=== PATIENT | female | born 1945 | race Caucasian/White ===

== ENCOUNTER → 2016-05-04 | Outpatient (REF) | payer MEDICARE, MEDICAID | LOC: M LAB REF 16:43 | PROVIDERS: ATTEND Nurse Practitioner Family | DX: D51.9 Vitamin B12 deficiency anemia, unspecified (principal); Z01.89 Encounter for other specified special examinations ==

== ENCOUNTER 2018-11-13 20:09 | Emergency (ER) | payer MEDICARE, OTHER ==
[~2018-11-13] VITALS: Ht 170.2 cm; Wt 90.9 kg
[2018-11-13] MEDS ORDERED: XALA0.007 OU (20:25)
[2018-11-13] MEDS ORDERED: ANOR1AER PO (20:25)
[2018-11-13] MEDS ORDERED: SIMB1SUS OS (20:25)
[2018-11-13] MEDS ORDERED: CYMB60CA3 PO (20:25)
[2018-11-13] MEDS ORDERED: VALP1CAP2 PO (20:25)
[2018-11-13] MEDS ORDERED: LIPI20TA PO (20:25)
[2018-11-13] MEDS ORDERED: RHOP0.02 OS (20:25)
[2018-11-13] MEDS ORDERED: SINE25TA5 PO (20:25)
[2018-11-13] MEDS ORDERED: CORE6.25 PO (20:25)
[2018-11-13] MEDS ORDERED: SERO1TAB3 PO (20:25)
[2018-11-13] MEDS ORDERED: POTA10TA16 PO (20:25)
[2018-11-13 21:43] LABS: HEMATOCRIT 31.1 % (36.0-47.0); HEMOGLOBIN 10.2 g/dl (12.0-15.5); MEAN CORPUSCULAR HEMOGLOBIN 29.7 pg (27.0-33.0); MEAN CORPUSCULAR HGB CONC 32.8 g/dl (32.0-36.5); MEAN CORPUSCULAR VOLUME 90.7 fl (80.0-96.0); PLATELET COUNT, AUTOMATED 101 10^3/uL (150-450); RED BLOOD COUNT 3.43 10^6/uL (4.00-5.40); WHITE BLOOD COUNT 5.1 10^3/uL (4.0-10.0)
[2018-11-13] MEDS ORDERED: ONDANSETRON 4MG/2ML VIAL (J2405) IV ONE (21:45)
[2018-11-13] MEDS ORDERED: NS 1,000 ML IV ONE (21:45)
[2018-11-13 21:51] LABS: ANISOCYTOSIS 1+; EOSINOPHILS 2 % (0-3); LYMPHOCYTES 23 % (16-44); MONOCYTES 3 % (0-5); NEUTROPHILS 71 % (28-66); POIKILOCYTOSIS 1+
[2018-11-13 21:52] LABS: PLATELET ESTIMATE DECREASED (NORMAL)
[2018-11-13 22:02] LABS: ALBUMIN 2.3 GM/DL (3.2-5.2); ALT/SGPT < 6 U/L (12-78); BILIRUBIN,DIRECT 0.1 MG/DL (0.0-0.2); BILIRUBIN,TOTAL 0.5 MG/DL (0.2-1.0); CK-MB VALUE MASS < 1.0 NG/ML (<3.6); CPK CREATINE PHOSPHOKINASE 43 U/L (26-192); LIPASE 81 U/L (73-393); MB/CK RELATIVE INDEX 2.33 (< OR =4); TOTAL PROTEIN 5.6 GM/DL (6.4-8.2); TROPONIN I < 0.02 NG/ML (< 0.10)
[2018-11-13 22:42] LABS: BLOOD UREA NITROGEN 21 MG/DL (7-18); CALCIUM LEVEL 7.9 MG/DL (8.8-10.2); CARBON DIOXIDE LEVEL 30 MEQ/L (21-32); CHLORIDE LEVEL 100 MEQ/L (98-107); CREATININE FOR GFR 0.76 MG/DL (0.55-1.30); GLOMERULAR FILTRATION RATE > 60.0 (>39); GLUCOSE, FASTING 108 MG/DL (70-100); POTASSIUM SERUM 3.7 MEQ/L (3.5-5.1); SODIUM LEVEL 137 MEQ/L (136-145)
[2018-11-13] MEDS ORDERED: ISOVUE-370 76% 100ML VIAL (Q9967) As Ordered ONE (23:12)
--- NOTE | 2018-11-14 00:27 | REPVR ---
PROCEDURE INFORMATION: Exam: CT Abdomen And Pelvis With Contrast Exam date and time: 11/13/2018 10:57 PM Clinical history: 73 years old, female; Abdominal pain; Epigastric; Additional info: Epigastric pain, n/v/d TECHNIQUE: Imaging protocol: Computed tomography of the abdomen and pelvis with intravenous contrast. Radiation optimization: All CT scans at this facility use at least one of these dose optimization techniques: automated exposure control; mA and/or kV adjustment per patient size (includes targeted exams where dose is matched to clinical indication); or iterative reconstruction. Contrast material: ISO; Contrast volume: 100 ml; Contrast route: AC; COMPARISON: No relevant prior studies available. FINDINGS: Liver: Normal. No mass. Gallbladder and bile ducts: There has been prior cholecystectomy. Pancreas: Normal. No ductal dilation. Spleen: Normal. No splenomegaly. Adrenals: Normal. No mass. Kidneys and ureters: There is an 11 mm heterogeneous solid mass in the upper pole of the left kidney. Small cysts elsewhere in the left kidney. Right kidney is unremarkable. No hydronephrosis. Stomach and bowel: Generalized wall thickening throughout the colon. No bowel obstruction. The small bowel is unremarkable. Appendix: No evidence of appendicitis. Intraperitoneal space: Trace free fluid in the pelvis. No pneumoperitoneum. Vasculature: No pneumatosis or portal venous gas. Lymph nodes: Unremarkable. No enlarged lymph nodes. Bladder: Mild urinary bladder wall thickening with mucosal enhancement. Reproductive: Unremarkable as visualized. Bones/joints: Unremarkable. No acute fracture. Soft tissues: Unremarkable. IMPRESSION: 1. Pancolitis. No bowel obstruction or perforation. 2. Small enhancing mass in the upper pole of the left kidney is concerning for renal cell neoplasm. No evidence of metastatic disease. 3. Bladder wall thickening concerning for cystitis. COMMENT: Consistent with the [employer]'s Incidental Findings Committee Report (J Am Javon Radiol 2010): Unless the patient's specific circumstances suggest otherwise, any liver lesion 0.5 cm or less, any cystic kidney lesion less than 1.0 cm, and/or any adrenal lesion 1.0 cm or less not otherwise characterized in this report as possessing suspicious or indeterminate imaging features is/are highly likely to be benign and do not require follow-up imaging or biopsy. Electronically signed by: Hadley Dsouza On 11/14/2018 00:27:36 AM
--- NOTE | 2018-11-14 00:34 | REPVR ---
PROCEDURE INFORMATION: Exam: CT Chest With Contrast Exam date and time: 11/13/2018 10:57 PM Clinical history: 73 years old, female; Chest pain; Type not specified; Additional info: Epigastric pain, n/v/d TECHNIQUE: Imaging protocol: Computed tomography of the chest with intravenous contrast. Radiation optimization: All CT scans at this facility use at least one of these dose optimization techniques: automated exposure control; mA and/or kV adjustment per patient size (includes targeted exams where dose is matched to clinical indication); or iterative reconstruction. Contrast material: ISO; Contrast volume: 100 ml; Contrast route: AC; COMPARISON: No relevant prior studies available. FINDINGS: Lungs: Advanced emphysematous changes. Postoperative changes with interstitial scarring in the right upper lobe. No air space consolidation. Airways are clear. Pleural space: Unremarkable. No pneumothorax. No pleural effusion. Heart: Unremarkable. No cardiomegaly. No pericardial effusion. Aorta: Unremarkable. No aortic aneurysm. Lymph nodes: Unremarkable. No enlarged lymph nodes. Bones/joints: Unremarkable. No acute fracture. Soft tissues: Unremarkable. IMPRESSION: 1. Postoperative changes in the right upper lobe. 2. Emphysema. 3. No acute disease. Electronically signed by: Hadley Dsouza On 11/14/2018 00:34:02 AM
[2018-11-14] MEDS ORDERED: CIPROFLOXACIN 500 MG TAB PO ONE (04:30)
[2018-11-14] MEDS ORDERED: metroNIDAZOLE (FLAGYL) 500 MG TAB PO ONE (04:30)
[2018-11-14] MEDS ORDERED: FLAG500T PO (04:32)
[2018-11-14] MEDS ORDERED: CIPR-249 PO (04:32)
[2018-11-14] MEDS ORDERED: ONDA4TAB6 PO (04:32)
[2018-11-14 04:39] VITALS: BP 154/78
--- NOTE | 2018-11-15 07:46 | ED PDOC ---
Post-Departure Follow-[facility] ct abd/p for fu Kathleen Waite MD Nov 15, 2018 07:46
== END 2018-11-14 05:13 | disposition home or self-care (01) ==
LOC: M ED 20:09
DX: N30.00 Acute cystitis without hematuria (principal); K52.9 Noninfective gastroenteritis and colitis, unspecified; R93.422 Abnormal radiologic findings on diagnostic imaging of left kidney; J43.9 Emphysema, unspecified; I10 Essential (primary) hypertension; Z79.899 Other long term (current) drug therapy; Z79.82 Long term (current) use of aspirin

== ENCOUNTER 2018-11-16 05:13 | Inpatient (IN) | payer MEDICARE, OTHER ==
[2018-11-16] VITALS (9 sets, daily range): BP systolic 112–149; BP diastolic 56–80
[~2018-11-16] VITALS: Ht 162.6 cm; Wt 99.2 kg
[~2018-11-16 05:13] MED LIST: ANOR1AER PO; CIPR-249 PO; CORE6.25 PO; CYMB60CA3 PO; FLAG500T PO; LIPI20TA PO; ONDA4TAB6 PO; POTA10TA16 PO; RHOP0.02 OS; SERO1TAB3 PO; SIMB1SUS OS; SINE25TA5 PO; VALP1CAP2 PO; XALA0.007 OU
[2018-11-16 05:49] LABS: BASO # 0.1 10^3/uL (0.0-0.2); BASO % 0.4 % (0.0-1.0); EOS # 0.3 10^3/uL (0.0-0.5); EOS % 2.7 % (0.0-3.0); HEMATOCRIT 35.6 % (36.0-47.0); HEMOGLOBIN 11.4 g/dl (12.0-15.5); LYMPH % 17.4 % (24.0-44.0); MEAN CORPUSCULAR HEMOGLOBIN 29.6 pg (27.0-33.0); MEAN CORPUSCULAR VOLUME 92.5 fl (80.0-96.0); MONO # 0.7 10^3/uL (0.0-0.8); MONO % 5.9 % (0.0-5.0); NEUTROPHILS # 8.3 10^3/uL (1.5-8.5); NEUTROPHILS % 72.7 % (36.0-66.0); RED BLOOD COUNT 3.85 10^6/uL (4.00-5.40); WHITE BLOOD COUNT 11.4 10^3/uL (4.0-10.0)
[2018-11-16] MEDS ORDERED: VALPROATE SOD IV ONE (06:00)
[2018-11-16] MEDS ORDERED: D5W IV ONE (06:00)
[2018-11-16 06:11] LABS: ALBUMIN 2.4 GM/DL (3.2-5.2); ALT/SGPT < 6 U/L (12-78); BILIRUBIN,DIRECT 0.1 MG/DL (0.0-0.2); BILIRUBIN,TOTAL 0.5 MG/DL (0.2-1.0); BLOOD UREA NITROGEN 14 MG/DL (7-18); CALCIUM LEVEL 8.2 MG/DL (8.8-10.2); CARBON DIOXIDE LEVEL 26 MEQ/L (21-32); CHLORIDE LEVEL 102 MEQ/L (98-107); CREATININE FOR GFR 0.96 MG/DL (0.55-1.30); GLOMERULAR FILTRATION RATE > 60.0 (>39); GLUCOSE, FASTING 129 MG/DL (70-100); POTASSIUM SERUM 3.8 MEQ/L (3.5-5.1); SODIUM LEVEL 137 MEQ/L (136-145); TOTAL PROTEIN 6.1 GM/DL (6.4-8.2); VALPROIC ACID (DEPAKOTE) 49.7 UG/ML (50.0-100.0)
[2018-11-16 06:13] LABS: PLATELET COUNT, AUTOMATED 91 10^3/uL (150-450)
[2018-11-16] MEDS ORDERED: NS 1,000 ML IV ONE (06:15)
--- NOTE | 2018-11-16 07:12 | REPVR ---
PROCEDURE INFORMATION: Exam: CT Head Without Contrast Exam date and time: 11/16/2018 5:58 AM Clinical history: 73 years old, female; Other: Seizure; Additional info: Status epilep TECHNIQUE: Imaging protocol: Computed tomography of the head without contrast. Radiation optimization: All CT scans at this facility use at least one of these dose optimization techniques: automated exposure control; mA and/or kV adjustment per patient size (includes targeted exams where dose is matched to clinical indication); or iterative reconstruction. COMPARISON: No relevant prior studies available. FINDINGS: Brain: There are well-demarcated areas of parenchymal hypoattenuation involving the bilateral parietal and occipital lobes. No evidence of acute intracranial hemorrhage or acute ischemic infarction within constraints of axial only imaging technique. Mild parenchymal volume loss. Questionable small amount of encephalomalacia and gliosis in the more anterior aspect of the left frontal lobe, difficult to ascertain for certain given axial technique. Ventricles: No ventriculomegaly. Bones/joints: No acute fracture. Sinuses: Visualized sinuses are unremarkable. No fluid levels. Mastoid air cells: Visualized mastoid air cells are well aerated. Soft tissues: Unremarkable. IMPRESSION: 1. No acute intracranial hemorrhage or convincingly acute ischemic infarction. 2. Large areas of hypoattenuation in the bilateral posterior cerebral hemispheres is nonspecific and may be the sequelae of subacute to chronic infarction (arterial or venous) or trauma. Edema as can be seen with posterior reversible encephalopathic syndrome it is possible in the appropriate clinical setting. Consider brain MRI for further evaluation. Electronically signed by: Arnaud Tee On 11/16/2018 07:11:57 AM
[2018-11-16] MEDS ORDERED: CHOL100029 PO (07:53)
[2018-11-16] MEDS ORDERED: SENO8.6T5 PO ×2 (07:53)
[2018-11-16] MEDS ORDERED: SALOPAD4 TOP (07:53)
[2018-11-16] MEDS ORDERED: METR-265 PO (07:53)
[2018-11-16] MEDS ORDERED: ACET-897 PO (07:53)
[2018-11-16] MEDS ORDERED: CIPR500T3 PO (07:53)
[2018-11-16] MEDS ORDERED: ATOR40TA75 PO (07:53)
[2018-11-16] MEDS ORDERED: ONDA4TAB6 PO (07:53)
[2018-11-16] MEDS ORDERED: LORazepam 2 MG/ML VIAL (J2060) IV STA (08:09)
[2018-11-16] MEDS ORDERED: ASPIRIN 300 MG SUPP PR STA (08:12)
[2018-11-16] MEDS ORDERED: levETIRAcetam INJection 1,000 MG in D5W 100 ML IV ONE (08:15)
[2018-11-16] MEDS ORDERED: ISOVUE-370 76% 100ML VIAL (Q9967) As Ordered ONE (08:20)
--- NOTE | 2018-11-16 09:10 | REPVR ---
PROCEDURE INFORMATION: Exam: CT Angiography Head With Contrast Exam date and time: 11/16/2018 8:32 AM Clinical history: 73 years old, female; Pain; Headache; Additional info: Evaluate for large vessel occlusion TECHNIQUE: Imaging protocol: Computed tomography angiography of the head with intravenous contrast. 3D rendering: MIP and 3D reconstructed images were created and reviewed. Radiation optimization: All CT scans at this facility use at least one of these dose optimization techniques: automated exposure control; mA and/or kV adjustment per patient size (includes targeted exams where dose is matched to clinical indication); or iterative reconstruction. Contrast material: ISOVUE 370; Contrast volume: 75 ml; Contrast route: IV; COMPARISON: CT Head without contrast 11/16/2018 6:04 AM FINDINGS: There is no high-grade stenosis, occlusion, dissection, or other acute abnormality of the distal internal carotid arteries, basilar artery, anterior, middle, or posterior cerebral arteries. No evidence of high flow vascular malformation. 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 Mild intracranial atherosclerosis. IMPRESSION: No high-grade stenosis or occlusion of the major [place] vasculature. 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 Electronically signed by: Arnaud Tee On 11/16/2018 09:09:59 AM
--- NOTE | 2018-11-16 09:17 | REPVR ---
PROCEDURE INFORMATION: Exam: CT Angiography Neck With Contrast Exam date and time: 11/16/2018 8:32 AM Clinical history: 73 years old, female; Pain; Headache; Additional info: Possible large vessel occlusion TECHNIQUE: Imaging protocol: Computed tomography angiography of the neck with intravenous contrast. 3D rendering: MIP and 3D reconstructed images were created and reviewed. Radiation optimization: All CT scans at this facility use at least one of these dose optimization techniques: automated exposure control; mA and/or kV adjustment per patient size (includes targeted exams where dose is matched to clinical indication); or iterative reconstruction. Contrast material: ISOVUE 370; Contrast volume: 75 ml; Contrast route: IV; COMPARISON: No relevant prior studies available. FINDINGS: There is no high-grade stenosis, occlusion, dissection, aneurysm, or other acute abnormality of the cervical carotid or vertebral arteries. Moderate calcified and noncalcified atherosclerotic plaque along the aortic arch mild atherosclerosis at the carotid bifurcations, with mild, less than 50% narrowing. Upper lung centrilobular emphysema, and surgical changes in the right upper lung with nodular soft tissue again present measuring up to 1.8 cm in the suprahilar region. IMPRESSION: No high-grade stenosis or occlusion of the cervical carotid or vertebral arteries. Surgical changes in the right upper lobe with nodular soft tissue in the suprahilar region. COMMENT: Reference per NASCET criteria for degree of stenosis: Mild: less than 50% stenosis. Moderate: 50-69% stenosis. Severe: 70-94% stenosis. Near occlusion: 95-99% stenosis. Electronically signed by: Arnaud Tee On 11/16/2018 09:17:15 AM
--- NOTE | 2018-11-16 09:36 | REP ---
REASON: Aspiration. COMPARISON: 05/20/2007, the latest prior. The technique utilized in obtaining the radiograph has magnified the cardiac silhouette and accentuated the interstitial markings. FINDINGS: The superior mediastinal structures are midline. The cardiac silhouette is unremarkable in size, shape, and position. The diaphragmatic surfaces of the lungs are regular, and the costophrenic angles are clear. The pulmonary matos are clear. The imaged osseous structures are intact. IMPRESSION: There is no acute cardiopulmonary disease. No significant change from the prior exam other than technique. Electronically Signed by Rajat Rodnon DO 11/16/2018 09:44 A
[2018-11-16] MEDS: NS 1,000 ML IV SCH ×2 (10:10→22:37)
--- NOTE | 2018-11-16 12:28 | HPEPDOC ---
[facility] Medical History & Physical Date of Admission Nov 16, 2018 Date of Service: Nov 16, 2018 Attending Physician: CUBA HARRELL MD History and Physical CHIEF COMPLAINT: Seizure activity HISTORY OF PRESENT ILLNESS: Patient is a 73 year old female who presented to the [facility] Emergency department via EMS accompanied by her sister. The entirety of the history was ascertained from the patients sister as the patient was nonverbal. The patient had recently arrived in [place]. Previously she was in [place] with her son who is her health care proxy. The patients sister had stated that she was previously hospitalized in [place] for Posterior Reversible encephalopathy Syndrome. The patients sister is unsure of the details surrounding the patients original presentation when she was hospitalized in [place]. She does state that the patient has lost her eyesight since developing PRES when in [place]. The patient was started on Valproic acid while in [place] and completed rehab. The patient was then discharged on returned to [facility]. According to the patients sister the patient was doing well when she returned. She was able to ambulate with assistance due to her vision loss and she was able to speak coherently. On November 13 2018, the patient was taken to the ER where she was diagnosed with a UTI. She had received an abdominal/pelvis CT at the time which demonstrated pancolitis and a small enhancing mass in the upper pole of the left kidney concerning for renal cell neoplasm however, no evidence of metastatic disease. She was treated with Cipro and Flagyl and discharged. The patients sister stated that since that time the patient appeared to be doing well. The patients sister states yesterday at 10:30 she had spoken with the patient and she appeared to be doing well. At around 0330 hrs the patients sister stated that the patient had called her stating that she was "feeling odd" and stated that she "couldn't speak very well" The patients sister had stated that the pa tient was not slurring her speech. The sister had arrived to find the patient sitting up with "twitching of her body" and had stated that it looked like a seizure. The patient remained awake during this event and according to the sister was able to comprehend and follow commands. EMS was called and upon arrival the patient started "twitching more violently". The patient was subsequently taken to [facility] ER. At the ER the patient was found to be nonresponsive and she was given 400mg Valproate IV. According to the ER provider the patient had shown improvement although was still non-verbal. The patient received a head CT which demonstrated no acute intracranial hemorrhage or acute ischemic infarction. There were large areas of hypoattenuation in the bilateral posterior cerebral hemispheres as well as edema consistent with PRES. Hospitalist service was subsequently contacted for further evaluation and management. On evaluation in the ER the patient remained nonverbal. She was arousable and followed commands. Her head was turned to the left with gaze to the left as well. She had hypertonic jerking motions of her left upper and lower extremity that was worse distally. Neurology was contacted for consultation and patient was given IV Ativan. A stat MRI was ordered in addition to CT angiography of the head and neck. Patient's last known well time was possibly 1030 PM or earlier. She was far outside the window to receive tPA. Imaging studies were acquired stat in the ER to evaluate for any large vessel disease; which did not reveal that to be the c ase. PAST MEDICAL HISTORY: Unknown as patient is currently non-verbal. Patients sister was unable to provide a Past medical history with exception to PRES 1. Posterior Reversible Encephalopathy Syndrome (PRES) 2. Recent diagnosis of Pancolitis and UTI/cystitis on Nov 13 2018 PAST SURGICAL HISTORY: Unknown as patient is nonverbal. SOCIAL HISTORY: Patient lives at home alone. FAMILY HISTORY: She has a sister who is alive and well. She has a son who is her health care proxy and lives in [place]. ALLERGIES: Please see below. REVIEW OF SYSTEMS: Unable to complete ROS as patient is non-verbal HOME MEDICATIONS: Please see below. PHYSICAL EXAMINATION: VITAL SIGNS: Temperature 95.9, pulse 78, respiratory rate 22, blood pressure 121/79, pulse oximetry 89% on room air. GENERAL APPEARANCE: Patient is awake. She does not appear to be in acute distress. She is lying in bed with head turned to her left and eyes gazed to left HEENT: Atraumatic, normocephalic. Eyes are nonicteric. Pupils are reactive to light although sluggish. Excessive secretions CARDIOVASCULAR: Normal S1, S2. Regular rhythm. Tachycardic rate. No clicks, rubs, or murmurs LUNGS: Clear vesicular lung sounds bilaterally. No wheezes, rhonchi, or rales ABDOMEN: Soft, nondistended. No rigidity. Normoactive bowel sounds. No palpable masses. No splenomegaly EXTREMITIES: No edema. Full and equal pulses in bilateral upper and lower extremities NEUROLOGICAL: Patient appears awake and alert. It appears she is able to follow some commands although this is inconsistent at times. Her Eyes are reactive to light although sluggish. Her gaze is predominately to the left although not fixed. Horizontal nystagmus is noted. There is no facial asymmetry. Patient has perioral fasciculations. The patients head is rotated and side bent to the left with hypertonicity of her left SCM. The patients right side appears to be hypotonic and areflexic. Her left side is hypertonic and hyperreflexic. She has lead pipe rigidity on her left arm and leg. She does have clonus elicited on the left lower extremity. As well as positive babinski bilaterally. Patient appears to have excess secretions and may indicate a difficulty with swallowing LABORATORY DATA: See below. IMAGING: REASON: Aspiration. COMPARISON: 05/20/2007, the latest prior. The technique utilized in obtaining the radiograph has magnified the cardiac silhouette and accentuated the interstitial markings. FINDINGS: The superior mediastinal structures are midline. The cardiac silhouette is unremarkable in size, shape, and position. The diaphragmatic surfaces of the lungs are regular, and the costophrenic angles are clear. The pulmonary matos are clear. The imaged osseous structures are intact. IMPRESSION: There is no acute cardiopulmonary disease. No significant change from the prior exam other than technique. Electronically Signed by Rajat Rondon DO 11/16/2018 09 PROCEDURE INFORMATION: Exam: CT Head Without Contrast Exam date and time: 11/16/2018 5:58 AM Clinical history: 73 years old, female; Other: Seizure; Additional info: Status epilep TECHNIQUE: Imaging protocol: Computed tomography of the head without contrast. Radiation optimization: All CT scans at this facility use at least one of these dose optimization techniques: automated exposure control; mA and/or kV adjustment per patient size (includes targeted exams where dose is matched to clinical indication); or iterative reconstruction. COMPARISON: No relevant prior studies available. FINDINGS: Brain: There are well-demarcated areas of parenchymal hypoattenuation involving the bilateral parietal and occipital lobes. No evidence of acute intracranial hemorrhage or acute ischemic infarction within constraints of axial only imaging technique. Mild parenchymal volume loss. Questionable small amount of encephalomalacia and gliosis in the more anterior aspect of the left frontal lobe, difficult to ascertain for certain given axial technique. Ventricles: No ventriculomegaly. Bones/joints: No acute fracture. Sinuses: Visualized sinuses are unremarkable. No fluid levels. Mastoid air cells: Visualized mastoid air cells are well aerated. Soft tissues: Unremarkable. IMPRESSION: 1. No acute intracranial hemorrhage or convincingly acute ischemic infarction. 2. Large areas of hypoattenuation in the bilateral posterior cerebral hemispheres is nonspecific and may be the sequelae of subacute to chronic infarction (arterial or venous) or trauma. Edema as can be seen with posterior reversible encephalopathic syndrome it is possible in the appropriate clinical setting. Consider brain MRI for further evaluation. Electronically signed by: Arnaud Tee On 11/16/2018 07:11:57 AM PROCEDURE INFORMATION: Exam: CT Angiography Head With Contrast Exam date and time: 11/16/2018 8:32 AM Clinical history: 73 years old, female; Pain; Headache; Additional info: Evaluate for large vessel occlusion TECHNIQUE: Imaging protocol: Computed tomography angiography of the head with intravenous contrast. 3D rendering: MIP and 3D reconstructed images were created and reviewed. Radiation optimization: All CT scans at this facility use at least one of these dose optimization techniques: automated exposure control; mA and/or kV adjustment per patient size (includes targeted exams where dose is matched to clinical indication); or iterative reconstruction. Contrast material: ISOVUE 370; Contrast volume: 75 ml; Contrast route: IV; COMPARISON: CT Head without contrast 11/16/2018 6:04 AM FINDINGS: There is no high-grade stenosis, occlusion, dissection, or other acute abnormality of the distal internal carotid arteries, basilar artery, anterior, middle, or posterior cerebral arteries. No evidence of high flow vascular malformation. 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 Mild intracranial atherosclerosis. IMPRESSION: No high-grade stenosis or occlusion of the major [place] vasculature. 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 Electronically signed by: Arnaud Tee On 11/16/2018 09:09:59 AM PROCEDURE INFORMATION: Exam: CT Angiography Neck With Contrast Exam date and time: 11/16/2018 8:32 AM Clinical history: 73 years old, female; Pain; Headache; Additional info: Possible large vessel occlusion TECHNIQUE: Imaging protocol: Computed tomography angiography of the neck with intravenous contrast. 3D rendering: MIP and 3D reconstructed images were created and reviewed. Radiation optimization: All CT scans at this facility use at least one of these dose optimization techniques: automated exposure control; mA and/or kV adjustment per patient size (includes targeted exams where dose is matched to clinical indication); or iterative reconstruction. Contrast material: ISOVUE 370; Contrast volume: 75 ml; Contrast route: IV; COMPARISON: No relevant prior studies available. FINDINGS: There is no high-grade stenosis, occlusion, dissection, aneurysm, or other acute abnormality of the cervical carotid or vertebral arteries. Moderate calcified and noncalcified atherosclerotic plaque along the aortic arch mild atherosclerosis at the carotid bifurcations, with mild, less than 50% narrowing. Upper lung centrilobular emphysema, and surgical changes in the right upper lung with nodular soft tissue again present measuring up to 1.8 cm in the suprahilar region. IMPRESSION: No high-grade stenosis or occlusion of the cervical carotid or vertebral arteries. Surgical changes in the right upper lobe with nodular soft tissue in the suprahilar region. COMMENT: Reference per NASCET criteria for degree of stenosis: Mild: less than 50% stenosis. Moderate: 50-69% stenosis. Severe: 70-94% stenosis. Near occlusion: 95-99% stenosis. Electronically signed by: Arnaud Tee On 11/16/2018 09:17:15 AM MICROBIOLOGY: Please see below. ASSESSMENT: Patient is a 73 year old female with a past medical history of PRES who presented to the [facility] ER via EMS for suspected stroke/seizure. Patient has received 400mg IV Valproic Acid, 1,000 mg IV Keppra, and IV Ativan. Neurology has been contacted and consulted with recommendations for further imaging with MRI . PLAN: Altered Mental Status / acute metabolic encephalopathy - possibly 2/2 post-ictal state - 2/2 to seizure; less likely 2/2 ischemic stroke -Patient presented with symptoms inconsistent with stroke or seizure. Her last known well was 2230 hr and places her outside the window for TPA. She has neurological symptoms that can not be attributed to a single etiology. She does have a history of PRES which can cause seizures. Patient has been on Valproic acid outpatient. -Patient's valproic level was subtherapeutic; her sister has indicated several episodes of vomiting and inability to keep down medications - possible suggesting why she developed subtherapeutic valproic acid and a seizure -Plan to admit to ICU for close monitoring. Q1H neurological checks. -IV Keppra and Seizure Precautions -CT angiography of head and Neck. -MRI brain w/O STAT -NPO diet -If patient develops seizure activity will consider Dilantin -Will get PT / OT / Speech therapy involved once mentation improves - Neurology has been consulted; appreciate their input Possible aspiration - patient was reported to have vomited several times in the ER - mild leukocytosis, positive lactic acidosis - Imaging completed did not reveal any evidence of infiltrate - Patient has been on antibiotics as an outpatient for suspected UTI / pancolitis; was covered with Ciprofloxacin and Flagyl - Recent urine culture has resulted in Klebsiella Pneumonia - Will cover with Zosyn (re: coverage for gram negative and anaerobic organisms) Lactic acidosis - has resolved - c/w IV fluid hydration Normocytic anemia Thrombocytopenia Elevated glucose - will check a1c DVT prophylaxis - c/w TEDs/ sequentials Vital Signs Vital Signs Date Time Temp Pulse Resp B/P (MAP) Pulse Ox O2 Delivery O2 Flow Rate FiO2 11/16/18 09:45 71 20 105/51 (69) 98 Nasal Cannula 11/16/18 08:45 3.0 11/16/18 05:33 95.9 Laboratory Data Labs 24H Laboratory Tests 2 11/16/18 05:27: Immature Granulocyte % (Auto) 0.9, White Blood Count 11.4H, Red Blood Count 3.85L, Hemoglobin 11.4L, Hematocrit 35.6L, Mean Corpuscular Volume 92.5, Mean Corpuscular Hemoglobin 29.6, Mean Corpuscular Hemoglobin Concent 32.0, Red Cell Distribution Width 14.9H, Platelet Count 91L, Neutrophils (%) (Auto) 72.7H, L ymphocytes (%) (Auto) 17.4L, Monocytes (%) (Auto) 5.9H, Eosinophils (%) (Auto) 2.7, Basophils (%) (Auto) 0.4, Neutrophils # (Auto) 8.3, Lymphocytes # (Auto) 2.0, Monocytes # (Auto) 0.7, Eosinophils # (Auto) 0.3, Basophils # (Auto) 0.1, Nucleated Red Blood Cells % (auto) 0.0, Immature Platelet Fraction 4.2, Anion Gap 9, Glomerular Filtration Rate > 60.0, Calcium Level 8.2L, Aspartate Amino Transf (AST/SGOT) 7, Alanine Aminotransferase (ALT/SGPT) < 6L, Alkaline Phosphatase 59, Total Bilirubin 0.5, Direct Bilirubin 0.1, Total Protein 6.1L, Albumin 2.4L, Albumin/Globulin Ratio 0.65L, Valproic Acid (Depakene) Level 49.7L 11/16/18 05:28: Bedside Glucose (Misc Panel) 136H 11/16/18 05:36: Lactic Acid Level 5.7*H CBC/BMP Laboratory Tests 11/16/18 05:27 Red Blood Count 3.85 L, Mean Corpuscular Volume 92.5, Mean Corpuscular Hemoglobin 29.6, Mean Corpuscular Hemoglobin Concent 32.0, Red Cell Distribution Width 14.9 H, Neutrophils (%) (Auto) 72.7 H, Lymphocytes (%) (Auto) 17.4 L, Monocytes (%) (Auto) 5.9 H, Eosinophils (%) (Auto) 2.7, Basophils (%) (Auto) 0.4, Neutrophils # (Auto) 8.3, Lymphocytes # (Auto) 2.0, Monocytes # (Auto) 0.7, Eosinophils # (Auto) 0.3, Basophils # (Auto) 0.1 Home Medications Scheduled Atorvastatin Calcium (Atorvastatin Calcium) 40 Mg Tablet, 40 MG PO QHS Brinzolamide/Brimonidine Tart (Simbrinza 1%-0.2% Eye Drops) 8 Ml Drops.susp, 1 DROP OS TID Carbidopa/Levodopa (Sinemet 25-100 mg Tablet) 1 Each Tablet, 2 TAB PO TID Carvedilol (Coreg) 6.25 Mg Tablet, 6.25 MG PO BID Ciprofloxacin HCl (Ciprofloxacin HCl) 500 Mg Tablet, 500 MG PO BID FILLED 11/14/18 FOR 7 DAYS Duloxetine Hcl (Cymbalta) 60 Mg Capsule.dr, 60 MG PO DAILY Latanoprost (Xalatan) 0.005% 2.5ML Drops, 1 DROP OU QHS Methyl Salicylate/Menthol (Salonpas Patch) 1 Each Adh..patch, 2 PATCH TOP DAILY APPLY TO AREA OF PAIN, REMOVE IN THE EVENING Metronidazole (Metronidazole) 500 Mg Tablet, 500 MG PO Q8H FILLED 11/14/18 FOR 10 DAYS Netarsudil Mesylate (Rhopressa) 2.5 Ml Drops, 1 DROP OS DAILY Potassium Chloride (Potassium Chloride) 10 Meq Tab.er.prt, 20 MEQ PO DAILY Quetiapine Fumarate (Seroquel) 25 Mg Tablet, 12.5 MG PO BID Sennosides (Senokot) 8.6 Mg Tablet, 17.2 MG PO QHS Umeclidinium Brm/Vilanterol Tr (Anoro Ellipta 62.5-25 Mcg INH) 1 Each Blst.w.dev, 1 PUFF PO DAILY Valproic Acid (Valproic Acid) 250 Mg Capsule, 500 MG PO TID Vitamin D (Vitamin D3) 1,000 Unit Tablet, 1,000 UNITS PO DAILY TAKE AFTER LUNCH Scheduled PRN Acetaminophen (Tylenol Extra Strength) 500 Mg Tablet, 1,000 MG PO TID PRN for PAIN Ondansetron (Ondansetron Odt) 4 Mg Tab.rapdis, 4 MG PO Q6H PRN for NAUSEA OR VOMITING Sennosides (Senokot) 8.6 Mg Tablet, 8.6 MG PO DAILY PRN for CONSTIPATION Allergies Coded Allergies: No Known Allergies (Unverified , 11/13/18) A-FIB/CHADSVASC A-FIB History Current/History of A-Fib/PAF?: No GME ATTESTATION GME ATTESTATION My faculty preceptor for this patient encounter was physically present during the encounter and was fully available. All aspects of the patient interview, examination, medical decision making process, and medical care plan development were reviewed and approved by the faculty preceptor. The faculty preceptor is aware and concurs with the plan as stated in the body of this note and will attest to such by his/her cosignature. ATTENDING NOTE I, Cuba Harrell, have independently examined this patient and performed my own physical exam, as well as reviewed the documentation and edited where necessary. I have discussed in detail with the resident / student the findings and plan of treatment as documented by the resident / student and edited their note. I agree with their findings and treatment plan and have edited their documentation. I will continue to follow the patient during this hospital stay. I have called HCP, Son: Kyle, and informed them of the findings of current imaging and plan of care He has expressed to me that his mother is currently Full Code; he noted that she does not want artificial life support - but still noted that if the situation arises he would want CPR and Intubation AHMET HERNANDEZ 12, 2019 12:28 CUBA HARRELL MD Nov 16, 2018 15:52
--- NOTE | 2018-11-16 13:19 | REPVR ---
PROCEDURE INFORMATION: Exam: MR Head Without Contrast Exam date and time: 11/16/2018 12:32 PM Clinical history: 73 years old, female; Altered mental status/memory loss and psychosis or psychotic disorder; Confusion or disorientation; Unspecified; Patient HX: PT has new onset seizure like activity, total disorientation, and loss of cognitive response. ; Additional info: Possible stroke TECHNIQUE: Imaging protocol: MR of the head without contrast. COMPARISON: CT Head without contrast 11/16/2018 6:04 AM FINDINGS: Limitations: Study is degraded by patient motion artifact. Brain: Encephalomalacia and gliosis in the bilateral parietal and occipital lobes with hemosiderin deposition likely from old hemorrhage causing regional susceptibility artifact. No restricted diffusion to suggest acute on chronic ischemic change. There is also gliosis in the left superior frontal gyrus and precentral gyrus. Moderate generalized cerebral and cerebellar volume loss. Ventricles: No obstructive ventriculomegaly. Bones/joints: Unremarkable. Soft tissues: Unremarkable. Sinuses: Normal as visualized. No acute sinusitis. Mastoid air cells: Normal as visualized. No mastoid effusion. Orbits: Unremarkable. IMPRESSION: 1. No acute intracranial normality within the constraints of moderate motion artifact. 2. The large areas of encephalomalacia and gliosis in the bilateral parietal and occipital lobes appear chronic and contain hemosiderin deposition from old hemorrhage, without restricted diffusion to suggest acute on chronic ischemia. Electronically signed by: Arnaud eTe On 11/16/2018 13:18:37 PM
--- NOTE | 2018-11-16 13:22 | REPVR ---
PROCEDURE INFORMATION: Exam: MR Angiogram Head Without Contrast, Arteries Exam date and time: 11/16/2018 12:32 PM Clinical history: 73 years old, female; Cognitive deficit and convulsions / seizures; Altered mental status; Type not specified; Patient HX: PT has new onset seizure like activity, total disorientation, and loss of cognitive response. ; Additional info: AMS TECHNIQUE: Imaging protocol: MR angiogram head without contrast. Exam focused on the arteries. 3D rendering: MIP reconstructed images were created and reviewed. COMPARISON: CT ANGIO HEAD 11/16/2018 8:26 AM FINDINGS: There is normal [id number] flow related signal intensity in the bilateral distal cervical internal carotid arteries through the carotid termini as well as within the distal V3 and V4 segments of the vertebral arteries. Normal flow related signal intensity within the basilar artery, anterior, middle and posterior cerebral arteries. No high-grade stenosis, occlusion, or other acute abnormality of the [place] vasculature. The known wide neck 5 mm left posteriorly projecting cavernous internal carotid artery aneurysm is better seen on the recent CTA. IMPRESSION: Normal flow related signal enhancement within the major [place] vasculature, with the exception of the known left cavernous ICA aneurysm. Electronically signed by: Arnaud Tee On 11/16/2018 13:21:54 PM
[2018-11-16 15:10] LABS: AMYLASE 13 U/L (25-115); LIPASE 74 U/L (73-393)
[2018-11-16] MEDS: PIPERACILLIN/TAZOBACTAM SOD 3.375 GM in D5W MINI-BAG PLUS 50 ML IV SCH ×2 (15:17→20:47)
[2018-11-16 16:43] LABS: HEMOGLOBIN A1c 6.2 %
[2018-11-16] MEDS: SINEMET 25-100 MG TAB NG SCH ×2 (18:19→20:19)
[2018-11-16 18:20] LABS: ABG BASE EXCESS -0.6 (-2.0-2.0); ABG HCO3 23.2 MEQ/L (22.0-26.0); ABG O2 SATURATION 98.3 % (95.0-99.0); ABG PARTIAL PRESSURE CO2 35.1 mmHg (35.0-45.0); ABG PARTIAL PRESSURE O2 119.6 mmHg (75.0-100.0); ABG TOTAL CO2 24.3 MEQ/L (23.0-31.0); ABG pH (ARTERIAL) 7.438 UNITS (7.350-7.450)
[2018-11-16 18:43] LABS: CK-MB VALUE MASS 2.2 NG/ML (<3.6); MB/CK RELATIVE INDEX 4.15 (< OR =4); TROPONIN I 0.28 NG/ML (< 0.10)
[2018-11-16] MEDS: VALPROATE SOD INJ 500 MG in D5W 50 ML IV SCH (18:46)
--- NOTE | 2018-11-16 18:49 | IPNPDOC ---
Date Seen The patient was seen on 11/16/18. Progress Note CHANGE IN CLINICAL STATUS Called to bedside regarding desaturations status post NG tube placement. Upon arrival patient had oxygen saturations of 87-88% on 3L non-rebreather via pulse oximetry. On physical exam patient had left sided rhonchi which was a significant change from earlier exam. She was tachypneic. A STAT chest x-ray was ordered demonstrating left sided opacification of significant change from admission imaging. NG tube was promptly removed. Patients saturations returned to 88-90%. Pulmonary/Fixed Assets Accountant was called and made aware of patients status with recommendations for repeat chest X-ray in 1 hour. An ABG was performed with pH 7.438, pCO2 35.1, PO2 119.6, HCO3 23.2. Blood gas results were communicated to On-call instrument processing tech. Patients oxygen saturations returned to 95-97% on 3L non-rebreather. LABORATORY DATA, IMAGING STUDIES, MICROBIOLOGY: Please see below. Assessment and Plan 1. Hypoxia -Likely secondary to suspected left main stem NG intubation, NG tube has been removed. -ABG performed which was essentially normal. -Repeat chest x-ray ordered for 1899 to evaluate for improvement. Pneumothorax is unlikely as patient has shown significant interval improvement in oxygenation since NG tube removal. -Patient is FULL CODE VS, I&O, 24H, [facility] Vital Signs/I&O Vital Signs Date Time Temp Pulse Resp B/P (MAP) Pulse Ox O2 Delivery O2 Flow Rate FiO2 11/16/18 15:38 69 22 120/58 (78) 99 Nasal Cannula 3.0 11/16/18 15:06 97.7 Laboratory Data 24H LABS Laboratory Tests 2 11/16/18 05:27: Immature Granulocyte % (Auto) 0.9, White Blood Count 11.4H, Red Blood Count 3.85L, Hemoglobin 11.4L, Hematocrit 35.6L, Mean Corpuscular Volume 92.5, Mean Corpuscular Hemoglobin 29.6, Mean Corpuscular Hemoglobin Concent 32.0, Red Cell Distribution Width 14.9H, Platelet Count 91L, Neutrophils (%) (Auto) 72.7H, Lymphocytes (%) (Auto) 17.4L, Monocytes (%) (Auto) 5.9H, Eosinophils (%) (Auto) 2.7, Basophils (%) (Auto) 0.4, Neutrophils # (Auto) 8.3, Lymphocytes # (Auto) 2.0, Monocytes # (Auto) 0.7, Eosinophils # (Auto) 0.3, Basophils # (Auto) 0.1, Nucleated Red Blood Cells % (auto) 0.0, Immature Platelet Fraction 4.2, Anion Gap 9, Glomerular Filtration Rate > 60.0, Calcium Level 8.2L, Aspartate Amino Transf (AST/SGOT) 7, Alanine Aminotransferase (ALT/SGPT) < 6L, Alkaline Phosphatase 59, Total Bilirubin 0.5, Direct Bilirubin 0.1, Total Protein 6.1L, Albumin 2.4L, Albumin/Globulin Ratio 0.65L, Valproic Acid (Depakene) Level 49.7L 11/16/18 05:28: Bedside Glucose (Misc Panel) 136H 11/16/18 05:36: Lactic Acid Level 5.7*H 11/16/18 10:48: Total Creatine Kinase 40 11/16/18 10:49: Lactic Acid Level 2.0 11/16/18 14:30: Amylase Level 13L, Lipase 74 11/16/18 16:04: Estimated Mean Plasma Glucose 131H, Hemoglobin A1c 6.2 11/16/18 18:04: 11/16/18 18:14: CBC/BMP Laboratory Tests 11/16/18 05:27 Red Blood Count 3.85 L, Mean Corpuscular Volume 92.5, Mean Corpuscular Hemog lobin 29.6, Mean Corpuscular Hemoglobin Concent 32.0, Red Cell Distribution Width 14.9 H, Neutrophils (%) (Auto) 72.7 H, Lymphocytes (%) (Auto) 17.4 L, Monocytes (%) (Auto) 5.9 H, Eosinophils (%) (Auto) 2.7, Basophils (%) (Auto) 0.4, Neutrophils # (Auto) 8.3, Lymphocytes # (Auto) 2.0, Monocytes # (Auto) 0.7, Eosinophils # (Auto) 0.3, Basophils # (Auto) 0.1 Microbiology Microbiology 11/16/18 Blood Culture, Received Pending 11/16/18 Blood Culture, Received Pending GME ATTESTATION GME ATTESTATION My faculty preceptor for this patient encounter was physically present during the encounter and was fully available. All aspects of the patient interview, examination, medical decision making process, and medical care plan development were reviewed and approved by the faculty preceptor. The faculty preceptor is aware and concurs with the plan as stated in the body of this note and will attest to such by his/her cosignature. ATTENDING NOTE I, [place] Patricia, have independently examined this patient and performed my own physical exam, as well as reviewed the documentation and edited where necessary. I have discussed in detail with the resident / student the findings and plan of treatment as documented by the resident / student and edited their note. I agree with their findings and treatment plan and have edited their documentation. I will continue to follow the patient during this hospital stay. AHMET HERNANDEZ DO Nov 16, 2018 18:49 CUBA PATRICIA MD Nov 19, 2018 17:48
[2018-11-16] MEDS: levETIRAcetam INJection 500 MG in D5W MINI-BAG PLUS 100 ML IV SCH ×2 (20:47→20:50)
[2018-11-16] MEDS ORDERED: levETIRAcetam INJection 1,000 MG in D5W 100 ML IV SCH (21:00)
[2018-11-16] MEDS ORDERED: levETIRAcetam INJection 750 MG in D5W 100 ML IV SCH ×4 (21:00)
[2018-11-16 21:15] LABS: APPEARANCE, URINE CLOUDY (CLEAR); BACTERIA, URINE AUTO 3+ (NEGATIVE); BILIRUBIN, URINE AUTO NEGATIVE (NEGATIVE); BLOOD, URINE BLOOD 1+ (NEGATIVE); COLOR, URINE YELLOW (YELLOW); GLUCOSE, URINE (UA) AUTO NEGATIVE (NEGATIVE); KETONE, URINE AUTO TRACE mg/dL (NEGATIVE); LEUKOCYTE ESTERASE, URINE AUTO 2+ (NEGATIVE); MUCUS, URINE LARGE (NEGATIVE); NITRITE, URINE AUTO POSITIVE (NEGATIVE); PROTEIN, URINE AUTO NEGATIVE (NEGATIVE); RBC, URINE AUTO 2 /HPF (0-3); SPECIFIC GRAVITY URINE AUTO 1.039 (1.002-1.035); SQUAMOUS EPITHELIAL CELL UR AU 2 /HPF (0-6); UROBILINOGEN, URINE AUTO 0.2 mg/dL (0.0-2.0); WBC, URINE AUTO 167 /HPF (0-3)
[2018-11-17] VITALS (32 sets, daily range): BP systolic 87–160; BP diastolic 46–93
[2018-11-17 00:50] LABS: MB/CK RELATIVE INDEX 3.28 (< OR =4); TROPONIN I 0.14 NG/ML (< 0.10)
[2018-11-17] MEDS: PIPERACILLIN/TAZOBACTAM SOD 3.375 GM in D5W MINI-BAG PLUS 50 ML IV SCH ×4 (02:45→21:11)
[2018-11-17] MEDS: VALPROATE SOD INJ 500 MG in D5W 50 ML IV SCH ×2 (02:45→11:32)
[2018-11-17 05:16] LABS: HEMATOCRIT 29.9 % (36.0-47.0); HEMOGLOBIN 9.6 g/dl (12.0-15.5); MEAN CORPUSCULAR HGB CONC 32.1 g/dl (32.0-36.5); MEAN CORPUSCULAR VOLUME 90.3 fl (80.0-96.0); RED BLOOD COUNT 3.31 10^6/uL (4.00-5.40); WHITE BLOOD COUNT 9.6 10^3/uL (4.0-10.0)
[2018-11-17 05:23] LABS: PLATELET COUNT, AUTOMATED 96 10^3/uL (150-450)
[2018-11-17 05:31] LABS: BLOOD UREA NITROGEN 11 MG/DL (7-18); CALCIUM LEVEL 7.5 MG/DL (8.8-10.2); CARBON DIOXIDE LEVEL 28 MEQ/L (21-32); CHLORIDE LEVEL 106 MEQ/L (98-107); CREATININE FOR GFR 0.77 MG/DL (0.55-1.30); GLOMERULAR FILTRATION RATE > 60.0 (>39); GLUCOSE, FASTING 103 MG/DL (70-100); POTASSIUM SERUM 3.1 MEQ/L (3.5-5.1); SODIUM LEVEL 140 MEQ/L (136-145)
[2018-11-17 05:58] LABS: MAGNESIUM LEVEL 1.1 MG/DL (1.8-2.4)
[2018-11-17 06:02] LABS: ABG BASE EXCESS 1.5 (-2.0-2.0); ABG HCO3 27.3 MEQ/L (22.0-26.0); ABG O2 SATURATION 95.9 % (95.0-99.0); ABG PARTIAL PRESSURE CO2 48.5 mmHg (35.0-45.0); ABG PARTIAL PRESSURE O2 84.8 mmHg (75.0-100.0); ABG STANDARD HCO3 25.8 MEQ/L (22.0-26.0); ABG TOTAL CO2 28.8 MEQ/L (23.0-31.0); ABG pH (ARTERIAL) 7.368 UNITS (7.350-7.450)
[2018-11-17] MEDS: MAG SULF 1GM/100ML (MAG RUN) 1 GM in IV 1 EA IV SCH ×4 (06:41→19:38)
[2018-11-17] MEDS: NS 1,000 ML IV SCH (07:59)
--- NOTE | 2018-11-17 08:44 | REP ---
REASON: Assess NG tube placement. COMPARISON: 01/16/2019 at 5:57 a.m. Today's exam 01/16/2019 at 5:40 pm. There is a curvilinear radiodensity seen coursing the esophagus consistent with a nasogastric tube, the tip of which is in the stomach fundal region. Since the last portable exam, a patchy opacity has developed in the left lower lobe. The patient is tilted and rotated to the right. The right lung is clear. There is mild cardiomegaly accentuated by technique. The technique utilized in obtaining the radiograph has magnified the cardiac silhouette and accentuated the interstitial markings. The osseous structures are stable and intact. IMPRESSION: 1. Nasogastric tube as described above. 2. Patchy opacities in the left lung base suggestive of pneumonia/atelectasis, correlate clinically with appropriate followup. Electronically Signed by Rajat Rondon DO 11/17/2018 09:01 A
--- NOTE | 2018-11-17 08:54 | REP ---
REASON: Followup. Today's exam 11/17/2018 at 6:46 a.m. compared to 11/16/2018 at 7:11 pm. The large left lung opacity is unchanged. The right lung remains clear. The technique utilized in obtaining the radiograph has magnified the cardiac silhouette and accentuated the interstitial markings. No significant change. Large left lung opacity atelectasis/pneumonia. Assess for mucous plug if clinically relevant. Electronically Signed by Rajat Rondon DO 11/17/2018 09:01 A
--- NOTE | 2018-11-17 08:57 | REP ---
REASON: Followup. Multiple priors were reviewed. The latest obtained today at 6:46 a.m. The technique utilized in obtaining the radiograph has magnified the cardiac silhouette and accentuated the interstitial markings. The left lung opacification appears near complete at this time. It has increased slightly from the prior exam. There are no other significant changes. IMPRESSION: Increasing left lung opacity of uncertain etiology. Complete atelectasis versus complete consolidation. Assess for mucous plug or other causes. Electronically Signed by aRjat Rondon DO 11/17/2018 09:01 A
--- NOTE | 2018-11-17 08:58 | REP ---
REASON: Hypoxia. COMPARISON: Multiple, the latest same day at 5:40 p.m. The opacity in the left lower lobe seen on the prior exam has increased. The nasogastric tube has been removed. The technique utilized in obtaining the radiograph has magnified the cardiac silhouette and accentuated the interstitial markings. Significantly increased left lung opacity or atelectasis/pneumonia. Electronically Signed by Rajat Rondon DO 11/17/2018 09:01 A
[2018-11-17] MEDS: SINEMET 25-100 MG TAB NG SCH ×3 (09:17→21:11)
[2018-11-17] MEDS: levETIRAcetam INJection 500 MG in D5W MINI-BAG PLUS 100 ML IV SCH ×4 (09:17→21:21)
[2018-11-17] MEDS: KCL 10MEQ/100ML SWI (KRUN) 10 MEQ in IV 1 EA IV SCH ×2 (09:17→10:15)
[2018-11-17] MEDS: ASPIRIN 300 MG SUPP PR SCH (09:20)
--- NOTE | 2018-11-17 09:50 | IPNPDOC ---
Text Note Date of Service The patient was seen on 11/17/18. NOTE Subjective: Patient is a 73 year old female with a PMhx of PRES (Dx 4 months prior), Seizure Hx / Behavioral issues? (on Depakote), Recent UTI / Pancolitis (Dx 11/13/18; on Cipro and Flagyl) who presented to the ER via EMS after she had called her sister and informed her that she was "feeling odd" and stated that she "couldn't speak very well." She had noted that her symptoms that started at 10:30 PM the night prior. EMS was summoned and patient was brought to emergency room for further evaluation. Patient was suspected of having a stroke/seizure immediately. Imaging was acquired, which is negative for any acute stroke. Patient was admitted to hospitalist service for further evaluation and treatment and urology was called on consultation. Yesterday evening patient became hypoxic and she was found to have opacification of her left lung field. She continued with chest PT serial imaging. Patient's saturation had improved with supplemental oxygen. ABGs did not reveal any significant evidence of respiratory failure to warrant intubation at this time. Pulmonology was consulted this morning. Patient was seen and examined at the bedside. Currently, patient remains non- arousable. However, she does retract pain upon sternal rub. Objective: Vitals (See below) General: Lying in bed, does not appear to be in any acute distress HEENT: NC, AT CVS: RRR, +S1S2 Lungs: Diminished lung sounds at left lung base, mild crackles appreciated at left lung base. No wheezing appreciated Abdomen: Soft, ND, NT Extremities: - Edema, - Calf tenderness Neuro: Patient does retract her left upper and lower extremities. Right upper extremity does not retract pain, right lower extremity does have some motion of her foot, however, does not have any motion of her proximal musculature, patient head is rotated to the left with gaze toward the left Imaging: CXR 11/16: There is no acute cardiopulmonary disease. No significant change from the prior exam other than technique. CT head 11/16: 1. No acute intracranial hemorrhage or convincingly acute ischemic infarction. 2. Large areas of hypoattenuation in the bilateral posterior cerebral hemispheres is nonspecific and may be the sequelae of subacute to chronic infarction (arterial or venous) or trauma. Edema as can be seen with posterior reversible encephalopathic syndrome it is possible in the appropriate clinical setting. Consider brain MRI for further evaluation. CTA Head 11/16: No high-grade stenosis or occlusion of the major [place] vasculature. 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 CTA Neck 11/16: No high-grade stenosis or occlusion of the cervical carotid or vertebral arteries. Surgical changes in the right upper lobe with nodular soft tissue in the suprahilar region. MRA Brain 11/16: Normal flow related signal enhancement within the major [place] vasculature, with the exception of the known left cavernous ICA aneurysm. MRI Brain 11/16: 1. No acute intracranial normality within the constraints of moderate motion artifact. 2. The large areas of encephalomalacia and gliosis in the bilateral parietal and occipital lobes appear chronic and contain hemosiderin deposition from old hemorrhage, without restricted diffusion to suggest acute on chronic ischemia. CXR 11/17: Increasing left lung opacity of uncertain etiology. Complete atelectasis versus complete consolidation. Assess for mucous plug or other causes. Assessment and plan: Acute metabolic encephalopathy - possibly 2/2 post-ictal state - 2/2 to seizure; less likely 2/2 ischemic stroke, possibly 2/2 medications withdrawal - Patient presented with symptoms inconsistent with stroke or seizure - Patient's last known well time was 10:30 PM; she was outside the window to receive TPA - A she was diagnosed with a prior history of breast 4 months ago by Neurology in [place] -Patient's valproic level was subtherapeutic; her sister has indicated several episodes of vomiting and inability to keep down medications - possible suggesting why she developed subtherapeutic valproic acid and a seizure - Will continue with Keppra 1000mg BID - c/w Neuro checks and Seizure precautions - Neurology on consultation - Will get PT / OT / Speech therapy involved once mentation improves - Will have NG tube reinserted to continue with home oral medications Acute hypoxic respiratory failure - likely 2/2 aspiration, possibly 2/2 atelectasis / mucous plugging - Yesterday evening. Patient became hypoxic and was requiring supplement oxygen - She had several episodes of vomiting while at home as well as in the emergency room - s/p leukocytosis; s/p lactic acidosis - Imaging does reveal evidence of left lung infiltrate/atelectasis - Recent urine culture has resulted in Klebsiella Pneumonia - Patient has been on antibiotics as an outpatient for suspected UTI / pancolitis; was covered with Ciprofloxacin and Flagyl - c/w Zosyn (re: coverage for gram negative and anaerobic organisms) - Day #2 - c/w Pulmonary toilette and chest PT - Pulmonology has been consulted Elevated troponin - likely 2/2 demand ischemia - Troponin has trended down - Telemetry strip does not reveal any ischemic changes and remains in sinus rhythm - Will repeat EKG s/p Lactic acidosis - c/w IV fluid hydration Normocytic anemia - Hemoglobin has trended down, likely 2/2 dilutional etiology Thrombocytopenia - No evidence of bleeding - Has improved Hypomagnesemia / Hypokalemia - Will supplement Elevated glucose - likely 2/2 pre-DM2 - Will continue to monitor DVT prophylaxis - c/w TEDs/ sequentials Code status: - Full code - Again discussed with Family; HCP - Son: Kyle; they would still pursue intubation if required until an EEG is acquired VS,Fishbone, I+O VS, Fishbone, I+O Laboratory Tests 11/17/18 04:58 Red Blood Count 3.31 L, Mean Corpuscular Volume 90.3, Mean Corpuscular Hemoglobin 29.0, Mean Corpuscular Hemoglobin Concent 32.1, Red Cell Distribution Width 14.9 H, Calcium Level 7.5 L Vital Signs Date Time Temp Pulse Resp B/P (MAP) Pulse Ox O2 Delivery O2 Flow Rate FiO2 11/17/18 08:00 97.4 78 16 138/71 (93) 96 40 11/16/18 16:00 3.0 11/16/18 15:38 Nasal Cannula I&O- Last 24 Hours up to 6 AM 11/17/18 06:00 Intake Total 3944 ml Output Total 365 ml Balance 3579 ml ABIMAEL PTARICIA MD Nov 17, 2018 09:50
--- NOTE | 2018-11-17 09:54 | CR ---
DATE OF CONSULTATION: 11/17/2018 START TIME: 819 STOP TIME: 856 I just attended Carmenza Lloyd here in the intensive care unit. The patient has been examined. Chart is reviewed. I have spoken at length with Dr. Harrell, as well as the nurse at the bedside. In essence, this is a 73-year-old female who prior to admission was independently living. She was brought to the hospital by her sister because she had become nonverbal. There was previously for a posterior reversible encephalopathy syndrome. There is question of a seizure disorder in the past, for which she was on valproic acid, but her level was subtherapeutic on admission. Workup today did show a negative MRI, but the patient remains essentially unresponsive. She had issues yesterday with some secretions. There was a question of an aspiration. She had progressive atelectasis of the left chest. Despite this, blood gas done yesterday shows a pH of 7.43, PCO2 of 35, pO2 of 119 on an aerosol mask. This morning on an aerosol mask at 50% has a pH of 7.368, PCO2 of 40.5, and a pO2 of 84.8. Chest x-ray does show significant light out of the left chest. On examination, blood pressure 114/90, heart rate in the 70s with a sinus mechanism, respiratory rate comfortable at 16-18 without accessory muscle use, and she is afebrile. HEENT: Shows pupils do react, but there are roaming eye movements, predominantly upwards and to the left. Sclerae generally clear. Trachea is in the midline. There is clearly a left facial droop. Chest show egophony at the left base. There is air entry at the left apex. Right chest is clear. Expansion of left chest is diminished. Cardiovascular examination: Shows a point of maximal impulse (PMI) to be displaced to the left. Cardiovascular examination is regular. Peripheral pulse palpable. No edema. Abdomen: Soft. There are active bowel sounds. No convincing organomegaly or masses. Extremities: Without cyanosis or clubbing. Neurologically, she moves only the left side to noxious stimuli. Right side is flaccid. Other laboratories show hemoglobin 9.6, platelet count of 96,000. Differential yesterday showed no bands. Sodium 140, potassium of 3.1, chloride 106, CO2 20, BUN 11, creatinine 0.77, glucose 103. Chest x-ray as outlined above. Pressing problems requiring my presence at the bedside: 1. Malclearance of secretions with atelectasis. 2. Neurologic deficit. Seizures versus stroke. I am told by Dr. Harrell that the healthcare proxy has said that the patient did not want life-sustaining interventions. This needs to be clarified, as clearly intubation and mechanical ventilation would be life-sustaining measures. Certainly, if they wished to proceed to that, then I would suggest early intervention via tracheostomy and placement of a percutaneous endoscopic gastrostomy (PEG) in view of her current presentation. Bronchoscopy would have short-lived benefits in view of her current mental status. Also, in view of her mental status, she is not a candidate for noninvasive support. In view of this, we will have a nasogastric (NG) tube inserted to help with medications and nutrition. We will increase her interventions with bronchodilators, as well as chest physiotherapy. She is empirically on Zosyn. I believe that is a reasonable choice, and her white blood cell count is normal. In view of her presentation, she is critically ill. She is now on Keppra. My hope is that if some of this is seizure-related, she may show some improvement. If she has no improvement in her mental status, then the likelihood of keeping her left lung fully inflated diminishes considerably. I have spoken with Dr. Harrell, and he will delineate her code status with the healthcare proxy, especially in view of the above and her previously-stated wishes. I left the bedside at 0857 hours. 37 minutes of critical care time delivered at the bedside, not including procedures.
[2018-11-17] MEDS: KCL 40MEQ in NS 1000ML 1,000 ML IV SCH ×2 (11:33→18:17)
[2018-11-17] MEDS: ALBUTEROL SULFATE 2.5 MG/0.5 ML INH NEB SOLN NEB SCH ×3 (11:41→19:54)
--- NOTE | 2018-11-17 12:44 | CR ---
DATE OF CONSULTATION: 11/16/2018 REASON FOR CONSULTATION: Seizure. HISTORY OF PRESENT ILLNESS: Carmenza Lloyd is a 73-year-old female who recently moved up to the [facility] from [place]. The patient has past medical history significant for posterior reversible encephalopathy syndrome (PRES). The patient did develop significant vision loss from that incident. It seems that the patient has significant encephalomalacia of bilateral occipital lobes with hemosiderin deposition. 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 The patient had one seizure at the onset of the PRES syndrome. The patient did also get treated for increased tone tremor and spasticity of the left side thought to be secondary to Parkinson's. The patient is treated with carbidopa-levodopa 25/100 two tablets p.o. t.i.d. The patient presented to [facility] after she called her sister stating that she was having difficulty speaking. The patient was having seizure-like activity of her left side of the body. The patient's head was turned towards the left with eyes deviated towards the left. The patient had flaccid weakness of the right upper and lower extremity. Head CT revealed possible PRES syndrome as per the report, although MRI clarified that that was old findings of encephalomalacia. The patient was noted to have hemosiderin deposition within the bed of bilateral occipital lobes suggesting prior hemorrhage. The patient also was noted to not have any acute stroke. CT angiogram of the head and neck revealed a intracranial aneurysm involving the cavernous segment of the carotid artery. 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 The patient likely will need outpatient neurosurgical evaluation for this aneurysm in the near future. The patient currently was loaded with 1000 mg of IV Keppra as well as given 2 mg of Ativan. The patient was having nausea, vomiting, upset stomach for the last few days and may not have been able to take her oral medications. Her valproic acid level was 49.7 which was subtherapeutic although not overtly low. The patient may have had a seizure secondary to withdrawal from Depakote so soon. The patient is currently admitted to the ICU. She remains lethargic, mostly unresponsive. She does localize to pain, withdraws both feet to pain and does have a tremor of the left upper extremity with increased tone and spasticity. The patient is nonverbal at this time. She has difficult time opening her eyes, but this may be the effects of postictal state as well as effects of Ativan. It is unclear why the patient currently takes carbidopa-levodopa when her sister states that she was ruled out for Parkinson's. Due to the high dose of Sinemet she is receiving, I have recommended the patient receive a nasogastric tube to be placed so that she can receive all of her oral medications on time. Her Depakote will be resumed as an IV formulation and Keppra will remain at 1000 mg twice a day. Next EEG has been ordered and is pending for Sunday. REVIEW OF SYSTEMS: Unobtainable as per the patient's mental status. FAMILY HISTORY: Noncontributory. SOCIAL HISTORY: The patient lives home alone. Does not use any tobacco, alcohol or illicit drugs. PAST MEDICAL HISTORY: History of posterior reversible encephalopathy syndrome (PRES). History of pancolitis. Urinary tract infection/cystitis on November 13, 2018. ALLERGIES: No known drug allergies. HOME MEDICATIONS: - acetaminophen p.r.n. - ondansetron 4 mg p.r.n. - senna p.r.n. - atorvastatin 40 mg q.h.s. - carbidopa-levodopa 20/100 mg 2 tablets p.o. t.i.d. - SIMBRINZA 1%-0.2% eye drops 1 drop OS t.i.d. - Coreg 6.25 mg p.o. b.i.d. - ciprofloxacin 500 mg p.o. b.i.d. - duloxetine 60 mg p.o. daily - latanoprost 2.5% 1 drop OU q.h.s. - methyl salicylate patch - Salonpas two patches topical daily - metronidazole 500 mg p.o. q. 8-hour - Rhopressa 2.5 mL drops 1 drop daily OS - potassium chloride 20 mEq daily - quetiapine 12.5 mg p.o. b.i.d. - valproic acid 500 mg p.o. t.i.d. - vitamin D 1000 international units p.o. daily - Anoro Ellipta 62.5-25 mcg inhaled 1 puff daily PHYSICAL EXAMINATION: Blood pressure is 140/61, pulse rate 84, respiratory rate is 18, temperature is 97.7 degrees Fahrenheit, oxygenation 94% on room air, current height is 5 feet 4 inches. Current weight is 87.2 kg. The patient is on responsive. She localizes to pain. Pupils appear to be round and reactive to light. The patient is legally blind due to past encephalomalacia bilateral occipital lobes. Tongue appears to be midline. Face appears to be asymmetric with lower motor neuron weakness of the left face. The patient keeps her head rested towards the left but can passively be placed towards the right side and midline easily. There is increased tone and spasticity of the left upper extremity with cogwheel rigidity. There is a postural tremor of the left upper extremity when the patient is sleeping. At rest there does not appear to be a tremor. Babinski signs appear to demonstrate withdrawal to noxious stimuli of the lower extremities. The right foot appears consistently showing positive Babinski sign. The left foot shows possible negative Babinski sign with withdrawal occasionally. Sensory is intact to pain in all four extremities with localization withdrawal to pain. The rest of the neurological examinable is unobtainable due to the patient's current cognitive state. ASSESSMENT: 1. 73-year-old female with past medical history of posterior reversible leukoencephalopathy syndrome with an uncommon complication of bilateral occipital lobe strokes with encephalomalacia and hemorrhage. 2. Incidental wide-based 5 mm left cavernous ICA aneurysm. 3. Probable seizure at onset possibly induced by a current illness, nausea, vomiting, unable to take oral Depakote possibly induced by ciprofloxacin lowering seizure threshold provoking seizure. MRI has ruled out any acute stroke. PLAN: 1. Obtain EEG on Sunday. 2. Resume Depakote 500 mg t.i.d. IV formulation. Agree with continuation of new levetiracetam 1000 mg p.o. IV b.i.d. 3. Place nasogastric tube for receiving all oral medications including avoidance of abrupt cessation of Sinemet. Continue Sinemet 25/100 mg 2 tablets p.o. t.i.d. for presumed Parkinson's disease. 4. The patient should have outpatient referral to endovascular neurosurgery for evaluation wide-based 5 mm left cavernous nonruptured aneurysm. 5. Recommend probable discontinuation of ciprofloxacin and switching to an alternative agent. 6. Continue supportive care. Continue every 2 hours neuro checks until the following morning, then switch to every 4 hours neuro checks. 7. Switch levetiracetam and Depakote to oral formulation once the patient is awake and able to swallow safely.
[2018-11-17] MEDS ORDERED: NS IV ONE (15:00)
[2018-11-17] MEDS ORDERED: PHENYTOIN IV ONE (15:00)
[2018-11-17] MEDS ORDERED: ETOMIDATE INJ 20MG/10ML VIAL As Ordered ONE (16:20)
[2018-11-17 16:21] LABS: ABG BASE EXCESS -0.6 (-2.0-2.0); ABG HCO3 24.6 MEQ/L (22.0-26.0); ABG O2 SATURATION 89.5 % (95.0-99.0); ABG PARTIAL PRESSURE CO2 42.5 mmHg (35.0-45.0); ABG STANDARD HCO3 23.9 MEQ/L (22.0-26.0); ABG TOTAL CO2 25.9 MEQ/L (23.0-31.0)
[2018-11-17] MEDS ORDERED: SUCCINYLCHOLINE INJ 200 MG/10 ML VIAL (J0330) As Ordered ONE (16:21)
[2018-11-17] MEDS ORDERED: PROPOFOL 1,000 MG/100 ML VIAL As Ordered ONE (16:23)
[2018-11-17] MEDS ORDERED: SUCCINYLCHOLINE INJ 200 MG/10 ML VIAL (J0330) IV STA (16:25)
[2018-11-17] MEDS ORDERED: ETOMIDATE INJ 20MG/10ML VIAL IV STA (16:25)
[2018-11-17 17:14] LABS: BASO % 0.2 % (0.0-1.0); EOS % 0.3 % (0.0-3.0); HEMATOCRIT 28.7 % (36.0-47.0); HEMOGLOBIN 9.4 g/dl (12.0-15.5); LYMPH # 1.2 10^3/uL (1.5-5.0); LYMPH % 14.2 % (24.0-44.0); MEAN CORPUSCULAR HEMOGLOBIN 30.2 pg (27.0-33.0); MEAN CORPUSCULAR HGB CONC 32.8 g/dl (32.0-36.5); MEAN CORPUSCULAR VOLUME 92.3 fl (80.0-96.0); MONO # 0.9 10^3/uL (0.0-0.8); NEUTROPHILS # 6.5 10^3/uL (1.5-8.5); NEUTROPHILS % 74.8 % (36.0-66.0); RED BLOOD COUNT 3.11 10^6/uL (4.00-5.40); WHITE BLOOD COUNT 8.7 10^3/uL (4.0-10.0)
[2018-11-17 17:18] LABS: PLATELET COUNT, AUTOMATED 97 10^3/uL (150-450)
[2018-11-17] MEDS: PROPOFOL 1,000 MG in IV 1 EA IV SCH ×2 (17:21→22:08)
--- NOTE | 2018-11-17 17:24 | ECGEPIP ---
[facility] Test Date: 2018-11-16 Pat Name: MAIKEL ZURITA Department: Room: [place] [address] Gender: Female Traffic Rate Analyst: OXANA : 1945 Requested By: VINCENZO ORELLANA Order Number: [id number] Reading MD: Najma Frost Measurements Intervals [place]ma Rate: 80 P: 12 OK: 141 QRS: -30 QRSD: 83 T: 9 QT: 400 QTc: 463 Interpretive Statements SINUS RHYTHM BORDERLINE LEFT AXIS DEVIATION LOW QRS VOLTAGE IN PRECORDIAL LEADS PATTERN CONSISTENT WITH PULMONARY DISEASE NO PRIOR Electronically Signed on 11-17-2018 17:24:10 EDT by Najma Frost
--- NOTE | 2018-11-17 17:25 | ECGEPIP ---
[facility] Test Date: 2018-11-17 Pat Name: MAIKEL ZURITA Department: Room: [place] [address] Gender: Female Optical Brightener Maker Helper: GENIE : 1945 Requested By: ABIMAEL PATRICIA Order Number: [id number] Reading MD: Najma Frost Measurements Intervals [place] Rate: 75 P: 20 CT: 145 QRS: -38 QRSD: 88 T: -6 QT: 420 QTc: 469 Interpretive Statements SINUS RHYTHM MARKED LEFT AXIS DEVIATION LOW QRS VOLTAGE IN PRECORDIAL LEADS SIMILAR TO 11/16/18 Electronically Signed on 11-17-2018 17:25:50 EDT by Najma Frost
[2018-11-17 17:35] LABS: ALBUMIN 2.1 GM/DL (3.2-5.2); ALT/SGPT < 6 U/L (12-78); BILIRUBIN,TOTAL 0.5 MG/DL (0.2-1.0); BLOOD UREA NITROGEN 9 MG/DL (7-18); CALCIUM LEVEL 7.7 MG/DL (8.8-10.2); CARBON DIOXIDE LEVEL 25 MEQ/L (21-32); CHLORIDE LEVEL 108 MEQ/L (98-107); CK-MB VALUE MASS 3.9 NG/ML (<3.6); CPK CREATINE PHOSPHOKINASE 288 U/L (26-192); CREATININE FOR GFR 0.74 MG/DL (0.55-1.30); GLOMERULAR FILTRATION RATE > 60.0 (>39); GLUCOSE, FASTING 122 MG/DL (70-100); MAGNESIUM LEVEL 1.5 MG/DL (1.8-2.4); MB/CK RELATIVE INDEX 1.35 (< OR =4); PHOSPHORUS LEVEL 2.7 MG/DL (2.5-4.9); SODIUM LEVEL 140 MEQ/L (136-145); TOTAL PROTEIN 5.3 GM/DL (6.4-8.2); TROPONIN I 0.11 NG/ML (< 0.10)
[2018-11-17 17:46] LABS: ABG BASE EXCESS 0.2 (-2.0-2.0); ABG HCO3 23.7 MEQ/L (22.0-26.0); ABG O2 SATURATION 98.7 % (95.0-99.0); ABG PARTIAL PRESSURE CO2 33.9 mmHg (35.0-45.0); ABG PARTIAL PRESSURE O2 142.1 mmHg (75.0-100.0); ABG STANDARD HCO3 24.7 MEQ/L (22.0-26.0); ABG TOTAL CO2 24.8 MEQ/L (23.0-31.0); ABG pH (ARTERIAL) 7.463 UNITS (7.350-7.450)
[2018-11-17] MEDS: PHENYTOIN 100 MG/2 ML VIAL (J1165) IV SCH (23:22)
[2018-11-18] VITALS (36 sets, daily range): BP systolic 86–157; BP diastolic 39–89
[2018-11-18] MEDS: ALBUTEROL SULFATE 2.5 MG/0.5 ML INH NEB SOLN NEB SCH ×6 (00:05→19:31)
[2018-11-18] MEDS: PIPERACILLIN/TAZOBACTAM SOD 3.375 GM in D5W MINI-BAG PLUS 50 ML IV SCH ×4 (02:29→20:34)
[2018-11-18] MEDS: KCL 40MEQ in NS 1000ML 1,000 ML IV SCH ×4 (04:35→20:34)
[2018-11-18] MEDS: PROPOFOL 1,000 MG in IV 1 EA IV SCH ×2 (04:49→19:00)
[2018-11-18 05:17] LABS: HEMOGLOBIN 8.4 g/dl (12.0-15.5); MEAN CORPUSCULAR HEMOGLOBIN 29.6 pg (27.0-33.0); MEAN CORPUSCULAR HGB CONC 32.3 g/dl (32.0-36.5); MEAN CORPUSCULAR VOLUME 91.5 fl (80.0-96.0); RED BLOOD COUNT 2.84 10^6/uL (4.00-5.40); WHITE BLOOD COUNT 5.7 10^3/uL (4.0-10.0)
[2018-11-18 05:19] LABS: PLATELET COUNT, AUTOMATED 80 10^3/uL (150-450)
[2018-11-18 05:33] LABS: BLOOD UREA NITROGEN 8 MG/DL (7-18); CALCIUM LEVEL 7.6 MG/DL (8.8-10.2); CARBON DIOXIDE LEVEL 25 MEQ/L (21-32); CHLORIDE LEVEL 109 MEQ/L (98-107); CREATININE FOR GFR 0.77 MG/DL (0.55-1.30); GLOMERULAR FILTRATION RATE > 60.0 (>39); GLUCOSE, FASTING 93 MG/DL (70-100); POTASSIUM SERUM 4.1 MEQ/L (3.5-5.1); SODIUM LEVEL 141 MEQ/L (136-145)
[2018-11-18 05:42] LABS: ABG BASE EXCESS -0.5 (-2.0-2.0); ABG HCO3 23.4 MEQ/L (22.0-26.0); ABG O2 SATURATION 98.1 % (95.0-99.0); ABG PARTIAL PRESSURE CO2 34.9 mmHg (35.0-45.0); ABG PARTIAL PRESSURE O2 117.9 mmHg (75.0-100.0); ABG STANDARD HCO3 24.1 MEQ/L (22.0-26.0); ABG TOTAL CO2 24.5 MEQ/L (23.0-31.0); ABG pH (ARTERIAL) 7.444 UNITS (7.350-7.450)
[2018-11-18] MEDS: VANCOMYCIN ORAL SOL 250MG/5ML ORAL SYRINGE PO SCH ×3 (06:21→18:45)
[2018-11-18] MEDS: PHENYTOIN 100 MG/2 ML VIAL (J1165) IV SCH ×2 (06:21→18:45)
--- NOTE | 2018-11-18 07:35 | REP ---
REASON: Followup. COMPARISON: Multiple, the latest earlier today at 8:00 a.m. Since the last examination a nasogastric tube has been placed. The tube is seen coursing the esophagus, the tip is outside the parameters of the radiograph inferiorly possibly within the duodenum. An endotracheal tube is also seen the tip of which is in satisfactory position at the level of the aortic knob. Complete opacification of the left hemithorax persists. The right lung is unchanged. The osseous structures are unchanged. IMPRESSION: As above. Electronically Signed by Rajat Rondon DO 11/18/2018 12:47 P
[2018-11-18] MEDS ORDERED: NS 500 ML IV ONE (08:00)
--- NOTE | 2018-11-18 08:01 | REP ---
PORTABLE CHEST X-RAY: Single view. HISTORY: Intubated patient. COMPARISON STUDY: November 17, 2018. FINDINGS: Endotracheal tube and nasogastric tube remain in good position. There is improved aeration in the left lung. Hazy opacity in the bases indicates bilateral pleural effusions, small. No infiltrate is seen. IMPRESSION: The left lung is been reinflated. There are small bilateral pleural effusions suspected. Endotracheal and nasogastric tubes in good position. Electronically Signed by Adriel Colón MD 11/18/2018 09:42 A
[2018-11-18] MEDS: SINEMET 25-100 MG TAB NG SCH ×3 (08:51→20:34)
[2018-11-18] MEDS: ASPIRIN 300 MG SUPP PR SCH (08:51)
[2018-11-18] MEDS ORDERED: PANTOPRAZOLE 40MG INJ (PROTONIX) (C9113) IV SCH (09:00)
--- NOTE | 2018-11-18 09:57 | CCN ---
DATE OF VISIT: 11/18/2018 START TIME: 0850 hours STOP TIME: 0928 hours I again attended Carmenza Lloyd here in the intensive care unit. The patient has been examined and chart reviewed. She had periods of apnea last evening requiring intubation and mechanical ventilation. Dr. Harrell has spoken at length with the family who, for now, wishes FULL CODE status. The patient had previously reportedly voiced concerns that she did not want to be on prolonged life support. T-max overnight 98.1, blood pressure 80-150s, heart rate generally in the 70s, respiratory rate currently 25 without accessory muscle use. Intake and output midnight to midnight 1651 mL in with 565 mL out. Most recent laboratories show a white blood cell count of 5.7, hemoglobin 8.4, platelet count 80,000. No differential this morning. Sodium 141, K of 4.1, chloride 109, CO2 25, BUN 8, creatinine 0.77. Blood gas done on a PRVC mode rate of 14, tidal volume of 400, PEEP of 5, FiO2 of 40% has pH of 7.444, pCO2 34.9, pO2 117.9. Chest x-ray shows reexpansion of the left chest this morning. Endotracheal and gastric tubes are in place. There are, I suspect, small basilar effusions and some subsegmental atelectasis. On exam, she does move her right side today. She remains unresponsive with diffuse spontaneous activity, which may either be myoclonic of seizure. Pupils do react. She does not interact. Membranes are moist. Trachea is in the midline. Chest is essentially clear to auscultation and percussion. There is some faint basilar crackles that do improve. Cardiac exam is regular. Peripheral pulses are palpable Trace edema. Abdomen is soft with active bowel sounds. No convincing organomegaly or masses. Extremities without cyanosis or clubbing. Neurologically as outlined above. The most pressing problems requiring my presence at the bedside: 1. Acute respiratory failure requiring mechanical ventilatory support and intubation. 2. Altered mental status, question seizures. At this point, ventilator manipulations have been made. There is no plans for weaning pending improvement in her mental status. She is getting an EEG currently. Certainly in view of the return movement of her right side, this seems to be more of a concern over primary seizure focus. This is being managed aggressively by neurology. At this point, we will continue her vent support. Ulcer and deep vein thrombosis (DVT) are in place. We will begin enteral feeds. We will proceed as outlined above. Hopefully, we will see some improvement in her mental status and then can facilitate the weaning process. At this point, however, she remains critically ill. Prognosis remains guarded at best. I left the bedside at 0928 hours. 38 minutes of critical care time were delivered at the bedside, not including procedures.
[2018-11-18] MEDS ORDERED: NS IV ONE (10:00)
[2018-11-18] MEDS ORDERED: PHENYTOIN IV ONE (10:00)
[2018-11-18] MEDS: CHLORHEXIDINE GLUCONATE 0.12 % 15ML UDC (PERIDEX ORAL RINSE) MT SCH ×2 (11:02→20:33)
[2018-11-18] MEDS: levETIRAcetam INJection 500 MG in D5W MINI-BAG PLUS 100 ML IV SCH ×4 (11:03→21:25)
--- NOTE | 2018-11-18 11:19 | IPNPDOC ---
Date Seen The patient was seen on 11/18/18. Progress Note SUBJECTIVE: Patient was seen and examined at bedside this morning. Last night the patient had developed apnea and was subsequently intubated. Currently she remains arousable. She is currently not following commands. Since intubation her left hemithorax has improved. She has been loaded on Dilantin and is currently planned for an EEG today. It appears her GI panel has resulted in C. diff as we ll. OBJECTIVE PHYSICAL EXAMINATION: VITAL SIGNS: Please see below. GENERAL: Awake. She is not alert or oriented. She responds to voice but follows commands inappropriately. HEENT: Atraumatic, normocephalic. Eyes are nonicteric. Trachea is midline. She is intubated with mechanical ventilation. She does have copious secretions CARDIOVASCULAR: Normal S1, S2. Regular rate and rhythm. No clicks rubs or murmurs RESPIRATORY: Clear breath sounds. No wheezing, rhonchi, or rales. She currently has improved breath sounds on the left. ABDOMINAL: Soft, nondistended. Bates catheter in place. Normoactive bowel sounds EXTREMITIES: No edema. Left 5th digit laceration that has been stitched prior to admission. Full and equal pulses in bilateral upper and lower extremities bilaterally. NEUROLOGICAL: Patient currently moves her right and left upper and lower extremities which is an interval change. Her pupils remain reactive. She does open her eyes to voice although follows commands inappropriately. She is able to move her head to the right and her gaze is no longer to the left. LABORATORY DATA, IMAGING STUDIES, MICROBIOLOGY: Please see below.r ASSESSMENT AND PLAN: Patient is a 73 year old female who presented to the [facility] ER for altered mental status and suspected to have had a seizure or CVA. She has a history of PRES. 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 There was no acute infarctions. Patient was seen by Neurology with recommendations to treat patient for suspected seizure activity. The patient has received valproic acid, Keppra, and Dilantin. She has gained function of the right side of her body. Over the weekend, the patient developed hypoxia and subsequently apnea. The cause is currently unknown however she has required intubation with mechanical ventilation. Patient is currently planned for an EEG today PROBLEMS: 1. Acute metabolic encephalopathy likely 2/2 seizure -Patient has a history of PRES and was recently hospitalized in [place]. Will obtain records from patients Neurologist in [place] -Patient had been vomiting and it is suspected that she was unable to keep her medications down. She was on Valproic acid outpatient and has had subthe rapeutic levels. -Patient has been continued on Keppra 1000 mg BID -Continue Neuro checks and seizure precautions -Neurology consultation has been placed. Recommendations appreciated. -EEG has been ordered and is being completed today -PT/OT once patients mentation improves. -Nasogastric tube has been inserted for patients oral medications -Versed PRN agitation 2. Acute hypoxemic respiratory failure requiring intubation and mechanical ventilation -Patient had developed left sided opacity and oxygen desaturations on 11/16/2018. Re-imaging demonstrated a left hemithorax. Patient was placed on chest PT for suspected mucous plugging. On 11/17/2018 patient developed apnea and respiratory failure and was subsequently intubated. There is an unclear etiology of her apnea. -Pulmonary consultation has been placed. Consultation is appreciated -X-ray this morning demonstrates resolution of left hemithorax 3. Elevated Troponin likely 2/2 demand ischemia -Patients troponins have normalized. Her elevation was likely secondary to demand. 4. Lactic Acidosis -Patient has received fluids with improvement. 5. Thrombocytopenia -No current evidence of bleeding or consumptive process -She is on Valproic acid outpatient which can cause thrombocytopenia 6. C. difficle colitis -On admission to the ER it was noted that the patient had diarrhea. She was seen in the ER preivously for a suspected cystitis. Her CT imaging of the abdomen demonstrated pancolitis. Patient has tested positive for C. diff -Patient is currently on PO vancomycin 7. Hyperglycemia -Possibly related to DM2 or stress hyperglycemia -Will continue to monitor 8. History of Parkinson's -Continue Sinemet via NG tube 9. Stress Ulcer Prophylaxis -Famotidine 10. DVT Prophylaxis -c/w TEDs/sequentials. DISPOSITION: Patient remains critically ill with guarded prognosis. Currently pending EEG. VS, I&O, 24H, Fishbone Vital Signs/I&O Vital Signs Date Time Temp Pulse Resp B/P (MAP) Pulse Ox O2 Delivery O2 Flow Rate FiO2 11/18/18 10:00 77 12 109/59 (76) 98 40 11/18/18 08:00 99.1 11/17/18 17:21 Ventilator 11/16/18 16:00 3.0 I&O- Last 24 Hours up to 6 AM 11/18/18 06:00 Intake Total 1934.9 ml Output Total 592 ml Balance 1342.9 ml Laboratory Data 24H LABS Laboratory Tests 2 11/17/18 16:10: Blood Gas Bicarbonate Standard 23.9, Arterial Blood pH 7.380, Arterial Blood Partial Pressure CO2 42.5, Arterial Blood Partial Pressure O2 59.0L, Arterial Blood Total CO2 25.9, Arterial Blood HCO3 24.6, Arterial Blood Base Excess -0.6, Arterial Blood Oxygen Saturation 89.5L 11/17/18 16:58: Immature Granulocyte % (Auto) 0.5, White Blood Count 8.7, Red Blood Count 3.11L, Hemoglobin 9.4L, Hematocrit 28.7L, Mean Corpuscular Volume 92.3, Mean Corpuscular Hemoglobin 30.2, Mean Corpuscular Hemoglobin Concent 32.8, Red Cell Distribution Width 15.0H, Platelet Count 97L, Neutrophils (%) (Auto) 74.8H, Lymphocytes (%) (Auto) 14.2L, Monocytes (%) (Auto) 10.0H, Eosinophils (%) (Auto) 0.3, Basophils (%) (Auto) 0.2, Neutrophils # (Auto) 6.5, Lymphocytes # (Auto) 1.2L, Monocytes # (Auto) 0.9H, Eosinophils # (Auto) 0.0, Basophils # (Auto) 0.0, Nucleated Red Blood Cells % (auto) 0.0, Immature Platelet Fraction 2.6, Anion Gap 7L, Glomerular Filtration Rate > 60.0, Lactic Acid Level 2.5*H, Blood Urea Nitrogen 9, Creatinine 0.74, Sodium Level 140, Potassium Level 4.0#, Chloride Level 108H, Carbon Dioxide Level 25, Calcium Level 7.7L, Phosphorus Level 2.7, Aspartate Amino Transf (AST/SGOT) 15, Alanine Aminotransferase (ALT/SGPT) < 6L, Total Creatine Kinase 288#H, Alkaline Phosphatase 54, Total Bilirubin 0.5, Total Protein 5.3L, Albumin 2.1L, Magnesium Level 1.5L, Creatine Kinase MB 3.9H, Creatine Kinase MB Relative Index 1.35, Troponin I 0.11#H, Albumin/Globulin Ratio 0.66L 11/17/18 17:35: Blood Gas Bicarbonate Standard 24.7, Arterial Blood pH 7.463H, Arterial Blood Partial Pressure CO2 33.9L, Arterial Blood Partial Pressure O2 142.1H, Arterial Blood Total CO2 24.8, Arterial Blood HCO3 23.7, Arterial Blood Base Excess 0.2, Arterial Blood Oxygen Saturation 98.7 11/17/18 22:23: Methicillin-Resist S.aureus DNA PCR POSITIVEH 11/17/18 22:42: Lactic Acid Followup at 4 Hours 2.3*H, Phenytoin (Dilantin) Level 5.4L 11/18/18 04:47: Nucleated Red Blood Cells % (auto) 0.0, Anion Gap 7L, Glomerular Filtration Rate > 60.0, Blood Urea Nitrogen 8, Creatinine 0.77, Sodium Level 141, Potassium L evel 4.1, Chloride Level 109H, Carbon Dioxide Level 25, Calcium Level 7.6L, Magnesium Level 2.0 11/18/18 05:24: Blood Gas Bicarbonate Standard 24.1, Arterial Blood pH 7.444, Arterial Blood Partial Pressure CO2 34.9L, Arterial Blood Partial Pressure O2 117.9H, Arterial Blood Total CO2 24.5, Arterial Blood HCO3 23.4, Arterial Blood Base Excess -0.5, Arterial Blood Oxygen Saturation 98.1 CBC/BMP Laboratory Tests 11/17/18 16:58 Red Blood Count 3.11 L, Mean Corpuscular Volume 92.3, Mean Corpuscular Hemoglobin 30.2, Mean Corpuscular Hemoglobin Concent 32.8, Red Cell Distribution Width 15.0 H, Neutrophils (%) (Auto) 74.8 H, Lymphocytes (%) (Auto) 14.2 L, Monocytes (%) (Auto) 10.0 H, Eosinophils (%) (Auto) 0.3, Basophils (%) (Auto) 0.2, Neutrophils # (Auto) 6.5, Lymphocytes # (Auto) 1.2 L, Monocytes # (Auto) 0.9 H, Eosinophils # (Auto) 0.0, Basophils # (Auto) 0.0, Calcium Level 7.7 L, Phosphorus Level 2.7, Aspartate Amino Transf (AST/SGOT) 15, Alanine Aminotransferase (ALT/SGPT) < 6 L, Total Creatine Kinase 288 #H, Alkaline Phosphatase 54, Total Bilirubin 0.5, Total Protein 5.3 L, Albumin 2.1 L 11/18/18 04:47 Red Blood Count 2.84 L, Mean Corpuscular Volume 91.5, Mean Corpuscular Hemoglobin 29.6, Mean Corpuscular Hemoglobin Concent 32.3, Red Cell Distribution Width 15.1 H, Calcium Level 7.6 L Microbiology Microbiology 11/18/18 Gastrointestinal Tract Panel (PCR) - Final, Complete Clostridium Difficile A/B 11/16/18 Blood Culture - Preliminary, Resulted No growth after 24 hours . All specim... 11/16/18 Blood Culture - Preliminary, Resulted No growth after 24 hours . All specim... GME ATTESTATION GME ATTESTATION My faculty preceptor for this patient encounter was physically present during the encounter and was fully available. All aspects of the patient interview, examination, medical decision making process, and medical care plan development were reviewed and approved by the faculty preceptor. The faculty preceptor is aware and concurs with the plan as stated in the body of this note and will att est to such by his/her cosignature. ATTENDING NOTE I, [place] Patricia, have independently examined this patient and performed my own physical exam, as well as reviewed the documentation and edited where necessary. I have discussed in detail with the resident / student the findings and plan of treatment as documented by the resident / student and edited their note. I agree with their findings and treatment plan and have edited their documentation. I will continue to follow the patient during this hospital stay. AHMET HERNANDEZ DO Nov 18, 2018 11:19 CUBA PATRICIA MD Nov 18, 2018 15:20
[2018-11-18] MEDS ORDERED: LIDOCAINE 1% MDV 20ML VIAL As Ordered ONE (16:19)
[2018-11-18] MEDS ORDERED: GLUCAGON FOR INJ 1 MG VIAL (J1610) SC PRN (17:30)
[2018-11-18] MEDS ORDERED: DEXTROSE 50% 50 ML SYRINGE IV PRN (17:30)
[2018-11-18] MEDS ORDERED: GLUCOSE 4 GM CHEW TABLET PO PRN (17:30)
[2018-11-18] MEDS ORDERED: SODIUM CHLORIDE 0.9% INJ 10 ML SYR IV PRN (18:00)
[2018-11-18] MEDS: HumaLOG INSULIN (NovoLOG) PER UNIT SC SCH (18:00)
[2018-11-18] MEDS: SODIUM CHLORIDE 0.9% INJ 10 ML SYR IV SCH (18:40)
--- NOTE | 2018-11-18 18:52 | REP ---
PICC line insertion under ultrasound guidance. The procedure was performed by ADARSH Sandoval, under the direct supervision of Dr. Colón. The risks and benefits of the procedure were explained to the patient and informed consent was obtained both verbally and written. Directly prior to the start of the procedure, a formal timeout was completed in the procedure room. The left brachial vein was localized using ultrasound guidance. The skin was prepped and draped in the sterile fashion. 1 ml 1% lidocaine was used as a local anesthetic. Using ultrasound guidance the left brachial vein was cannulated and a 0.018 guidewire was inserted and advanced to the SVC using serial portable chest x-rays as guidance. The needle was removed and a 5.5 Croatian dilator and peel-away sheath was inserted over the guidewire. A 5.5 Croatian dual lumen catheter was cut to the length of 35 cm. The dilator was removed and the catheter was inserted over the guide wire with the tip ending in the SVC. The peel-away sheath was removed and the catheter was flushed with heparinized saline as per hospital protocol. The catheter was affixed to the skin and a sterile dressing was applied. The patient tolerated the procedure well and there were no immediate complications. 0 minutes of fluoroscopy time was utilized for this procedure. Some fluoroscopic images are performed with last image hold technology. These images require no additional radiation. Reviewed by ADARSH Quinonez 11/18/2018 05:49 P Electronically Signed by Adriel Colón MD 11/18/2018 06:42 P
[2018-11-18] MEDS: FAMOTIDINE IV BAG 20 MG in IV 1 EA IV SCH (20:34)
[2018-11-19] VITALS (38 sets, daily range): BP systolic 75–114; BP diastolic 34–54; O2SAT 100
[2018-11-19] MEDS: ALBUTEROL SULFATE 2.5 MG/0.5 ML INH NEB SOLN NEB SCH ×7 (00:05→23:31)
[2018-11-19] MEDS: VANCOMYCIN ORAL SOL 250MG/5ML ORAL SYRINGE PO SCH ×5 (00:21→23:51)
[2018-11-19] MEDS ORDERED: NYSTATIN 100,000 UNITS/GM TOPICAL PWD 15 GM TOP PRN (02:00)
[2018-11-19] MEDS: PIPERACILLIN/TAZOBACTAM SOD 3.375 GM in D5W MINI-BAG PLUS 50 ML IV SCH ×4 (02:23→20:02)
[2018-11-19] MEDS: PHENYTOIN 100 MG/2 ML VIAL (J1165) IV SCH ×3 (02:24→17:22)
[2018-11-19] MEDS: PROPOFOL 1,000 MG in IV 1 EA IV SCH (03:40)
[2018-11-19] MEDS: KCL 40MEQ in NS 1000ML 1,000 ML IV SCH ×2 (05:17→13:06)
[2018-11-19] MEDS: SODIUM CHLORIDE 0.9% INJ 10 ML SYR IV SCH ×2 (05:18→17:22)
[2018-11-19 05:33] LABS: HEMATOCRIT 26.8 % (36.0-47.0); HEMOGLOBIN 8.4 g/dl (12.0-15.5); MEAN CORPUSCULAR HEMOGLOBIN 29.8 pg (27.0-33.0); MEAN CORPUSCULAR HGB CONC 31.3 g/dl (32.0-36.5); RED BLOOD COUNT 2.82 10^6/uL (4.00-5.40); WHITE BLOOD COUNT 5.1 10^3/uL (4.0-10.0)
[2018-11-19 05:41] LABS: PLATELET COUNT, AUTOMATED 67 10^3/uL (150-450)
[2018-11-19 05:53] LABS: BLOOD UREA NITROGEN 8 MG/DL (7-18); CALCIUM LEVEL 7.2 MG/DL (8.8-10.2); CARBON DIOXIDE LEVEL 23 MEQ/L (21-32); CHLORIDE LEVEL 111 MEQ/L (98-107); CREATININE FOR GFR 0.74 MG/DL (0.55-1.30); GLOMERULAR FILTRATION RATE > 60.0 (>39); GLUCOSE, FASTING 153 MG/DL (70-100); POTASSIUM SERUM 4.5 MEQ/L (3.5-5.1); SODIUM LEVEL 140 MEQ/L (136-145)
[2018-11-19 05:57] LABS: ABG HCO3 19.9 MEQ/L (22.0-26.0); ABG O2 SATURATION 96.8 % (95.0-99.0); ABG PARTIAL PRESSURE CO2 36.1 mmHg (35.0-45.0); ABG PARTIAL PRESSURE O2 91.1 mmHg (75.0-100.0); ABG STANDARD HCO3 20.3 MEQ/L (22.0-26.0); ABG pH (ARTERIAL) 7.359 UNITS (7.350-7.450)
[2018-11-19] MEDS: HumaLOG INSULIN (NovoLOG) PER UNIT SC SCH ×5 (06:11→23:51)
--- NOTE | 2018-11-19 07:09 | EEG ---
DATE OF EE11/18/2018 REFERRING PHYSICIAN: Dr. Cuba Harrell DIAGNOSIS: Hypertensive emergency and possible seizure. EEG NUMBER: [id number] HISTORY: Patient is a 73-year-old woman with history of hypertensive emergency in the past with stroke and cerebral hemorrhage who was admitted at [facility] due to possible seizure. This EEG was done to rule out epileptic potential. The patient is currently on Zosyn, Keppra, Dilantin and she was on Depakote until yesterday and her propofol was stopped an hour before her EEG. TECHNICAL DESCRIPTION: This digital EEG was recorded by 21 scalp, ear and two EKG electrodes and was reviewed in bipolar and referential montages following reformatting 10-20 international electrode placement system. INTERPRETATION: The patient remained unresponsive and intubated throughout this EEG. Background rhythm consisted of 5-6 Hz theta activity measuring 15-50 microvolts in amplitude, which was symmetric bilaterally. Hyperventilation could not be performed. No clear sleep stages were identified. Excessive muscle artifact due to bruxism was noted in bilateral temporal and right frontal head regions. No clear epileptiform abnormalities were seen. No relevant clinical activity was noted. EKG revealed normal sinus rhythm. CONCLUSION: This EEG in an intubated and unresponsive patient is abnormal due to presence of generalized slowing and disorganization of background consistent with nonspecific diffuse cerebral dysfunction such as seen in encephalopathy due to multiple potential causes including toxic, metabolic, infectious, medication related or multifocal structural brain abnormalities. No clear epileptiform abnormalities were seen. Excessive muscle artifact was noted as described above. Clinical correlation is recommended.
[2018-11-19 09:25] LABS: PHENYTOIN (DILANTIN) 9.7 UG/ML (10.0-20.0)
--- NOTE | 2018-11-19 09:55 | REP ---
Single view chest: 11/19/2018. Indication: Intubated. Comparison: Previous day. Findings: The patient has undergone placement of a right-sided PICC line with the distal tip at the cavoatrial junction. Remaining lines and tubes are unchanged in position. Right-sided pleural effusion may be slightly increased, otherwise the lungs and cardiac silhouette are unchanged. Impression: Essentially stable exam with the exception of interval placement of a right-sided PICC line. Electronically Signed by Zion Love DO 11/19/2018 09:45 A
[2018-11-19] MEDS: MIDAZOLAM INJ 2 MG/2 ML VIAL (J2250) IV PRN ×6 (09:57→23:51)
[2018-11-19] MEDS: ASPIRIN 300 MG SUPP PR SCH (10:04)
--- NOTE | 2018-11-19 10:10 | CCN ---
DATE: 11/19/2018 START TIME: 841 STOP TIME: 916 I again attended Carmenza Lloyd here in the intensive care. Patient was examined and chart was reviewed. I spoke at length with the primary service as well as the nurse at the bedside. She has placed back on propofol and that has been discontinued this morning. EEG report is in the chart and shows only some nonspecific findings but no seizure focus. Maximum temperature overnight 96.3 with a heart rate generally in the 60-70's with a sinus mechanism. Blood pressure 90's-100's systolic. Intake and output midnight to midnight 4360 mL in with 470 mL out. Most recent labs show a white blood cell count of 5.1, hemoglobin 8.4, platelet count 67,000. No differential today. Sodium 140, potassium 4.5, chloride 111, CO2 23, BUN 8, creatinine 0.74, glucose 153, blood gas this done in PRBC mode rate of 8, total volume of 400, Peep Fi02 40%, pH 7.359, PC02 36.1, PO2 91.1. Chest x-ray shows good expansion of the left chest. There are bilateral pleural effusions. Stool did grow c-diff and that is being appropriately treated. On exam she is sedated. She still has some spontaneous twitching. Pupils react sclera is clear. Trachea is midline. She does not follow commands but currently is on Propofol. Chest shows some occasional rhonchi dependantly but clear with suctioning. Expansion is symmetric. Fairly clear anteriorly. There is some dependant crackles with decreased breath sounds at the bases. Heart exam distant but regular. Peripheral pulse is palpable. Trace edema. Abdomen obese, soft with active bowel sounds. No complaint of mass. Neurologically as outlined above The most pressing problems requiring my presence at bedside is 1. Respiratory failure requiring mechanical ventilatory support. 2. Atelectasis, improved. 3. Altered mental status with seizures versus myoclonus. At this point we will change her to a standard mode of ventilation in hopes of facilitating wheezing. If she has improvement in her mental status. In preparation for this we will discontinue the Propofol. She is on anti- epileptiform drugs via neurology and the primary service. We will use as needed Versed if she needs sedation. If she does have significant secretions with no fever and no white count we will send a sputum. Her positive c-diff is being treated through the primary service. She has decreased platelet count and therefore we will discontinue her Heparin products and check a Heparin antibody. DVT prophylaxis is in place. At this point however she remains critically ill. She is tolerating tube feeds. I left the bedside at 0917 hours, 35 minutes of critical care time at the bedside not including procedures.
[2018-11-19] MEDS: CHLORHEXIDINE GLUCONATE 0.12 % 15ML UDC (PERIDEX ORAL RINSE) MT SCH ×2 (10:19→20:02)
[2018-11-19] MEDS: SINEMET 25-100 MG TAB NG SCH ×3 (10:19→20:04)
[2018-11-19] MEDS: FAMOTIDINE IV BAG 20 MG in IV 1 EA IV SCH ×2 (10:20→20:04)
[2018-11-19] MEDS: levETIRAcetam INJection 500 MG in D5W MINI-BAG PLUS 100 ML IV SCH ×4 (10:20→20:39)
[2018-11-19] MEDS ORDERED: NS 500 ML IV ONE ×3 (14:30→17:15)
--- NOTE | 2018-11-19 16:45 | IPNPDOC ---
Date Seen The patient was seen on 11/19/18. Progress Note SUBJECTIVE: Patient was seen and examined this morning. She continues to be sedated and intubated with mechanical ventilation. There have been no adverse events reported overnight. Today there was reported episodes of hypotension for which she had received two 500ml IV boluses. The patient has been taken off of propofol and is currently getting versed prn for agitation. She is continued on her antiepileptic drugs with therapeutic levels. The patient did have an EEG performed which had nonspecific findings. Her records from [facility] are available in the chart and were reviewed. OBJECTIVE PHYSICAL EXAMINATION: VITAL SIGNS: Please see below. GENERAL: Patient is currently sedated. She is intubated with mechanical ventilation. She does respond to pain. HEENT: Atraumatic, normocephalic. Eyes are nonicteric. trachea is midline. Patient is intubated with mechanical ventilation. CARDIOVASCULAR: Normal S1, S2. Regular rate and rhythm. No clicks, rubs, or murmurs. RESPIRATORY: Patient has clear breath sounds. Slight rales in the bases bilaterally. Scattered wheezing is present. Chest rise is symmetric ABDOMINAL: Soft, obese. Nondistended. Bates in place. Normoactive bowel sounds EXTREMITIES: No edema. Full and equal pulses in bilateral upper and lower extremities NEUROLOGICAL: Patient is currently sedated. She responds to pain with grimaces and retracts. Full neuro exam can not be completed while patient is sedated. LABORATORY DATA, IMAGING STUDIES, MICROBIOLOGY: Please see below. DVT prophylaxis ordered?: Mechanical ASSESSMENT AND PLAN:Patient is a 73 year old female who presented to the [facility] ER for altered mental status and suspected to have had a seizure or CVA. She has a history of PRES. 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 There was no acute infarctions. Patient was seen by Neurology with recommendations to treat patient for suspected seizure activity. The patient has received valproic acid, Keppra, and Dilantin. She has gained function of the right side of her body. The patient is currently intubated with mechanical ventilation secondary to respiratory failure. The patient has received an EEG which was unrevealing. She is currently hypotensive and s/p 1L bolus of NS. PROBLEMS: 1. Acute metabolic encephalopathy likely 2/2 seizure -Patient has a history of PRES and was recently hospitalized in [place]. Records have been reviewed and are available in patient chart. -Patient has been continued on Keppra 1000 mg BID -Continue Neuro checks and seizure precautions -Neurology consultation has been placed. Recommendations appreciated. -EEG has been completed and demonstrated nonspecific findings. -Nasogastric tube has been inserted for patients oral medications -Versed PRN agitation -Propofol has been stopped. 2. Acute hypoxemic respiratory failure requiring intubation and mechanical ventilation -Patient had developed left sided opacity and oxygen desaturations on 11/16/2018. Re-imaging demonstrated a left hemithorax. Patient was placed on chest PT for suspected mucous plugging. On 11/17/2018 patient developed apnea and respiratory failure and was subsequently intubated. There is an unclear et iology of her apnea. -Pulmonary consultation has been placed. Consultation is appreciated 3. Elevated Troponin likely 2/2 demand ischemia -Patients troponins have normalized. Her elevation was likely secondary to demand. 4. Lactic Acidosis -Patient has received fluids with improvement. 5. Hypotension -Patient has been hypotensive today. She has received 500ml NS bolus x2. She does remain hypotensive. Lactic acid is slightly elevated. She has no source of infection. She does have a history of parkinsons which could contribute to hypotension. -Will continue the patient on fluids. 6. Thrombocytopenia -No current evidence of bleeding or consumptive process -She is on Valproic acid outpatient which can cause thrombocytopenia 7. C. difficle colitis -On admission to the ER it was noted that the patient had diarrhea. She was seen in the ER preivously for a suspected cystitis. Her CT imaging of the abdomen demonstrated pancolitis. Patient has tested positive for C. diff -Patient is currently on PO vancomycin 8. Hyperglycemia -Possibly related to DM2 or stress hyperglycemia -Will continue to monitor 9. History of Parkinson's -Continue Sinemet via NG tube 10. Stress Ulcer Prophylaxis -Famotidine 11. DVT Prophylaxis -c/w TEDs/sequentials. VS, I&O, 24H, Fishbone Vital Signs/I&O Vital Signs Date Time Temp Pulse Resp B/P (MAP) Pulse Ox O2 Delivery O2 Flow Rate FiO2 11/19/18 16:00 40 11/19/18 15:45 82 104/49 (67) 100 11/19/18 15:04 14 11/19/18 12:00 97.0 11/17/18 17:21 Ventilator 11/16/18 16:00 3.0 I&O- Last 24 Hours up to 6 AM 11/19/18 06:00 Intake Total 4946 ml Output Total 515 ml Balance 4431 ml Laboratory Data 24H LABS Laboratory Tests 2 11/18/18 18:13: Phenytoin (Dilantin) Level 6.4L 11/18/18 18:15: Bedside Glucose (Misc Panel) 77L 11/19/18 00:09: Bedside Glucose (Misc Panel) 80L 11/19/18 05:20: Phenytoin (Dilantin) Level 9.7L, Nucleated Red Blood Cells % (auto) 0.0, Immature Platelet Fraction 2.6, Anion Gap 6L, Glomerular Filtration Rate > 60.0, Blood Urea Nitrogen 8, Creatinine 0.74, Sodium Level 140, Potassium Level 4.5, Chloride Level 111H, Carbon Dioxide Level 23, Calcium Level 7.2L 11/19/18 05:46: Blood Gas Bicarbonate Standard 20.3L, Arterial Blood pH 7.359, Arterial Blood Partial Pressure CO2 36.1, Arterial Blood Partial Pressure O2 91.1, Arterial Blood Total CO2 21.0L, Arterial Blood HCO3 19.9L, Arterial Blood Base Excess - 5.0L, Arterial Blood Oxygen Saturation 96.8 11/19/18 11:51: Bedside Glucose (Misc Panel) 119H 11/19/18 12:02: 11/19/18 13:09: Lactic Acid Level 2.4*H CBC/BMP Laboratory Tests 11/19/18 05:20 Red Blood Count 2.82 L, Mean Corpuscular Volume 95.0, Mean Corpuscular Hemoglobin 29.8, Mean Corpuscular Hemoglobin Concent 31.3 L, Red Cell Dis tribution Width 15.7 H, Calcium Level 7.2 L Microbiology Microbiology 11/19/18 Gram Stain - Final, Resulted 11/19/18 Sputum Culture, Resulted Pending 11/18/18 Gastrointestinal Tract Panel (PCR) - Final, Complete Clostridium Difficile A/B 11/16/18 Blood Culture - Preliminary, Resulted No Growth after 48 hours. All Specime... 11/16/18 Blood Culture - Preliminary, Resulted No Growth after 72 hours. All specime... AHMET HERNANDEZ DO Nov 19, 2018 16:45
[2018-11-19] MEDS: NS 1,000 ML IV SCH ×2 (17:39→23:52)
[2018-11-19 18:07] LABS: BLOOD UREA NITROGEN 8 MG/DL (7-18); CALCIUM LEVEL 7.3 MG/DL (8.8-10.2); CARBON DIOXIDE LEVEL 24 MEQ/L (21-32); CHLORIDE LEVEL 114 MEQ/L (98-107); GLOMERULAR FILTRATION RATE > 60.0 (>39); GLUCOSE, FASTING 145 MG/DL (70-100); POTASSIUM SERUM 4.6 MEQ/L (3.5-5.1); SODIUM LEVEL 143 MEQ/L (136-145)
[2018-11-20] VITALS (28 sets, daily range): BP systolic 80–119; BP diastolic 42–78; O2SAT 99
[2018-11-20] MEDS: PHENYTOIN 100 MG/2 ML VIAL (J1165) IV SCH ×3 (02:19→18:34)
[2018-11-20] MEDS: MIDAZOLAM INJ 2 MG/2 ML VIAL (J2250) IV PRN ×3 (02:20→05:36)
[2018-11-20] MEDS: PIPERACILLIN/TAZOBACTAM SOD 3.375 GM in D5W MINI-BAG PLUS 50 ML IV SCH ×4 (02:20→21:02)
[2018-11-20] MEDS: ALBUTEROL SULFATE 2.5 MG/0.5 ML INH NEB SOLN NEB SCH ×5 (03:26→20:59)
[2018-11-20 05:03] LABS: HEMATOCRIT 26.7 % (36.0-47.0); HEMOGLOBIN 8.4 g/dl (12.0-15.5); MEAN CORPUSCULAR HEMOGLOBIN 29.8 pg (27.0-33.0); MEAN CORPUSCULAR HGB CONC 31.5 g/dl (32.0-36.5); MEAN CORPUSCULAR VOLUME 94.7 fl (80.0-96.0); RED BLOOD COUNT 2.82 10^6/uL (4.00-5.40); WHITE BLOOD COUNT 6.8 10^3/uL (4.0-10.0)
[2018-11-20 05:06] LABS: PLATELET COUNT, AUTOMATED 70 10^3/uL (150-450)
[2018-11-20 05:37] LABS: BLOOD UREA NITROGEN 6 MG/DL (7-18); CALCIUM LEVEL 7.2 MG/DL (8.8-10.2); CARBON DIOXIDE LEVEL 24 MEQ/L (21-32); CHLORIDE LEVEL 112 MEQ/L (98-107); CREATININE FOR GFR 0.68 MG/DL (0.55-1.30); GLOMERULAR FILTRATION RATE > 60.0 (>39); GLUCOSE, FASTING 134 MG/DL (70-100); POTASSIUM SERUM 4.4 MEQ/L (3.5-5.1); SODIUM LEVEL 142 MEQ/L (136-145)
[2018-11-20] MEDS: VANCOMYCIN ORAL SOL 250MG/5ML ORAL SYRINGE PO SCH ×3 (05:50→18:34)
[2018-11-20] MEDS: HumaLOG INSULIN (NovoLOG) PER UNIT SC SCH ×3 (05:50→16:49)
[2018-11-20] MEDS: SODIUM CHLORIDE 0.9% INJ 10 ML SYR IV SCH ×2 (05:50→18:34)
[2018-11-20 06:09] LABS: ABG BASE EXCESS -2.2 (-2.0-2.0); ABG HCO3 22.3 MEQ/L (22.0-26.0); ABG O2 SATURATION 98.2 % (95.0-99.0); ABG PARTIAL PRESSURE CO2 36.8 mmHg (35.0-45.0); ABG STANDARD HCO3 22.6 MEQ/L (22.0-26.0); ABG TOTAL CO2 23.4 MEQ/L (23.0-31.0)
--- NOTE | 2018-11-20 06:29 | ECGEPIP ---
[facility] Test Date: 2018-11-19 Pat Name: MAIKEL ZURITA Department: Room: [place] [address] Gender: Female Digital Program Manager: ROBERT : 1945 Requested By: ABIMAEL PATRICIA Order Number: [id number] Reading MD: Melissa Azevedo Measurements Intervals [place] Rate: 78 P: 23 MI: 139 QRS: -20 QRSD: 86 T: 29 QT: 393 QTc: 450 Interpretive Statements SINUS RHYTHM LOW QRS VOLTAGE LAD POSSIBLE ANTERIOR MYOCARDIAL INFARCTION, OF INDETERMINATE AGE vs PRWP INFERIOR MYOCARDIAL INFARCTION, PROBABLY OLD PULM DIS PATTERN SIMILAR TO 11/17/18 Electronically Signed on 11-20-2018 6:28:28 EDT by Melissa Azevedo
--- NOTE | 2018-11-20 07:58 | REP ---
Portable chest x-ray: Single view. History: Intubated patient. Comparison study: November 19, 2089. Findings: Endotracheal tube remains in good position at the level of the transverse aorta. A nasogastric tube enters left upper quadrant of the abdomen. A right-sided PICC line is seen terminating in the expected location of the superior vena cava. Oxygen delivery tubing and monitoring electrodes are present. Hazy opacity persists in the bases consistent with small bilateral pleural effusions. Heart size is borderline. Pulmonary vasculature is not increased. No focal infiltrate is seen. Electronically Signed by Adriel Colón MD 11/20/2018 07:49 A
[2018-11-20] MEDS: NS 1,000 ML IV SCH ×2 (07:59→16:48)
--- NOTE | 2018-11-20 10:01 | REP ---
CT brain: 11/20/2018. Indication: Acute mental status change. Stroke. Comparison: MRI brain dated 11/16/2018. Technique: Unenhanced axial images of the brain were obtained from skull base to vertex. Findings: There are no areas of intracranial hemorrhage. No acute cortical infarction is detected. There are areas of encephalomalacia within the bilateral parieto-occipital regions as well as the superior anterior left frontal lobe. Diffuse volume loss is present. There are a few scattered areas of hypoattenuation within the white matter most consistent with sequelae of chronic small vessel disease. Impression: No acute intracranial process. Multiple chronic infarctions. Stable compared to earlier this month. 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 Electronically Signed by Zion Love DO 11/20/2018 09:53 A
--- NOTE | 2018-11-20 10:38 | CCN ---
DATE: 11/20/2018 START TIME: 0840 hours STOP TIME: 0915 hours I again attended Carmenza Lloyd here in the intensive care unit (ICU). She has been off her Propofol, using as needed sedation. Medication list has been reviewed regarding her anti epileptiform drugs, managed by neurology, the primary service. She has less spontaneous muscle twitching, and although she does not always follow commands, she does open her eyes to voice. Pupils do react. Maximum temperature (t-max) overnight 97.7, blood pressure 97 to 119 overnight. She had a brief episode yesterday with some mild hypotension that responded nicely to intravenous fluids. Heart rate 80s to 90s with a sinus mechanism. Respiratory rate 14 to 18 without accessory muscle use. Input and output midnight to midnight 6900 mL in with 1210 mL out. Most recent laboratories show a white blood cell count of 6.8, hemoglobin 8.4, platelet count 70,000. No differential today. Sodium 142, potassium 4.4, chloride 112, CO2 of 24, BUN 6, creatinine 0.68. Blood gas obtained on a SIMV of 8, tidal volume of 400, PEEP of 5, pressure support of 12, FiO2 of 40% has a pH of 7.40, pCO2 36.8, pO2 of 113, saturation 98.2%. Chest x-ray shows lines and tubes in good position. Still basilar effusions but no acute findings. No new culture results. Sputum from yesterday has WBCs but no organisms. She remains on Zosyn. PHYSICAL EXAMINATION: She is sedate but opens her eyes to voice. Pupils react. Trachea is in the midline. Lungs are clear anteriorly, decreased at the bases. Occasional rhonchus that clears with cough and deep suctioning. Cardiac exam is distant but regular. Peripheral pulses palpable. Trace edema. Abdomen is obese, soft with active bowel sounds. No convincing organomegaly or masses. Extremities are without cyanosis or clubbing. Neurologically, as outlined above. She does move all extremities spontaneously. The most pressing problems requiring my presence at the bedside are: 1. Respiratory failure requiring mechanical ventilatory support secondary to neurologic status. 2. Altered mental status. At this point, we will continue to push her from the ventilator standpoint as far as weaning, but I do not plan on extubating her until her mental status improves a little bit more and she is able to at least follow some commands. She is tolerating tube feeds at goal. Ulcer and deep vein thrombosis (DVT) prophylaxis per primary service. We will continue her Zosyn for her presumed aspiration. She has no fever and her white blood cell count is normal. At this point, we will proceed as outlined above. She remains critically ill. The exact etiology of her mental status changes remains somewhat unclear and I will defer to neurology in that situation. We will proceed as outlined above, and hopefully with some even mild improvement in her mental status we may be able to achieve endotracheal extubation. I left the bedside at 0915 hours. 35 minutes of critical care delivered at the bedside, not including procedures. YANET
[2018-11-20] MEDS: levETIRAcetam INJection 500 MG in D5W MINI-BAG PLUS 100 ML IV SCH ×4 (11:06→21:46)
[2018-11-20] MEDS: CHLORHEXIDINE GLUCONATE 0.12 % 15ML UDC (PERIDEX ORAL RINSE) MT SCH ×2 (11:07→21:02)
[2018-11-20] MEDS: FAMOTIDINE IV BAG 20 MG in IV 1 EA IV SCH ×2 (11:07→21:03)
[2018-11-20] MEDS: SINEMET 25-100 MG TAB NG SCH ×3 (11:07→21:02)
--- NOTE | 2018-11-20 14:11 | IPNPDOC ---
Date Seen The patient was seen on 11/20/18. Progress Note SUBJECTIVE: Patient was seen and examined this morning in the ICU. She currently remains on the ventilator. She has remained off of propofol however has been getting Versed PRN for agitation. She has gotten 7 doses overnight. She did have an increase in her diarrhea last night and a rectal tube was inserted. Today she continues to be responsive to voice. She does not follow commands appropriately. OBJECTIVE PHYSICAL EXAMINATION: VITAL SIGNS: Please see below. GENERAL: Patient is arousable. She remains critically ill. She is currently intubated with mechanical ventilation. HEENT: Atraumatic normocephalic. Eyes are nonicteric. Trachea is midline. Patient is intubated. NG tube in place CARDIOVASCULAR: Normal S1, S2. Regular rate and rhythm. No clicks rubs or murmurs RESPIRATORY: Anterior breath sounds are clear to auscultation bilaterally. She remains intubated ABDOMINAL: Soft, nondistended. Normoactive bowel sounds EXTREMITIES: No edema. Full and equal pulses in bilateral upper and lower extremities NEUROLOGICAL: Patient is currently arousable but not following commands. She grimaces and retracts to pain. She opens her eyes. Full neurological exam is unable to be completed as patient has received Versed LABORATORY DATA, IMAGING STUDIES, MICROBIOLOGY: Please see below. DVT prophylaxis ordered?: Mechanical DVT prophylaxis ASSESSMENT AND PLAN: Patient is a 73 year old female who presented to the [facility] ER for altered mental status and suspected to have had a seizure or CVA. She has a history of PRES. 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 There was no acute infarctions. Patient was seen by Neurology with recommendations to treat patient for suspected seizure activity. The patient has received valproic acid, Keppra, and Dilantin. She has gained function of the right side of her body. The patient is currently intubated with mechanical ventilation secondary to respiratory failure. The patient has received an EEG which was unrevealing. She has several episodes of hypotension last night which have responded to fluids. She remains normotensive today. PROBLEMS: 1. Acute metabolic encephalopathy likely 2/2 seizure -Patient has a history of PRES and was recently hospitalized in [place]. Records have been reviewed and are available in patient chart. -Patient has been continued on Keppra 1000 mg BID -Continue Neuro checks and seizure precautions -Neurology consultation has been placed. Recommendations appreciated. -EEG has been completed and demonstrated nonspecific findings. -Nasogastric tube has been inserted for patients oral medications -Versed and propofol has been stopped. Patient is currently intubated with mechanical ventilation. She will need a full sedation vacation to determine her neurological function and for consideration of possible extubation. 2. Acute hypoxemic respiratory failure requiring intubation and mechanical ventilation -Patient remains intubated with mechanical ventilation. She is currently on Zosyn for possible/empiric aspiration pneumonia coverage. She remains afebrile and without an elevated WBC. Will continue Zosyn for 7 days. -Currently day 06/11 of Zosyn -Pulmonary Medicine is has been consulted for management of the patients ventilator. Consultation is appreciated -Patient is currently off of Versed and Propofol. Once patient is more arousable and a baseline neurofunction can be assessed may consider possible extubation 3. C. difficle colitis -Patient has stool PCR positive for C. difficile. She has has increased diarrhea overnight. She is currently on oral vancomycin. -Will add Bacid 4. .Hypotension -Patient was hypotensive yesterday. She received IV fluid with increase in her MAP. She currently remains normotensive -Will continue to monitor 5. Thrombocytopenia -No current evidence of bleeding or consumptive process. -Patient is continued on Valproic acid which can cause thrombocytopenia -Appears low but stable. Will continue to monitor. 6. History of Parkinsons -Continue home Sinemet via NG tube 7. Stress Ulcer Prophylaxis -Continue famotidine 8. DVT prophylaxis -c/w TEDS/sequentials DISPOSITION: Patient currently remains critically ill with an overall guarded prognosis I saw and evaluated the patient. I agree with the findings and plan of care as documented in the above note VS, I&O, 24H, Fishbone Vital Signs/I&O Vital Signs Date Time Temp Pulse Resp B/P (MAP) Pulse Ox O2 Delivery O2 Flow Rate FiO2 11/20/18 12:00 40 11/20/18 08:38 93 13 99 11/20/18 08:09 117/58 (77) 11/20/18 08:02 96.8 11/20/18 03:26 Ventilator 11/16/18 16:00 3.0 I&O- Last 24 Hours up to 6 AM 11/20/18 06:00 Intake Total 6773 ml Output Total 1520 ml Balance 5253 ml Laboratory Data 24H LABS Laboratory Tests 2 11/19/18 17:24: Anion Gap 5L, Glomerular Filtration Rate > 60.0, Calcium Level 7.3L 11/19/18 17:25: Lactic Acid Followup at 4 Hours 2.0 11/19/18 23:50: Bedside Glucose (Misc Panel) 70L 11/20/18 04:54: Anion Gap 6L, Glomerular Filtration Rate > 60.0, Calcium Level 7.2L, Nucleated Red Blood Cells % (auto) 0.0 11/20/18 05:56: Blood Gas Bicarbonate Standard 22.6, Arterial Blood pH 7.400, Arterial Blood Partial Pressure CO2 36.8, Arterial Blood Partial Pressure O2 113.0H, Arterial Blood Total CO2 23.4, Arterial Blood HCO3 22.3, Arterial Blood Base Excess - 2.2L, Arterial Blood Oxygen Saturation 98.2 11/20/18 11:26: Bedside Glucose (Misc Panel) 70L CBC/BMP Laboratory Tests 11/19/18 17:24 11/20/18 04:54 Microbiology Microbiology 11/19/18 Gram Stain - Final, Resulted 11/19/18 Sputum Culture, Resulted Pending 11/18/18 Gastrointestinal Tract Panel (PCR) - Final, Complete Clostridium Difficile A/B 11/16/18 Blood Culture - Preliminary, Resulted No Growth after 72 hours. All specime... 11/16/18 Blood Culture - Preliminary, Resulted No Growth after 72 hours. All specime... AHMET HERNANDEZ DO Nov 20, 2018 14:11 NORY HICKEY MD Nov 21, 2018 13:32
[2018-11-20] MEDS: ASPIRIN 325 MG TAB NG SCH (16:48)
[2018-11-20] MEDS ORDERED: MIDAZOLAM INJ 2 MG/2 ML VIAL (J2250) As Ordered ONE (23:01)
[2018-11-21] VITALS (26 sets, daily range): BP systolic 80–124; BP diastolic 39–59
[2018-11-21] MEDS: MIDAZOLAM INJ 2 MG/2 ML VIAL (J2250) IV PRN ×5 (00:45→05:44)
[2018-11-21] MEDS: VANCOMYCIN ORAL SOL 250MG/5ML ORAL SYRINGE PO SCH ×4 (00:55→18:10)
[2018-11-21] MEDS: NS 1,000 ML IV SCH ×4 (01:20→10:45)
[2018-11-21] MEDS: HumaLOG INSULIN (NovoLOG) PER UNIT SC SCH ×4 (01:21→18:00)
[2018-11-21] MEDS: ALBUTEROL SULFATE 2.5 MG/0.5 ML INH NEB SOLN NEB SCH ×7 (01:33→23:49)
[2018-11-21] MEDS: PHENYTOIN 100 MG/2 ML VIAL (J1165) IV SCH ×3 (01:48→18:10)
[2018-11-21] MEDS: PIPERACILLIN/TAZOBACTAM SOD 3.375 GM in D5W MINI-BAG PLUS 50 ML IV SCH ×4 (03:50→21:14)
[2018-11-21 05:45] LABS: HEMATOCRIT 23.8 % (36.0-47.0); HEMOGLOBIN 7.3 g/dl (12.0-15.5); MEAN CORPUSCULAR HGB CONC 30.7 g/dl (32.0-36.5); MEAN CORPUSCULAR VOLUME 94.4 fl (80.0-96.0); PLATELET COUNT, AUTOMATED 93 10^3/uL (150-450); RED BLOOD COUNT 2.52 10^6/uL (4.00-5.40); WHITE BLOOD COUNT 6.1 10^3/uL (4.0-10.0)
[2018-11-21] MEDS: SODIUM CHLORIDE 0.9% INJ 10 ML SYR IV SCH ×2 (06:06→18:11)
[2018-11-21 06:08] LABS: ABG BASE EXCESS -0.4 (-2.0-2.0); ABG HCO3 24.1 MEQ/L (22.0-26.0); ABG O2 SATURATION 97.3 % (95.0-99.0); ABG PARTIAL PRESSURE CO2 38.2 mmHg (35.0-45.0); ABG PARTIAL PRESSURE O2 93.3 mmHg (75.0-100.0); ABG STANDARD HCO3 24.2 MEQ/L (22.0-26.0); ABG TOTAL CO2 25.2 MEQ/L (23.0-31.0); ABG pH (ARTERIAL) 7.417 UNITS (7.350-7.450)
[2018-11-21 06:18] LABS: BLOOD UREA NITROGEN 7 MG/DL (7-18); CALCIUM LEVEL 7.4 MG/DL (8.8-10.2); CARBON DIOXIDE LEVEL 28 MEQ/L (21-32); CHLORIDE LEVEL 113 MEQ/L (98-107); CREATININE FOR GFR 0.68 MG/DL (0.55-1.30); GLOMERULAR FILTRATION RATE > 60.0 (>39); GLUCOSE, FASTING 100 MG/DL (70-100); POTASSIUM SERUM 4.1 MEQ/L (3.5-5.1); SODIUM LEVEL 144 MEQ/L (136-145)
[2018-11-21] MEDS: levETIRAcetam INJection 500 MG in D5W MINI-BAG PLUS 100 ML IV SCH ×4 (08:09→22:12)
[2018-11-21] MEDS: FAMOTIDINE IV BAG 20 MG in IV 1 EA IV SCH ×2 (08:09→21:14)
[2018-11-21] MEDS: SINEMET 25-100 MG TAB NG SCH ×3 (08:10→21:13)
[2018-11-21] MEDS: CHLORHEXIDINE GLUCONATE 0.12 % 15ML UDC (PERIDEX ORAL RINSE) MT SCH (08:10)
[2018-11-21] MEDS: ASPIRIN 325 MG TAB NG SCH (08:21)
--- NOTE | 2018-11-21 08:37 | REP ---
Single view chest: Indication: Intubation. Comparison: Yesterday. Findings: The appearance of the lungs and heart are unchanged. Lines and tubes are similarly positioned. No significant change. Impression: Stable examination compared to the previous day. No acute changes. Electronically Signed by Zion Love DO 11/21/2018 08:29 A
--- NOTE | 2018-11-21 09:48 | CCN ---
DATE OF SERVICE: 11/21/2018 START TIME: 849. STOP TIME: 927. I again attended Carmenza Lloyd. She has required minimal sedation. She is intermittently agitated but is much more alert. She intermittently will follow some simple commands. No significant myoclonic- or seizure-like activity since yesterday. She is breathing spontaneously above the ventilator and appears quite comfortable in that regard. Maximum temperature (Tmax) overnight 97.9, blood pressure 93-117 systolic, heart rate generally in the 80s and 90s with a sinus mechanism. Occasional ectopy. Intake and output (I and O) the last 24 hours, 5840 mL in with 2785 mL out. Most recent laboratories show a white blood cell count of 6.1, hemoglobin 7.3, platelet count 93,000. No differential today. Sodium 144, potassium 4.1, chloride 113, CO2 28, BUN 7, creatinine 0.68. Blood gas done on SIMV of 4, tidal volume 400, PEEP of 5, pressure support of 12, FiO2 of 40%, and has a pH of 7.417, pCO2 of 38.2, pO2 of 93.3, with a saturation of 97.3%. Chest x-ray shows lines and tubes in good position. Still some basilar small effusions. No acute findings. No new culture data available. On examination, she is easily arousable. She does occasionally appear to track motions. Occasionally will follow simple command. She moves all extremities. Pupils react. Sclerae clear. Trachea is in the midline. Chest is fairly clear anteriorly with the occasional rhonchus that clears with suctioning. Decreased breath sound intensity at the bases with some faint early inspiratory crackles dependently. Cardiac examination is generally regular with occasional ectopy. Peripheral pulses palpable. Trace edema. Abdomen is obese, soft, with active bowel sounds. No convincing organomegaly or masses. Extremities are without cyanosis or clubbing. Neurologically, she does move all extremities as outlined above. The most pressing problems requiring my presence at the bedside: 1. Respiratory failure secondary to altered mental status. 2. Atelectasis left chest, resolved. 3. Small bilateral pleural effusions. 4. Clostridium difficile. 5. Seizures versus myoclonic activity versus unknown etiology. At this point, she has made significant strides regarding her mental status with changes in her antiepileptic drugs. I believe it is safe to proceed with extubation, as she is requiring minimal ventilatory support and has a stable chest x-ray and is quite comfortable. She was, therefore, extubated without difficulty. No stridor. Saturation 98% on 4% aerosol face mask. She is comfortable. Respiratory rate is 16-18. She does respond somewhat to questioning, but her responses are unintelligible. At this point, we will monitor her respiratory status, but she appears to have successfully tolerated extubation. Nutrition, deep venous thrombosis (DVT) and ulcer prophylaxis will be per the primary service. I have no qualms with continuing her Zosyn for now. I left the bedside at 0928 hours. 38 minutes of critical care delivered at the bedside, not including procedures.
[2018-11-21 15:24] LABS: APPEARANCE, URINE HAZY (CLEAR); BACTERIA, URINE AUTO 1+ (NEGATIVE); BILIRUBIN, URINE AUTO NEGATIVE (NEGATIVE); BLOOD, URINE BLOOD 1+ (NEGATIVE); COLOR, URINE STRAW (YELLOW); GLUCOSE, URINE (UA) AUTO NEGATIVE (NEGATIVE); KETONE, URINE AUTO NEGATIVE (NEGATIVE); LEUKOCYTE ESTERASE, URINE AUTO 1+ (NEGATIVE); MUCUS, URINE SMALL (NEGATIVE); NITRITE, URINE AUTO NEGATIVE (NEGATIVE); PROTEIN, URINE AUTO NEGATIVE (NEGATIVE); RBC, URINE AUTO 5 /HPF (0-3); SPECIFIC GRAVITY URINE AUTO 1.008 (1.002-1.035); SQUAMOUS EPITHELIAL CELL UR AU 0 /HPF (0-6); UROBILINOGEN, URINE AUTO 0.2 mg/dL (0.0-2.0); WBC, URINE AUTO 22 /HPF (0-3)
--- NOTE | 2018-11-21 18:14 | IPNPDOC ---
Date Seen The patient was seen on 11/21/18. Progress Note SUBJECTIVE: Patient was seen, examined this morning. She remains in the ICU. She has been extubated this morning. She remains on minimal sedation. On evaluation, the patient does remain altered. She does not follow commands. However, she does open her eyes spontaneously.She continues to respond to pain. There were no adverse events reported overnight. She has remained normotensive however, does become slightly hypotensive at times. She was continued on IV fluids however, her fluids will be stopped today. OBJECTIVE PHYSICAL EXAMINATION: VITAL SIGNS: Please see below. GENERAL: Patient is arousable. She does not appear in acute distress. She does not follow commands. She is status post extubation HEENT: Atraumatic, normocephalic. Eyes are nonicteric. Trachea is midline. CARDIOVASCULAR: Normal S1, S2. Regular rate and rhythm. No clicks rubs or murmurs. No JVD RESPIRATORY: There is continued scattered wheezing through out. Symmetric chest expansion. No accessory muscle use ABDOMINAL: Soft, nondistended. Bates catheter in place. Rectal tube in place. EXTREMITIES: No edema in the bilateral lower extremities. Pitting sacral edema present. Edema of the hand bilaterally. NEUROLOGICAL: Patient is arousable. She opens her eyes but she does not make purposeful movements. She spontaneously moves all 4 limbs. She responds to pain. LABORATORY DATA, IMAGING STUDIES, MICROBIOLOGY: Please see below. DVT prophylaxis ordered?: Mechanical ASSESSMENT AND PLAN: ASSESSMENT AND PLAN: Patient is a 73 year old female who presented to the [facility] ER for altered mental status and suspected to have had a seizure or CVA. She has a history of PRES. 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 There was no acute infarctions. Patient was seen by Neurology with recommendations to treat patient for suspected seizure activity. The patient has received valproic acid, Keppra, and Dilantin. She has gained function of the right side of her body. The patient has received an EEG which was unrevealing. Patient was intubated with mechanical ventilation due to respiratory failure. She has been extubated today. Patient has not shown purposeful movements. PROBLEMS: 1. Acute metabolic encephalopathy likely 2/2 seizure -Patient has a history of PRES and was recently hospitalized in [place]. Records have been reviewed and are available in patient chart. -Patient has been continued on Keppra 1000 mg BID -Continue Neuro checks and seizure precautions -Neurology consultation has been placed. Recommendations appreciated. -EEG has been completed and demonstrated nonspecific findings. -Nasogastric tube has been inserted for patients oral medications -Repeat CT scan of the head was negative -Patient is currently nonverbal. She is not making purposeful movements. She has been extubated today. Will continue to reassess. 2. Acute hypoxemic respiratory failure requiring intubation and mechanical ventilation -Patient has been extubated today. -Concern for possible aspiration pneumonia. Patient is Currently day 07/12 of Zosyn 3. Tube Feeding -Patient currently has a nasogastric tube in place and is receiving tube feeds -tube feeding will be continued with recommendations per Dietary. -Will stop IV fluids. Patient will receive Free water per recommendations by Dietary 4. C. difficle colitis -Patient has stool PCR positive for C. difficile. She has has increased diarrhea overnight. She is currently on oral vancomycin. -Continue Bacid 5 Hypotension -Patient has remained normotensive. Will continue to monitor 5. Thrombocytopenia -No current evidence of bleeding or consumptive process. -Patient is continued on Valproic acid which can cause thrombocytopenia -Platelet levels have increased from previously. Will continue to monitor 6. History of Parkinsons -Continue home Sinemet via NG tube 7. Stress Ulcer Prophylaxis -Continue famotidine 8. DVT prophylaxis -c/w TEDS/sequentials DISPOSITION: Patient remains with an overall poor prognosis. She has been extubated. I saw and evaluated the patient. I agree with the findings and plan of care as documented in the above note VS, I&O, 24H, Fishbone Vital Signs/I&O Vital Signs Date Time Temp Pulse Resp B/P (MAP) Pulse Ox O2 Delivery O2 Flow Rate FiO2 11/21/18 16:00 2.0 11/21/18 15:34 98.2 11/21/18 15:02 85 18 103/49 (67) 91 Nasal Cannula 11/21/18 13:02 35 I&O- Last 24 Hours up to 6 AM 11/21/18 06:00 Intake Total 5820 ml Output Total 3060 ml Balance 2760 ml Laboratory Data 24H LABS Laboratory Tests 2 11/21/18 00:53: Bedside Glucose (Misc Panel) 115H 11/21/18 05:25: Nucleated Red Blood Cells % (auto) 0.0, Immature Platelet Fraction 2.9, Blood Gas Bicarbonate Standard 24.2, Arterial Blood pH 7.417, Arterial Blood Partial Pressure CO2 38.2, Arterial Blood Partial Pressure O2 93.3, Arterial Blood Total CO2 25.2, Arterial Blood HCO3 24.1, Arterial Blood Base Excess -0.4, Arterial Blood Oxygen Saturation 97.3, Anion Gap 3L, Glomerular Filtration Rate > 60.0, Calcium Level 7.4L 11/21/18 06:01: Bedside Glucose (Misc Panel) 82L 11/21/18 13:00: Bedside Glucose (Misc Panel) 88 11/21/18 15:06: Urine Color STRAW, Urine Appearance HAZY, Urine pH 5.0, Urine Specific [place] 1.008, Urine Protein NEGATIVE, Urine Glucose (Auto)(UA) NEGATIVE, Urine Ketones (Auto) NEGATIVE, Urine Blood 1+H, Urine Nitrite NEGATIVE, Urine Bilirubin NEGATIVE, Urine Urobilinogen 0.2, Urine Leukocyte Esterase (Auto) 1+H, Urine WBC (Auto) 22H, Urine RBC (Auto) 5H, Urine Hyaline Casts (Auto) 0, Urine Bacteria (Auto) 1+H, Urine Squamous Epithelial Cells 0, Urine Mucus (Auto) SMALL, Urine Sperm (Auto) CBC/BMP Laboratory Tests 11/21/18 05:25 Microbiology Microbiology 11/21/18 Urine Culture, Received Pending 11/19/18 Gram Stain - Final, Complete 11/19/18 Sputum Culture - Final, Complete 11/18/18 Gastrointestinal Tract Panel (PCR) - Final, Complete Clostridium Difficile A/B 11/16/18 Blood Culture - Final, Complete NO GROWTH AFTER 5 DAYS 11/16/18 Blood Culture - Final, Complete NO GROWTH AFTER 5 DAYS AHMET HERNANDEZ DO Nov 21, 2018 18:14 NORY HICKEY MD Nov 22, 2018 13:11
[2018-11-22] VITALS (24 sets, daily range): BP systolic 95–141; BP diastolic 47–81; O2SAT 96
[2018-11-22] MEDS: VANCOMYCIN ORAL SOL 250MG/5ML ORAL SYRINGE PO SCH ×4 (00:17→18:40)
[2018-11-22] MEDS: HumaLOG INSULIN (NovoLOG) PER UNIT SC SCH ×4 (00:18→18:00)
[2018-11-22] MEDS ORDERED: diphenhydrAMINE INJ 50MG/ML VIAL (J1200) IV ONE (02:00)
[2018-11-22] MEDS: PHENYTOIN 100 MG/2 ML VIAL (J1165) IV SCH ×3 (03:04→20:16)
[2018-11-22] MEDS: PIPERACILLIN/TAZOBACTAM SOD 3.375 GM in D5W MINI-BAG PLUS 50 ML IV SCH ×2 (03:04→08:41)
[2018-11-22] MEDS: ALBUTEROL SULFATE 2.5 MG/0.5 ML INH NEB SOLN NEB SCH ×6 (04:04→23:31)
[2018-11-22] MEDS: SODIUM CHLORIDE 0.9% INJ 10 ML SYR IV SCH ×2 (06:13→18:40)
[2018-11-22 06:14] LABS: HEMATOCRIT 23.7 % (36.0-47.0); HEMOGLOBIN 7.5 g/dl (12.0-15.5); MEAN CORPUSCULAR HEMOGLOBIN 29.8 pg (27.0-33.0); MEAN CORPUSCULAR HGB CONC 31.6 g/dl (32.0-36.5); PLATELET COUNT, AUTOMATED 133 10^3/uL (150-450); RED BLOOD COUNT 2.52 10^6/uL (4.00-5.40); WHITE BLOOD COUNT 6.6 10^3/uL (4.0-10.0)
[2018-11-22 06:44] LABS: BLOOD UREA NITROGEN 8 MG/DL (7-18); CALCIUM LEVEL 7.6 MG/DL (8.8-10.2); CARBON DIOXIDE LEVEL 30 MEQ/L (21-32); CHLORIDE LEVEL 111 MEQ/L (98-107); CREATININE FOR GFR 0.71 MG/DL (0.55-1.30); GLOMERULAR FILTRATION RATE > 60.0 (>39); GLUCOSE, FASTING 110 MG/DL (70-100); PHENYTOIN (DILANTIN) 16.1 UG/ML (10.0-20.0); POTASSIUM SERUM 3.9 MEQ/L (3.5-5.1); SODIUM LEVEL 144 MEQ/L (136-145)
[2018-11-22] MEDS: FAMOTIDINE IV BAG 20 MG in IV 1 EA IV SCH ×2 (08:41→22:04)
[2018-11-22] MEDS: ASPIRIN 325 MG TAB NG SCH (08:41)
[2018-11-22] MEDS: levETIRAcetam INJection 500 MG in D5W MINI-BAG PLUS 100 ML IV SCH ×2 (08:41→09:07)
[2018-11-22] MEDS: SINEMET 25-100 MG TAB NG SCH ×3 (08:42→20:15)
[2018-11-22 10:25] LABS: PERCENT SATURATION 27.4 % (13.2-45.0)
[2018-11-22 10:33] LABS: FOLATE 4.9 NG/ML (>5.4)
--- NOTE | 2018-11-22 15:26 | IPNPDOC ---
Date Seen The patient was seen on 11/22/18. Progress Note SUBJECTIVE: Patient was seen and examined this morning. She was extubated yesterday. She is continues to be arousable. She is not following commands or making purposeful movements. She does speak however, she does not respond appropriately. The patient repeats her name "Francia". There have been no adverse events reported overnight. The patient has been continued on nasal canula. OBJECTIVE PHYSICAL EXAMINATION: VITAL SIGNS: Please see below. GENERAL: Awake, alert. She currently speaks but is not noncommunicative. She does not appear to be in acute distress. She is lying in bed. Opening eyes spontaneously. She does not appear agitated HEENT: Atraumatic, normocephalic. Eyes are nonicteric. Trachea is midline. CARDIOVASCULAR: Normal S1, S2. Regular rate and rhythm. No clicks rubs or m urmurs. RESPIRATORY: Clear vesicular breath sounds bilaterally. Significant improvement in aeration from previous exam. Symmetric chest rise. No wheezes, rhonchi, or rales ABDOMINAL: Obese, soft, nondistended. Rectal tube in place. EXTREMITIES: Trace edema in bilateral lowerr extremities. Bilateral upper extremities/hands appear slightly edematous. Full and equal pulses in bilateral upper and lower extremities NEUROLOGICAL: Patient is awake. She continues to respond inappropriately. She is speaking today although it is noncommunicative. She continues to spontaneously move all her limbs LABORATORY DATA, IMAGING STUDIES, MICROBIOLOGY: Please see below. DVT prophylaxis ordered?: Mechanical ASSESSMENT AND PLAN: Patient is a 73 year old female who presented to the [facility] ER for altered mental status and suspected to have had a seizure or CVA. She has a history of PRES. 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 There was no acute infarctions. Patient was seen by Neurology with recommendations to treat patient for suspected seizure activity. The patient has received valproic acid, Keppra, and Dilantin. She has gained function of the right side of her body. The patient has received an EEG which was unrevealing. Patient was intubated with mechanical ventilation due to respiratory failure. She has been extubated. Patient continues to not show purposeful movements. Today she has spoken although her words are repetitive. She continues to not follow commands. She was anemic today and has been consented via her health care proxy for transfusion of 2 units PRBCs. Patient will be downgraded to PCU today PROBLEMS: 1. Acute metabolic encephalopathy likely 2/2 seizure -Patient has a history of PRES and was recently hospitalized in [place]. Records have been reviewed and are available in patient chart. -Patient has been continued on Keppra 1000 mg BID -Continue Neuro checks and seizure precautions -Neurology consultation has been placed. Recommendations appreciated. -EEG has been completed and demonstrated nonspecific findings. A repeat EEG has been ordered. This is currently pending -Nasogastric tube has been inserted for patients oral medications. Patient is currently receiving tube feeds per dietary recommendations -Repeat CT scan of the head was negative 2. Acute hypoxemic respiratory failure requiring intubation and mechanical ventilation -Patient has been extubated today. -Patient has completed 7 days of Zosyn for suspected aspiration pneumonia. Zosyn has been discontinued 3. Tube Feeding -Patient currently has a nasogastric tube in place and is receiving tube feeds -tube feeding will be continued with recommendations per Dietary. -Patient will receive Free water per recommendations by Dietary 4. C. difficle colitis -Patient has stool PCR positive for C. difficile. She has has increased diarrhea overnight. She is currently on oral vancomycin. She was on Zosyn for suspected aspiration pneumonia. She continues to have diarrhea. She has a rectal tube in place. Will continue Oral Vancomycin for 10 days. Currently Day 02/14 -Continue Bacid 5. Anemia -Patient has been trending down in hemoglobin. She has been thrombocytopenic however she has improved in those regards. Suspect for anemia secondary to di lution however may not fully explain her anemia -Anemia work up including Iron studies, Reticulocyte count, Nucleated RBCs, and Peripheral Smear pending -Iron studies suggest a anemia of chronic disease. -Given patients anemia her health care proxy has been contacted and has consented to transfusion. She will receive 2 units PRBCs today -Will continue to monitor H&H with transfusion as needed -FOBT has been negative. 6 Hypotension -Patient has remained normotensive. Will continue to monitor 7. Thrombocytopenia -No current evidence of bleeding or consumptive process. -Patient is continued on Valproic acid which can cause thrombocytopenia -Platelet levels have increased from previously. Will continue to monitor 6. History of Parkinsons -Continue home Sinemet via NG tube 7. Stress Ulcer Prophylaxis -Continue famotidine 8. DVT prophylaxis -c/w TEDS/sequentials DISPOSITION: Patient has been extubated and has remained stable. She has shown slight improvement. Patient will be downgraded from ICU to PCU. Her overall long-term prognosis remains guarded I saw and evaluated the patient. I agree with the findings and plan of care as documented in the above note VS, I&O, 24H, Fishbone Vital Signs/I&O Vital Signs Date Time Temp Pulse Resp B/P (MAP) Pulse Ox O2 Delivery O2 Flow Rate FiO2 11/22/18 12:00 98.9 81 18 106/66 (79) 93 Nasal Cannula 2.0 11/21/18 13:02 35 I&O- Last 24 Hours up to 6 AM 11/22/18 06:00 Intake Total 3680 ml Output Total 3780 ml Balance -100 ml Laboratory Data 24H LABS Laboratory Tests 2 11/21/18 15:06: Urine Color STRAW, Urine Appearance HAZY, Urine pH 5.0, Urine Specific [place] 1.008, Urine Protein NEGATIVE, Urine Glucose (Auto)(UA) NEGATIVE, Urine Ketones (Auto) NEGATIVE, Urine Blood 1+H, Urine Nitrite NEGATIVE, Urine Bilirubin NEG ATIVE, Urine Urobilinogen 0.2, Urine Leukocyte Esterase (Auto) 1+H, Urine WBC (Auto) 22H, Urine RBC (Auto) 5H, Urine Hyaline Casts (Auto) 0, Urine Bacteria (Auto) 1+H, Urine Squamous Epithelial Cells 0, Urine Mucus (Auto) SMALL, Urine Sperm (Auto) 11/21/18 18:30: Bedside Glucose (Misc Panel) 112H 11/22/18 00:05: Bedside Glucose (Misc Panel) 137H 11/22/18 05:49: Reticulocyte # (auto) 43.5, Nucleated Red Blood Cells % (auto) 0.0, Differential Slide Review Report, Peripheral Blood Smear Path Consult PERIPHERAL SMEAR, Percent Reticulocyte Count 1.7H, Reticulocyte Hemoglobin Equivalent 29.9, Anion Gap 3L, Glomerular Filtration Rate > 60.0, Calcium Level 7.6L, Phenytoin (Dilantin) Level 16.1 11/22/18 09:23: Iron Level 45L, Total Iron Binding Capacity 164L, Transferrin % Saturation 27.4, Ferritin 462H, Vitamin B12 Level 524, Folate 4.9L CBC/BMP Laboratory Tests 11/22/18 05:49 Microbiology Microbiology 11/22/18 Stool Occult Blood (YURIY) - Final, Complete 11/21/18 Urine Culture, Received Pending 11/19/18 Gram Stain - Final, Complete 11/19/18 Sputum Culture - Final, Complete 11/18/18 Gastrointestinal Tract Panel (PCR) - Final, Complete Clostridium Difficile A/B 11/16/18 Blood Culture - Final, Complete NO GROWTH AFTER 5 DAYS 11/16/18 Blood Culture - Final, Complete NO GROWTH AFTER 5 DAYS AHMET HERNANDEZ DO Nov 22, 2018 14:33 NORY HICKEY MD Nov 24, 2018 14:41
[2018-11-22] MEDS: levETIRAcetam INJection 750 MG in D5W 100 ML IV SCH (20:16)
[2018-11-23] MEDS: HumaLOG INSULIN (NovoLOG) PER UNIT SC SCH ×4 (00:26→18:00)
[2018-11-23] MEDS: VANCOMYCIN ORAL SOL 250MG/5ML ORAL SYRINGE PO SCH ×4 (00:27→18:06)
[2018-11-23] MEDS: ALBUTEROL SULFATE 2.5 MG/0.5 ML INH NEB SOLN NEB SCH ×5 (04:39→20:00)
[2018-11-23] MEDS: SODIUM CHLORIDE 0.9% INJ 10 ML SYR IV SCH ×2 (06:12→18:06)
[2018-11-23 06:30] VITALS: BP 138/59
[2018-11-23 06:51] LABS: HEMATOCRIT 29.5 % (36.0-47.0); MEAN CORPUSCULAR HEMOGLOBIN 29.6 pg (27.0-33.0); MEAN CORPUSCULAR HGB CONC 32.9 g/dl (32.0-36.5); MEAN CORPUSCULAR VOLUME 89.9 fl (80.0-96.0); PLATELET COUNT, AUTOMATED 164 10^3/uL (150-450); RED BLOOD COUNT 3.28 10^6/uL (4.00-5.40); WHITE BLOOD COUNT 7.4 10^3/uL (4.0-10.0)
[2018-11-23 07:10] LABS: HEMOGLOBIN 9.7 g/dl (12.0-15.5)
[2018-11-23 07:20] LABS: BLOOD UREA NITROGEN 9 MG/DL (7-18); CARBON DIOXIDE LEVEL 29 MEQ/L (21-32); CHLORIDE LEVEL 108 MEQ/L (98-107); GLOMERULAR FILTRATION RATE > 60.0 (>39); GLUCOSE, FASTING 127 MG/DL (70-100); POTASSIUM SERUM 4.1 MEQ/L (3.5-5.1); SODIUM LEVEL 142 MEQ/L (136-145)
[2018-11-23] MEDS: levETIRAcetam INJection 750 MG in D5W 100 ML IV SCH ×2 (09:28→22:25)
[2018-11-23] MEDS: PHENYTOIN 100 MG/2 ML VIAL (J1165) IV SCH ×2 (09:28→21:07)
[2018-11-23] MEDS: SINEMET 25-100 MG TAB NG SCH ×3 (09:29→21:07)
[2018-11-23] MEDS: ASPIRIN 325 MG TAB NG SCH (09:29)
[2018-11-23] MEDS: FAMOTIDINE IV BAG 20 MG in IV 1 EA IV SCH ×2 (10:12→21:42)
--- NOTE | 2018-11-23 14:40 | IPNPDOC ---
Date Seen The patient was seen on 11/23/18. Progress Note SUBJECTIVE: Patient was seen and examined this morning. There have been no adverse events reported overnight. She is more arousable today and does answer questions appropriately at times. She often perseverates. She is not following commands appropriately however does move all limbs spontaneously. OBJECTIVE PHYSICAL EXAMINATION: VITAL SIGNS: Please see below. GENERAL: Awake, alert. She is oriented to person. She is able to answer questions regarding her name and date. She perseverates. She does not appear to be in acute distress. She is lying in bed. Opening eyes spontaneously. She does not appear agitated HEENT: Atraumatic, normocephalic. Eyes are nonicteric. Trachea is midline. Nasogastric tube is in place CARDIOVASCULAR: Normal S1, S2. Regular rate and rhythm. No clicks rubs or murmurs. RESPIRATORY: Clear vesicular breath sounds bilaterally. Symmetric chest rise. No wheezes, rhonchi, or rales ABDOMINAL: Obese, soft, nondistended. Rectal tube in place. EXTREMITIES: Trace edema in bilateral lower extremities. Bilateral upper extremities/hands appear slightly edematous. Full and equal pulses in bilateral upper and lower extremities NEUROLOGICAL: Patient is awake. She does respond to questions. She is oriented to person. She is able to recite her date. She does not follow commands appropriately. Patient has dementia at her baseline. LABORATORY DATA, IMAGING STUDIES, MICROBIOLOGY: Please see below. DVT prophylaxis ordered?: Mechanical ASSESSMENT AND PLAN: Patient is a 73 year old female who presented to the [facility] ER for altered mental status and suspected to have had a seizure or CVA. She has a history of PRES. 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 There was no acute infarctions. Patient was seen by Neurology with recommendations to treat patient for suspected seizure activity. The patient has received valproic acid, Keppra, and Dilantin. She has gained function of the right side of her body. The patient has received an EEG which was unrevealing. Patient was intubated with mechanical ventilation due to respiratory failure. She has been extubated. She does respond to question today although she does not follow commands or make purposeful movements. She was transfused 2 units of blood yesterday. PROBLEMS: 1. Acute metabolic encephalopathy likely 2/2 seizure -Patient has a history of PRES and was recently hospitalized in [place]. Records have been reviewed and are available in patient chart. -Patient has been continued on Keppra 1000 mg BID -Continue Neuro checks and seizure precautions -Neurology consultation has been placed. Recommendations appreciated. -EEG has been completed and demonstrated nonspecific findings. A repeat EEG has been ordered. This is currently pending -Nasogastric tube has been inserted for patients oral medications. Patient is currently receiving tube feeds per dietary recommendations -Repeat CT scan of the head was negative -Patient has shown improvements in mentation. She is able to say her name and date of . At her baseline she has dementia. Her normal degree of mental function is unknown. When her sister is visiting this can be better elicited. -Patient will need to work with physical therapy 2. Right upper extremity swelling -Patient had reported right upper extremity arm swelling reported per nursing. 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 -Upper extremity doppler ultrasound has been ordered to assess for possible right upper extremity thrombosis 3. Acute hypoxemic respiratory failure requiring intubation and mechanical ventilation -Patient has been extubated today. -Patient has completed 7 days of Zosyn for suspected aspiration pneumonia. Zosyn has been discontinued 4. Tube Feeding -Patient currently has a nasogastric tube in place and is receiving tube feeds -tube feeding will be continued with recommendations per Dietary. -Patient will receive Free water per recommendations by Dietary -Once patient is close to her baseline NG tube will be removed and patient will be started on a diet -"Speach" therapy has been ordered 5. C. difficle colitis -Patient has stool PCR positive for C. difficile. She has has increased diarrhea overnight. She is currently on oral vancomycin. She was on Zosyn for suspected aspiration pneumonia. She continues to have diarrhea. She has a rectal tube in place. Will continue Oral Vancomycin for 10 days. Currently Day 03/17 -Continue Bacid 6. Anemia -Patient has been trending down in hemoglobin. She has been thrombocytopenic however she has improved in those regards. Suspect for anemia secondary to dilution however may not fully explain her anemia -Anemia work up including Iron studies, Reticulocyte count, Nucleated RBCs, and Peripheral Smear pending -Iron studies suggest a anemia of chronic disease. -Patient was transfused 2 units PRBCs yesterday. Her Hgb is currently stable. -Will continue to monitor H&H with transfusion as needed -FOBT has been negative. 7 Hypotension -Patient has remained normotensive 8. Thrombocytopenia -No current evidence of bleeding or consumptive process. May be reactive to her aspiration pneumonia or C. difficile infection -Patient is continued on Valproic acid which can cause thrombocytopenia -Platelet levels have increased from previously. Will continue to monitor 9. History of Parkinsons -Continue home Sinemet via NG tube 10. Stress Ulcer Prophylaxis -Continue famotidine 11. DVT prophylaxis -c/w TEDS/sequentials DISPOSITION: Patient has shown slight improvement in her mentation. Patient will work with PT and ST. Pending improvement will likely need placement for rehabilitation I saw and evaluated the patient. I agree with the findings and plan of care as documented in the above note VS, I&O, 24H, Fishbone Vital Signs/I&O Vital Signs Date Time Temp Pulse Resp B/P (MAP) Pulse Ox O2 Delivery O2 Flow Rate FiO2 11/23/18 08:50 2.0 11/23/18 06:30 98.0 83 20 138/59 (85) 99 Nasal Cannula 11/21/18 13:02 35 I&O- Last 24 Hours up to 6 AM 11/23/18 06:00 Intake Total 2870 ml Output Total 1370 ml Balance 1500 ml Laboratory Data 24H LABS Laboratory Tests 2 11/22/18 18:36: Bedside Glucose (Misc Panel) 96 11/23/18 00:19: Bedside Glucose (Misc Panel) 136H 11/23/18 06:07: Bedside Glucose (Misc Panel) 117H 11/23/18 06:31: Nucleated Red Blood Cells % (auto) 0.0, Anion Gap 5L, Glomerular Filtration Rate > 60.0, Calcium Level 8.0L 11/23/18 12:14: Bedside Glucose (Misc Panel) 104 CBC/BMP Laboratory Tests 11/23/18 06:31 Microbiology Microbiology 11/22/18 Stool Occult Blood (YURIY) - Final, Complete 11/21/18 Urine Culture - Final, Complete Yeast Like Organism 11/19/18 Gram Stain - Final, Complete 11/19/18 Sputum Culture - Final, Complete 11/18/18 Gastrointestinal Tract Panel (PCR) - Final, Complete Clostridium Difficile A/B 11/16/18 Blood Culture - Final, Complete NO GROWTH AFTER 5 DAYS 11/16/18 Blood Culture - Final, Complete NO GROWTH AFTER 5 DAYS AHMET HERNANDEZ DO Nov 23, 2018 14:40 NORY HICKEY MD Nov 24, 2018 14:45
[2018-11-23 15:02] VITALS: BP 140/55
--- NOTE | 2018-11-23 18:41 | REPVR ---
PROCEDURE INFORMATION: Exam: US Duplex Right Upper Extremity Veins, Limited Exam date and time: 11/23/2018 6:01 PM Clinical history: 73 years old, female; Pain; Arn, upper; Right; Additional info: Swelling/picc line TECHNIQUE: Imaging protocol: Real-time Duplex ultrasound of the Right Upper Extremity with 2-D do scale, color Doppler flow and spectral waveform analysis with image documentation. Limited exam focused on the right upper extremity veins. COMPARISON: No relevant prior studies available. FINDINGS: Right deep veins: PICC line in the subclavian vein. Axillary and brachial veins are patent throughout without thrombus. Normal Doppler waveforms. Normal compressibility and/or augmentation response. Visualized internal jugular and subclavian veins are patent. Right superficial veins: PICC line in the basilic vein without evidence of thrombus. Heterogeneous thrombus in the cephalic vein, just above the elbow. Soft tissues: Unremarkable. IMPRESSION: 1. No sonographic evidence of deep venous thrombosis. 2. Heterogeneous thrombus in the cephalic vein, just above the elbow. Electronically signed by: Yury Zamora On 11/23/2018 18:40:44 PM
[2018-11-23 22:00] VITALS: BP 146/59
[2018-11-24] MEDS: HumaLOG INSULIN (NovoLOG) PER UNIT SC SCH ×4 (00:03→17:39)
[2018-11-24] MEDS: VANCOMYCIN ORAL SOL 250MG/5ML ORAL SYRINGE PO SCH ×4 (00:06→17:39)
[2018-11-24] MEDS: ALBUTEROL SULFATE 2.5 MG/0.5 ML INH NEB SOLN NEB SCH ×6 (04:00→20:30)
[2018-11-24 06:00] VITALS: BP 127/52
[2018-11-24] MEDS: SODIUM CHLORIDE 0.9% INJ 10 ML SYR IV SCH ×2 (06:17→17:44)
[2018-11-24 07:53] LABS: HEMOGLOBIN 10.1 g/dl (12.0-15.5); MEAN CORPUSCULAR HEMOGLOBIN 29.7 pg (27.0-33.0); MEAN CORPUSCULAR HGB CONC 32.6 g/dl (32.0-36.5); MEAN CORPUSCULAR VOLUME 91.2 fl (80.0-96.0); PLATELET COUNT, AUTOMATED 234 10^3/uL (150-450); WHITE BLOOD COUNT 6.7 10^3/uL (4.0-10.0)
[2018-11-24 08:17] LABS: BLOOD UREA NITROGEN 10 MG/DL (7-18); CALCIUM LEVEL 8.5 MG/DL (8.8-10.2); CARBON DIOXIDE LEVEL 29 MEQ/L (21-32); CHLORIDE LEVEL 109 MEQ/L (98-107); CREATININE FOR GFR 0.69 MG/DL (0.55-1.30); GLOMERULAR FILTRATION RATE > 60.0 (>39); GLUCOSE, FASTING 61 MG/DL (70-100); POTASSIUM SERUM 4.1 MEQ/L (3.5-5.1); SODIUM LEVEL 143 MEQ/L (136-145)
[2018-11-24] MEDS: PHENYTOIN 100 MG/2 ML VIAL (J1165) IV SCH ×2 (08:48→21:16)
[2018-11-24] MEDS: levETIRAcetam INJection 750 MG in D5W 100 ML IV SCH ×2 (08:49→22:29)
[2018-11-24] MEDS: ASPIRIN 325 MG TAB NG SCH (08:49)
[2018-11-24] MEDS: FAMOTIDINE IV BAG 20 MG in IV 1 EA IV SCH ×2 (08:49→21:40)
[2018-11-24] MEDS: SINEMET 25-100 MG TAB NG SCH ×3 (08:49→21:16)
--- NOTE | 2018-11-24 12:38 | IPNPDOC ---
Date Seen The patient was seen on 11/24/18. Progress Note SUBJECTIVE: Patient is arousable this a.m. She responds good morning she knows she is in [place] although she is unable to tell me the month or the year. She is able to follow some basic commands such as sticking out her tongue but does not follow commands when attempting to move her legs. She denies any complaints or feelings of pain at this time, she is feeling pretty good OBJECTIVE PHYSICAL EXAMINATION: VITAL SIGNS: Please see below. GENERAL: Awake. She does not appear to be in acute distress. She is lying in bed. Opening eyes spontaneously. She does not appear agitated HEENT: Atraumatic, normocephalic. Eyes are nonicteric. Trachea is midline. Nasogastric tube is in place CARDIOVASCULAR: Normal S1, S2. Regular rate and rhythm. No clicks rubs or murmurs. RESPIRATORY: Clear vesicular breath sounds bilaterally. Symmetric chest rise. No wheezes, rhonchi, or rales ABDOMINAL: Obese, soft, nondistended. Rectal tube in place. EXTREMITIES: Trace edema in bilateral lower extremities. Bilateral upper extremities/hands appear slightly edematous. Full and equal pulses in bilateral upper and lower extremities NEUROLOGICAL: Does not cooperate with neurologic testing for the most part LABORATORY DATA, IMAGING STUDIES, MICROBIOLOGY: Please see below. DVT prophylaxis ordered?: Mechanical ASSESSMENT AND PLAN: Patient is a 73 year old female who initially presented with changes in mentation and respiratory failure now extubated and undergoing treatment for C. difficile colitis PROBLEMS: 1. Acute on chronic metabolic encephalopathy given the history the etiology is not immediately clear it certainly could be secondary to C. difficile given her recent hospitalizations and the fact that she is actively having C. difficile and was having diarrhea at home. There is also concerned she may have exhibited some seizure-like activity and given that she has a seizure disorder her antiepileptic management regimen has been titrated up by neurology. She did have some mucous plugging resulting in respiratory failure which has resolved. He stated mental status seems to be improving gradually I'm optimistic that she is able to pass a speech therapy eval tomorrow we may be able to discontinue her nasogastric tube and begin her on some sort of diet. Patient does have a history of present was recently hospitalized in [place] 2. Physical therapy and occupational therapy both been ordered. 2. Acute hypoxemic respiratory failure requiring intubation and mechanical v entilation -Patient has been extubated and doing well with a stable respiratory status. It was secondary to mucous plugging likely secondary to her decreased cognitive status -Patient has completed 7 days of Zosyn for suspected aspiration pneumonia. Zosyn has been discontinued 3. Tube Feeding -Patient currently has a nasogastric tube in place and is receiving tube feeds -tube feeding will be continued with recommendations per Dietary. -Patient will receive Free water per recommendations by Dietary -Once patient is close to her baseline NG tube will be removed and patient will be started on a diet -"Speach" therapy has been ordered 4. C. difficle colitis -Patient has stool PCR positive for C. difficile. She has has increased diarrhea overnight. She is currently on oral vancomycin. She was on Zosyn for suspected aspiration pneumonia. She continues to have diarrhea. Will continue Oral Vancomycin for 10 days. Currently Day 04/14 -Continue Bacid 5. Anemia -Likely multifactorial, likely some element of dilution in addition to anemia of chronic disease. She is restricted received 2 units of PRBCs during this hospitalization is held onto them quite well 6 Hypotension -Patient has remained normotensive and not requiring any medication at this time 7. Thrombocytopenia Likely secondary to her acute infection does appear to be resolving 8. History of Parkinsons -Continue home Sinemet via NG tube 9. Stress Ulcer Prophylaxis -Continue famotidine 10. DVT prophylaxis Lovenox. She did have a duplex of the upper extremity that revealed a superficial venous thrombus however no evidence of any DVT. DISPOSITION: Patient continues to exhibit daily improvement in her mental status. She [facility] I would not be surprised if she even at her best necessitates this level of care. VS, I&O, 24H, [facility] Vital Signs/I&O Vital Signs Date Time Temp Pulse Resp B/P (MAP) Pulse Ox O2 Delivery O2 Flow Rate FiO2 11/24/18 06:00 99.1 87 20 127/52 (77) 97 Nasal Cannula 2.0 11/21/18 13:02 35 I&O- Last 24 Hours up to 6 AM 11/24/18 06:00 Intake Total 107.5 ml Balance 107.5 ml Laboratory Data 24H LABS Laboratory Tests 2 11/23/18 18:00: Bedside Glucose (Misc Panel) 89 11/23/18 23:59: Bedside Glucose (Misc Panel) 125H 11/24/18 05:35: Bedside Glucose (Misc Panel) 116H 11/24/18 07:34: Nucleated Red Blood Cells % (auto) 0.0 11/24/18 07:35: Anion Gap 5L, Glomerular Filtration Rate > 60.0, Calcium Level 8.5L 11/24/18 12:08: Bedside Glucose (Misc Panel) 121H CBC/BMP Laboratory Tests 11/24/18 07:34 11/24/18 07:35 Microbiology Microbiology 11/22/18 Stool Occult Blood (YURIY) - Final, Complete 11/21/18 Urine Culture - Final, Complete Yeast Like Organism 11/19/18 Gram Stain - Final, Complete 11/19/18 Sputum Culture - Final, Complete 11/18/18 Gastrointestinal Tract Panel (PCR) - Final, Complete Clostridium Difficile A/B 11/16/18 Blood Culture - Final, Complete NO GROWTH AFTER 5 DAYS 11/16/18 Blood Culture - Final, Complete NO GROWTH AFTER 5 DAYS NORY HICKEY MD Nov 24, 2018 12:38
[2018-11-24 14:00] VITALS: BP 102/56
[2018-11-24] MEDS: ENOXAPARIN 40 MG/0.4 ML SYRINGE (J1650) SC SCH (17:44)
[2018-11-24 22:00] VITALS: BP 116/54
[2018-11-25] MEDS: ALBUTEROL SULFATE 2.5 MG/0.5 ML INH NEB SOLN NEB SCH ×6 (00:06→20:00)
[2018-11-25] MEDS ORDERED: ALPRAZolam 0.25 MG TAB PO ONE (00:15)
[2018-11-25] MEDS: HumaLOG INSULIN (NovoLOG) PER UNIT SC SCH ×4 (00:24→16:58)
[2018-11-25] MEDS: VANCOMYCIN ORAL SOL 250MG/5ML ORAL SYRINGE PO SCH ×4 (00:24→16:57)
[2018-11-25 06:00] VITALS: BP 104/56
[2018-11-25] MEDS: SODIUM CHLORIDE 0.9% INJ 10 ML SYR IV SCH ×2 (06:06→16:59)
[2018-11-25 09:33] LABS: HEMATOCRIT 30.8 % (36.0-47.0); HEMOGLOBIN 9.9 g/dl (12.0-15.5); MEAN CORPUSCULAR HEMOGLOBIN 29.8 pg (27.0-33.0); MEAN CORPUSCULAR HGB CONC 32.1 g/dl (32.0-36.5); MEAN CORPUSCULAR VOLUME 92.8 fl (80.0-96.0); PLATELET COUNT, AUTOMATED 283 10^3/uL (150-450); RED BLOOD COUNT 3.32 10^6/uL (4.00-5.40); WHITE BLOOD COUNT 6.4 10^3/uL (4.0-10.0)
[2018-11-25] MEDS: SINEMET 25-100 MG TAB NG SCH ×3 (09:42→20:33)
[2018-11-25] MEDS: ASPIRIN 325 MG TAB NG SCH (09:42)
[2018-11-25] MEDS: FAMOTIDINE IV BAG 20 MG in IV 1 EA IV SCH (09:43)
[2018-11-25] MEDS: ENOXAPARIN 40 MG/0.4 ML SYRINGE (J1650) SC SCH (09:43)
[2018-11-25] MEDS: levETIRAcetam INJection 750 MG in D5W 100 ML IV SCH ×2 (09:43→22:08)
[2018-11-25] MEDS: PHENYTOIN 100 MG/2 ML VIAL (J1165) IV SCH ×2 (09:43→21:17)
[2018-11-25 10:00] LABS: BLOOD UREA NITROGEN 10 MG/DL (7-18); CALCIUM LEVEL 8.9 MG/DL (8.8-10.2); CARBON DIOXIDE LEVEL 30 MEQ/L (21-32); CHLORIDE LEVEL 106 MEQ/L (98-107); CREATININE FOR GFR 0.71 MG/DL (0.55-1.30); GLOMERULAR FILTRATION RATE > 60.0 (>39); GLUCOSE, FASTING 97 MG/DL (70-100); SODIUM LEVEL 142 MEQ/L (136-145)
[2018-11-25 14:00] VITALS: BP 122/58
--- NOTE | 2018-11-25 14:02 | IPNPDOC ---
Date Seen The patient was seen on 11/25/18. Progress Note SUBJECTIVE: Patient is a 73-year-old female with history of PRES. She initially presented for change in mental status and respiratory failure, status post extubation, currently undergoing treatment for C. difficile colitis. Patient is alert today, but has difficulty answering questions. She is able to identify that she is in [place], [place]. Unable to identify that she is in the hospital. She also states her son lives in [place]. However, her son is known to currently reside in [place]. She denies having any pain. States she is feeling okay today. Otherwise, she is unable to consistently answer questions. The patient appears to be very hard of hearing and is more consistent ly able to answer questions when they're spoken loudly directly into her ear. The patient is also blind so she does not maintain eye contact. OBJECTIVE PHYSICAL EXAMINATION: VITAL SIGNS: Please see below. GENERAL: Awake. She does not appear to be in acute distress. She is lying in bed. Opening eyes spontaneously. She does not appear agitated HEENT: Atraumatic, normocephalic. Eyes are nonicteric. Trachea is midline. Nasogastric tube is in place CARDIOVASCULAR: Normal S1, S2. Regular rate and rhythm. No clicks rubs or murmurs. RESPIRATORY: Clear vesicular breath sounds bilaterally. Symmetric chest rise. No wheezes, rhonchi, or rales ABDOMINAL: Obese, soft, nondistended. EXTREMITIES: Trace edema in bilateral lower extremities. Bilateral upper extremities/hands appear slightly edematous. Full and equal pulses in bilateral upper and lower extremities NEUROLOGICAL: Pt is alert but not able to follow commands, unable to assess due to mental status function PSYCHOLOGICAL: Unable to assess due to mental status function LABORATORY DATA, IMAGING STUDIES, MICROBIOLOGY: Please see below. DVT prophylaxis ordered?: Lovenox ASSESSMENT AND PLAN: This is a 73-year-old female with history of PRES . She was initially presented for change in mental status and respiratory failure, status post extubation, currently undergoing treatment for C. difficile colitis. PROBLEMS: 1. Acute on chronic metabolic encephalopathy - Given the history the etiology is not immediately clear. It certainly could be secondary to C. difficile given her recent hospitalizations and the fact that she is actively having C. difficile and was having diarrhea at home. There is also concerned she may have exhibited some seizure-like activity and given that she has a seizure disorder her antiepileptic management regimen has been titrated up by neurology. She did have some mucous plugging resulting in respiratory failure which has resolved. He stated mental status seems to be improving gradually. Patient was recently hospitalized in [place] 2. -Physical therapy, occupational therapy, and speech therapy have been ordered and plan to work with patient as her mental status improves and she is better a ble to follow commands. Considering the patient's altered mental status and slow improvement, she s hould not receive any benzodiazepines which may cause her to become further altered and subsequently slow her progression 2. Acute hypoxemic respiratory failure requiring intubation and mechanical ve ntilation -Patient has been extubated and doing well with a stable respiratory status. It was secondary to mucous plugging likely secondary to her decreased cognitive status -Patient has completed 7 days of Zosyn for suspected aspiration pneumonia. Zosyn has been discontinued 3. Tube Feeding -Patient currently has a nasogastric tube in place and is receiving tube feeds -tube feeding will be continued with recommendations per Dietary. -Patient will receive Free water per recommendations by Dietary -Once patient is close to her baseline NG tube will be removed and patient will be started on a diet -Patient has been evaluated by speech therapy today. We will continue with NG tube for now. Continue to evaluate as her mental status improves and when she gets her dentures from home to see when we can discharge the NG tube and start an oral diet. 4. C. difficle colitis -Patient has stool PCR positive for C. difficile. She has has increased diarrhea overnight. She is currently on oral vancomycin. She was on Zosyn for suspected aspiration pneumonia. She continues to have diarrhea. Will continue Oral Vancomycin for 10 days. Currently Day 05/15 -Continue Bacid 5. Anemia -Likely multifactorial, likely some element of dilution in addition to anemia of chronic disease. She is restricted received 2 units of PRBCs during this hospitalization is held onto them quite well 6 Hypotension -Patient has remained normotensive and not requiring any medication at this time 7. Thrombocytopenia -Likely secondary to her acute infection does appear to be resolving 8. History of Parkinsons -Continue home Sinemet via NG tube 9. Stress Ulcer Prophylaxis -Patient no longer needs stress ulcer prophylaxis as she is no longer intubated. Discontinued famotidine. 10. DVT prophylaxis -Lovenox. She did have a duplex of the upper extremity that revealed a superficial venous thrombus however no evidence of any DVT. DISPOSITION: Inpatient pending improvement of mental status I saw and evaluated the patient. I agree with the findings and plan of care as documented in the above note VS, I&O, 24H, Fishbone Vital Signs/I&O Vital Signs Date Time Temp Pulse Resp B/P (MAP) Pulse Ox O2 Delivery O2 Flow Rate FiO2 11/25/18 06:00 99.0 80 22 104/56 (72) 97 Nasal Cannula 2.0 11/21/18 13:02 35 I&O- Last 24 Hours up to 6 AM 11/25/18 06:00 Intake Total 0 ml Balance 0 ml Laboratory Data 24H LABS Laboratory Tests 2 11/24/18 12:08: Bedside Glucose (Misc Panel) 121H 11/24/18 17:33: Bedside Glucose (Misc Panel) 120H 11/25/18 00:03: Bedside Glucose (Misc Panel) 150H 11/25/18 06:00: Bedside Glucose (Misc Panel) 123H 11/25/18 09:07: Nucleated Red Blood Cells % (auto) 0.0, Anion Gap 6L, Glomerular Filtration Rate > 60.0, Calcium Level 8.9 CBC/BMP Laboratory Tests 11/25/18 09:07 Microbiology Microbiology 11/22/18 Stool Occult Blood (YURIY) - Final, Complete 11/21/18 Urine Culture - Final, Complete Yeast Like Organism 11/19/18 Gram Stain - Final, Complete 11/19/18 Sputum Culture - Final, Complete 11/18/18 Gastrointestinal Tract Panel (PCR) - Final, Complete Clostridium Difficile A/B 11/16/18 Blood Culture - Final, Complete NO GROWTH AFTER 5 DAYS 11/16/18 Blood Culture - Final, Complete NO GROWTH AFTER 5 DAYS YOBANY GIBSON PGY-1 Nov 25, 2018 12:29 NORY HICKEY MD Dec 04, 2018 12:08
[2018-11-25 20:33] VITALS: BP 134/67
[2018-11-26] MEDS ORDERED: ALPRAZolam 0.5 MG TAB NG ONE (00:45)
[2018-11-26] MEDS: VANCOMYCIN ORAL SOL 250MG/5ML ORAL SYRINGE PO SCH ×5 (02:05→23:57)
[2018-11-26] MEDS: HumaLOG INSULIN (NovoLOG) PER UNIT SC SCH ×4 (02:06→17:13)
[2018-11-26] MEDS: ACETAMINOPHEN 325 MG/10.15 ML UDC NG PRN (02:08)
[2018-11-26 02:44] VITALS: BP 126/87
--- NOTE | 2018-11-26 03:45 | REPVR ---
PROCEDURE INFORMATION: Exam: XR Chest, 1 View Exam date and time: 11/26/2018 2:07 AM Clinical history: 73 years old, female; Device placement; Ng tube; Additional info: Placement confirmation of ng tube with stat read TECHNIQUE: Imaging protocol: XR of the chest Views: 1 view. COMPARISON: CR PORTABLE CHEST X-RAY 11/21/2018 6:45 AM FINDINGS: Tubes, catheters and devices: Nasogastric tube extends into the stomach. Right PICC line is in the upper SVC. Lungs: Left basilar opacities have improved since the prior exam. Mild hypoventilatory changes in the right lung base. Pleural space: Small right pleural effusion. Heart/Mediastinum: Unremarkable. No cardiomegaly. Bones/joints: Unremarkable. IMPRESSION: As above. Electronically signed by: Hadley Dsouza On 11/26/2018 03:45:02 AM
[2018-11-26] MEDS: ALBUTEROL SULFATE 2.5 MG/0.5 ML INH NEB SOLN NEB SCH ×3 (04:00→08:00)
[2018-11-26 05:37] VITALS: BP 145/58
[2018-11-26] MEDS: SODIUM CHLORIDE 0.9% INJ 10 ML SYR IV SCH ×2 (06:05→17:13)
[2018-11-26 06:19] LABS: HEMOGLOBIN 10.1 g/dl (12.0-15.5); MEAN CORPUSCULAR HEMOGLOBIN 28.9 pg (27.0-33.0); MEAN CORPUSCULAR HGB CONC 31.6 g/dl (32.0-36.5); MEAN CORPUSCULAR VOLUME 91.4 fl (80.0-96.0); PLATELET COUNT, AUTOMATED 334 10^3/uL (150-450); WHITE BLOOD COUNT 5.9 10^3/uL (4.0-10.0)
[2018-11-26 06:39] LABS: BLOOD UREA NITROGEN 10 MG/DL (7-18); CALCIUM LEVEL 8.8 MG/DL (8.8-10.2); CARBON DIOXIDE LEVEL 29 MEQ/L (21-32); CHLORIDE LEVEL 109 MEQ/L (98-107); GLOMERULAR FILTRATION RATE > 60.0 (>39); GLUCOSE, FASTING 114 MG/DL (70-100); POTASSIUM SERUM 4.1 MEQ/L (3.5-5.1); SODIUM LEVEL 143 MEQ/L (136-145)
[2018-11-26] MEDS: ASPIRIN 325 MG TAB NG SCH (08:39)
[2018-11-26] MEDS: SINEMET 25-100 MG TAB NG SCH ×3 (08:39→20:32)
[2018-11-26] MEDS: ENOXAPARIN 40 MG/0.4 ML SYRINGE (J1650) SC SCH (08:39)
[2018-11-26] MEDS: PHENYTOIN 100 MG/2 ML VIAL (J1165) IV SCH ×2 (08:40→20:32)
[2018-11-26] MEDS: levETIRAcetam INJection 750 MG in D5W 100 ML IV SCH ×2 (09:38→21:25)
--- NOTE | 2018-11-26 13:19 | IPNPDOC ---
Date Seen The patient was seen on 11/26/18. Progress Note SUBJECTIVE: Patient is a 73-year-old female with history of PRES. She initially presented for change in mental status and respiratory failure, status post extubation, currently undergoing treatment for C. difficile colitis. Patient is alert today and somewhat better able to answer questions. She was able to identify her name and location. However, she was not able to identify the month or year. Yesterday when I examined her, she would typically say she didn't know the answer to most malrotation questions, but today she is making an effort to answer, although some of her answers are correct. She states she is feeling okay today and denies any pain. I spoke with her sister yesterday who said she will bring in her dentures, hearing, and comfort items from home. Patient did pull her NG tube overnight last night and it was replaced. Patient is currently in minutes to prevent her from pulling on any more tubes or IVs. OBJECTIVE PHYSICAL EXAMINATION: VITAL SIGNS: Please see below. GENERAL: Awake. She does not appear to be in acute distress. She is lying in bed. Opening eyes spontaneously. She does not appear agitated HEENT: Atraumatic, normocephalic. Eyes are nonicteric. Trachea is midline. Nasogastric tube is in place CARDIOVASCULAR: Normal S1, S2. Regular rate and rhythm. No clicks rubs or murmurs. RESPIRATORY: Clear vesicular breath sounds bilaterally. Symmetric chest rise. No wheezes, rhonchi, or rales ABDOMINAL: Obese, soft, nondistended. EXTREMITIES: Trace edema in bilateral lower extremities. Bilateral upper extremities/hands appear slightly edematous. Full and equal pulses in bilateral upper and lower extremities NEUROLOGICAL: Pt is alert but not able to follow commands, unable to assess due to mental status function. She does move all 4 extremities spontaneously. PSYCHOLOGICAL: Unable to assess due to mental status function LABORATORY DATA, IMAGING STUDIES, MICROBIOLOGY: Please see below. DVT prophylaxis ordered?: Lovenox ASSESSMENT AND PLAN: This is a 73-year-old female with history of PRES . She was initially presented for change in mental status and respiratory failure, status post extubation, currently undergoing treatment for C. difficile colitis. PROBLEMS: 1. Acute on chronic metabolic encephalopathy - possibly 2/2 dementia, history of recent refractory seizures, history of prior hemorrhagic strokes - Given the history the etiology is not immediately clear. It certainly could be secondary to C. difficile given her recent hospitalizations and the fact that she is actively having C. difficile and was having diarrhea at home. There is also concerned she may have exhibited some seizure-like activity and given that she has a seizure disorder her antiepileptic management regimen has been titrated up by neurology. She did have some mucous plugging resulting in respiratory failure which has resolved. He stated mental status seems to be improving gradually. Patient was recently hospitalized in [place] 2. -Physical therapy, occupational therapy, and speech therapy have been ordered and plan to work with patient as her mental status improves and she is better able to follow commands. Patient should be receiving her hearing aide and dentures today from home, which should help with these. Considering the patient's altered mental status and slow improvement, she should not receive any benzodiazepines which may cause her to become further altered and subsequently slow her progression 2. Acute hypoxemic respiratory failure requiring intubation and mechanical ventilation -Patient has been extubated and doing well with a stable respiratory status. It was secondary to mucous plugging likely secondary to her decreased cognitive status -Patient has completed 7 days of Zosyn for suspected aspiration pneumonia. Zosyn has been discontinued 3. Tube Feeding -Patient currently has a nasogastric tube in place and is receiving tube feeds -tube feeding will be continued with recommendations per Dietary. -Patient will receive Free water per recommendations by Dietary -Once patient is close to her baseline NG tube will be removed and patient will be started on a diet -Patient has been evaluated by speech therapy today. We will continue with NG tube for now. Continue to evaluate as her mental status improves and when she gets her dentures from home to see when we can remove the NG tube and start an oral diet. Patient did pull her NG tube overnight last night and it was replaced. Patient is currently in minutes to prevent her from pulling on any more tubes or IVs. 4. C. difficle colitis -Patient has stool PCR positive for C. difficile. She has has increased diarrhea overnight. She is currently on oral vancomycin. She was on Zosyn for suspected aspiration pneumonia. She continues to have diarrhea. Will continue Oral Vancomycin for 10 days. Currently Day 05/15 -Continue Bacid 5. Anemia -Likely multifactorial, likely some element of dilution in addition to anemia of chronic disease. She is restricted received 2 units of PRBCs during this hospitalization is held onto them quite well H&H has been stable 6 Hypotension -Patient has remained normotensive and not requiring any medication at this time 7. Thrombocytopenia -Likely secondary to her acute infection does appear to be resolved at this time 8. History of Parkinsons -Continue home Sinemet via NG tube 9. Stress Ulcer Prophylaxis -Patient no longer needs stress ulcer prophylaxis as she is no longer intubated. Discontinued famotidine. 10. DVT prophylaxis -Lovenox. She did have a duplex of the upper extremity that revealed a superficial venous thrombus however no evidence of any DVT. DISPOSITION: Inpatient pending improvement of mental status VS, I&O, 24H, Fishbone Vital Signs/I&O Vital Signs Date Time Temp Pulse Resp B/P (MAP) Pulse Ox O2 Delivery O2 Flow Rate FiO2 11/26/18 09:00 85 18 99 2.0 11/26/18 05:37 99.1 145/58 (87) Nasal Cannula 11/21/18 13:02 35 I&O- Last 24 Hours up to 6 AM 11/26/18 06:00 Intake Total 2495.0 ml Output Total 1 ml Balance 2494.0 ml Laboratory Data 24H LABS Laboratory Tests 2 11/25/18 16:32: Bedside Glucose (Misc Panel) 69L 11/26/18 00:21: Bedside Glucose (Misc Panel) 119H 11/26/18 05:40: Bedside Glucose (Misc Panel) 101 11/26/18 06:01: Nucleated Red Blood Cells % (auto) 0.0, Anion Gap 5L, Glomerular Filtration Rate > 60.0, Calcium Level 8.8 11/26/18 12:13: Bedside Glucose (Misc Panel) 120H CBC/BMP Laboratory Tests 11/26/18 06:01 Microbiology Microbiology 11/22/18 Stool Occult Blood (YURIY) - Final, Complete 11/21/18 Urine Culture - Final, Complete Yeast Like Organism 11/19/18 Gram Stain - Final, Complete 11/19/18 Sputum Culture - Final, Complete 11/18/18 Gastrointestinal Tract Panel (PCR) - Final, Complete Clostridium Difficile A/B 11/16/18 Blood Culture - Final, Complete NO GROWTH AFTER 5 DAYS 11/16/18 Blood Culture - Final, Complete NO GROWTH AFTER 5 DAYS GME ATTESTATION GME ATTESTATION My faculty preceptor for this patient encounter was physically present during the encounter and was fully available. All aspects of the patient interview, examination, medical decision making process, and medical care plan development were reviewed and approved by the faculty preceptor. The faculty preceptor is aware and concurs with the plan as stated in the body of this note and will attest to such by his/her cosignature. ATTENDING NOTE I, [place] Patricia, have independently examined this patient and performed my own physical exam, as well as reviewed the documentation and edited where necessary. I have discussed in detail with the resident / student the findings and plan of treatment as documented by the resident / student and edited their note. I agree with their findings and treatment plan and have edited their documentation. I will continue to follow the patient during this hospital stay. Discussed with HCP in [place] - Discussed that we are awaiting input from speech therapy - Possible advancing diet as tolerated; if not consideration of feeding tube vs. 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
[2018-11-26 15:07] VITALS: BP 93/44
[2018-11-26 16:19] VITALS: BP 97/45
[2018-11-26 22:00] VITALS: BP 111/54
--- NOTE | 2018-11-26 22:54 | EEG ---
DATE OF PROCEDURE: 11/25/2018 REFERRING PHYSICIAN: Dr. Cuba Harrell DIAGNOSIS: Seizures and altered mental status. EEG NUMBER: [id number] HISTORY: The patient is a 73-year-old woman with a history of hypertensive emergency, PRES, bilateral occipital stroke, possible seizures. She is currently taking Dilantin, Keppra, Sinemet, etc. TECHNICAL DESCRIPTION: This digital EEG was recorded by 21 scalp, ear and two EKG electrodes and was reviewed in bipolar and referential montages following reformatting in 10-20 international electrode placement system. INTERPRETATION: The patient was noted to be in mostly drowsy states during this EEG. Resting background rhythm consisted of 7 Hz theta activity measuring 15-40 microvolts in amplitude, which was symmetric bilaterally. No clear sleep stages were identified. Hyperventilation could not be performed. Photic stimulation remained unremarkable. Intermittent left greater than right parietal and posterior temporal delta slowing was noted. No clear epileptiform abnormalities were seen. No relevant clinical activity was noted. EKG revealed normal sinus rhythm. CONCLUSION: This EEG in mostly drowsy state is abnormal due to presence of mild generalized slowing consistent with mild nonspecific diffuse cerebral dysfunction such as seen in encephalopathy due to multiple potential causes. In addition, focal slowing, left more than right posterior temporal and parietal head regions was noted, consistent with focal cortical structural or functional abnormality. In some patients with focal onset seizures, focal slowing may be the only abnormality apparent on scalp EEG. Clinical correlation is recommended.
[2018-11-27] MEDS: HumaLOG INSULIN (NovoLOG) PER UNIT SC SCH ×5 (01:09→23:44)
[2018-11-27] MEDS: VANCOMYCIN ORAL SOL 250MG/5ML ORAL SYRINGE PO SCH ×4 (05:55→23:44)
[2018-11-27] MEDS: SODIUM CHLORIDE 0.9% INJ 10 ML SYR IV SCH ×2 (05:55→18:19)
[2018-11-27 06:04] LABS: HEMATOCRIT 30.5 % (36.0-47.0); HEMOGLOBIN 9.6 g/dl (12.0-15.5); MEAN CORPUSCULAR HEMOGLOBIN 29.2 pg (27.0-33.0); MEAN CORPUSCULAR HGB CONC 31.5 g/dl (32.0-36.5); MEAN CORPUSCULAR VOLUME 92.7 fl (80.0-96.0); PLATELET COUNT, AUTOMATED 379 10^3/uL (150-450); RED BLOOD COUNT 3.29 10^6/uL (4.00-5.40); WHITE BLOOD COUNT 5.5 10^3/uL (4.0-10.0)
[2018-11-27 06:06] VITALS: BP 110/50
[2018-11-27 06:26] LABS: BLOOD UREA NITROGEN 11 MG/DL (7-18); CALCIUM LEVEL 8.8 MG/DL (8.8-10.2); CARBON DIOXIDE LEVEL 29 MEQ/L (21-32); CHLORIDE LEVEL 106 MEQ/L (98-107); CREATININE FOR GFR 0.64 MG/DL (0.55-1.30); GLOMERULAR FILTRATION RATE > 60.0 (>39); GLUCOSE, FASTING 125 MG/DL (70-100); POTASSIUM SERUM 4.2 MEQ/L (3.5-5.1); SODIUM LEVEL 142 MEQ/L (136-145)
[2018-11-27] MEDS: SINEMET 25-100 MG TAB NG SCH ×3 (08:53→21:10)
[2018-11-27] MEDS: ENOXAPARIN 40 MG/0.4 ML SYRINGE (J1650) SC SCH (08:53)
[2018-11-27] MEDS: ASPIRIN 325 MG TAB NG SCH (08:53)
[2018-11-27] MEDS: PHENYTOIN 100 MG/2 ML VIAL (J1165) IV SCH ×2 (08:54→21:10)
[2018-11-27] MEDS: levETIRAcetam INJection 750 MG in D5W 100 ML IV SCH ×2 (09:27→21:10)
--- NOTE | 2018-11-27 12:15 | IPNPDOC ---
Date Seen The patient was seen on 11/27/18. Progress Note SUBJECTIVE: Patient is a 73-year-old female with history of PRES. She initially presented for change in mental status and respiratory failure, status post extubation, currently undergoing treatment for C. difficile colitis. Patient is alert this morning and about stable from yesterday is 5 mental status. She continues to answer some questions appropriately while at other times, repeating answers or questions without any direction or appropriate answer. She is able to identify her name and location but could not identify the date, including the month or year. He she states she is feeling okay today. He denies any pain. She did work with speech therapy yesterday and was able to work better with them in the afternoon she was more alert. OBJECTIVE PHYSICAL EXAMINATION: VITAL SIGNS: Please see below. GENERAL: Awake. She does not appear to be in acute distress. She is lying in bed. Opening eyes spontaneously. She does not appear agitated HEENT: Atraumatic, normocephalic. Eyes are nonicteric. Trachea is midline. Nasogastric tube is in place CARDIOVASCULAR: Normal S1, S2. Regular rate and rhythm. No clicks rubs or murmurs. RESPIRATORY: Clear vesicular breath sounds bilaterally. Symmetric chest rise. No wheezes, rhonchi, or rales ABDOMINAL: Obese, soft, nondistended. EXTREMITIES: Trace edema in bilateral lower extremities. Bilateral upper extremities/hands appear slightly edematous. Full and equal pulses in bilateral upper and lower extremities NEUROLOGICAL: Pt is alert but not able to follow commands, unable to assess due to mental status function. She does move all 4 extremities spontaneously. PSYCHOLOGICAL: Unable to assess due to mental status function LABORATORY DATA, IMAGING STUDIES, MICROBIOLOGY: Please see below. DVT prophylaxis ordered?: Lovenox ASSESSMENT AND PLAN: This is a 73-year-old female with history of PRES . She was initially presented for change in mental status and respiratory failure, status post extubation, currently undergoing treatment for C. difficile colitis. PROBLEMS: 1. Acute on chronic metabolic encephalopathy - possibly 2/2 dementia, history of recent refractory seizures, history of prior hemorrhagic strokes - Given the history the etiology is not immediately clear. It certainly could be secondary to C. difficile given her recent hospitalizations and the fact that she is actively having C. difficile and was having diarrhea at home. There is also concerned she may have exhibited some seizure-like activity and given that she has a seizure disorder her antiepileptic management regimen has been titrated up by neurology. She did have some mucous plugging resulting in respiratory failure which has resolved. He stated mental status seems to be improving gradually. Patient was recently hospitalized in [place] 2. -Physical therapy, occupational therapy, and speech therapy have been ordered and plan to work with patient as her mental status improves and she is better able to follow commands. Patient should be receiving her hearing aide and dentures today from home, which should help with these. Considering the patient's altered mental status and slow improvement, she should not receive any benzodiazepines which may cause her to become further altered and subsequently slow her progression. Plan for today is to start oral diet with honey thickened liquids and pured foods to see how she tolerates this, she will need to be spoon fed with assistance. We will keep the NG tube in place for now until she is tolerating an oral diet, and that time we can pull the NG tube. 2. Acute hypoxemic respiratory failure requiring intubation and mechanical ventilation -Patient has been extubated and doing well with a stable respiratory status. It was secondary to mucous plugging likely secondary to her decreased cognitive status -Patient has completed 7 days of Zosyn for suspected aspiration pneumonia. Zosyn has been discontinued 3. Tube Feeding Patient has been receiving tube feeds. Today we will start her on an oral diet with honey thickened liquids and pured foods to see how she tolerates this. If the oral diet as tolerated. We can pull the NG tube. Patient will continue to work with speech therapy on this as well. 4. C. difficle colitis -Patient has stool PCR positive for C. difficile. She is currently on oral vancomycin. She was on Zosyn for suspected aspiration pneumonia. Will continue Oral Vancomycin for 10 days. Currently Day 11/14, will discontinue oral vancomycin after today. 5. Anemia -Likely multifactorial, likely some element of dilution in addition to anemia of chronic disease. She is restricted received 2 units of PRBCs during this hospitalization is held onto them quite well H&H has been stable 6 Hypotension -Patient has remained normotensive and not requiring any medication at this time 7. Thrombocytopenia -Likely secondary to her acute infection does appear to be resolved at this time 8. History of Parkinsons -Continue home Sinemet 9. Stress Ulcer Prophylaxis -Patient no longer needs stress ulcer prophylaxis as she is no longer intubated. Discontinued famotidine. 10. DVT prophylaxis -Lovenox. She did have a duplex of the upper extremity that revealed a superficial venous thrombus however no evidence of any DVT. DISPOSITION: Inpatient pending improvement of mental status VS, I&O, 24H, Fishbone Vital Signs/I&O Vital Signs Date Time Temp Pulse Resp B/P (MAP) Pulse Ox O2 Delivery O2 Flow Rate FiO2 11/27/18 09:00 2.0 11/27/18 06:06 97.6 81 18 110/50 (70) 98 Nasal Cannula 11/21/18 13:02 35 I&O- Last 24 Hours up to 6 AM 11/27/18 05:59 Intake Total 2667.5 ml Balance 2667.5 ml Laboratory Data 24H LABS Laboratory Tests 2 11/26/18 12:13: Bedside Glucose (Misc Panel) 120H 11/26/18 16:51: Bedside Glucose (Misc Panel) 96 11/27/18 01:01: Bedside Glucose (Misc Panel) 136H 11/27/18 05:43: Nucleated Red Blood Cells % (auto) 0.0, Anion Gap 7L, Glomerular Filtration Rate > 60.0, Calcium Level 8.8 11/27/18 06:08: Bedside Glucose (Misc Panel) 116H 11/27/18 11:29: Bedside Glucose (Misc Panel) 133H CBC/BMP Laboratory Tests 11/27/18 05:43 Microbiology Microbiology 11/22/18 Stool Occult Blood (YURIY) - Final, Complete 11/21/18 Urine Culture - Final, Complete Yeast Like Organism 11/19/18 Gram Stain - Final, Complete 11/19/18 Sputum Culture - Final, Complete 11/18/18 Gastrointestinal Tract Panel (PCR) - Final, Complete Clostridium Difficile A/B GME ATTESTATION GME ATTESTATION My faculty preceptor for this patient encounter was physically present during the encounter and was fully available. All aspects of the patient interview, examination, medical decision making process, and medical care plan development were reviewed and approved by the faculty preceptor. The faculty preceptor is aware and concurs with the plan as stated in the body of this note and will attest to such by his/her cosignature. ATTENDING NOTE I, Cuba Patricia, have independently examined this patient and performed my own physical exam, as well as reviewed the documentation and edited where necessary. I have discussed in detail with the resident / student the findings and plan of treatment as documented by the resident / student and edited their note. I agree with their findings and treatment plan and have edited their documentation. I will continue to follow the patient during this hospital stay. YOBANY GIBSON PGY-1 Nov 27, 2018 12:15 CUBA PATRICIA MD Nov 27, 2018 14:29
[2018-11-27 14:00] VITALS: BP 101/41
[2018-11-27 22:00] VITALS: BP 111/59
[2018-11-28] MEDS ORDERED: diphenhydrAMINE INJ 50MG/ML VIAL (J1200) IV ONE (03:45)
[2018-11-28] MEDS: HumaLOG INSULIN (NovoLOG) PER UNIT SC SCH ×3 (06:00→18:00)
[2018-11-28] MEDS: SODIUM CHLORIDE 0.9% INJ 10 ML SYR IV SCH ×2 (06:09→18:24)
[2018-11-28] MEDS: VANCOMYCIN ORAL SOL 250MG/5ML ORAL SYRINGE PO SCH (06:09)
[2018-11-28 06:51] LABS: HEMATOCRIT 30.1 % (36.0-47.0); HEMOGLOBIN 9.6 g/dl (12.0-15.5); MEAN CORPUSCULAR HEMOGLOBIN 29.9 pg (27.0-33.0); MEAN CORPUSCULAR HGB CONC 31.9 g/dl (32.0-36.5); MEAN CORPUSCULAR VOLUME 93.8 fl (80.0-96.0); PLATELET COUNT, AUTOMATED 423 10^3/uL (150-450); RED BLOOD COUNT 3.21 10^6/uL (4.00-5.40); WHITE BLOOD COUNT 5.5 10^3/uL (4.0-10.0)
[2018-11-28 07:18] LABS: BLOOD UREA NITROGEN 10 MG/DL (7-18); CALCIUM LEVEL 8.8 MG/DL (8.8-10.2); CARBON DIOXIDE LEVEL 28 MEQ/L (21-32); CHLORIDE LEVEL 105 MEQ/L (98-107); CREATININE FOR GFR 0.61 MG/DL (0.55-1.30); GLOMERULAR FILTRATION RATE > 60.0 (>39); GLUCOSE, FASTING 87 MG/DL (70-100); POTASSIUM SERUM 4.2 MEQ/L (3.5-5.1); SODIUM LEVEL 139 MEQ/L (136-145)
[2018-11-28] MEDS: ENOXAPARIN 40 MG/0.4 ML SYRINGE (J1650) SC SCH (08:48)
[2018-11-28] MEDS: ASPIRIN 325 MG TAB NG SCH (08:48)
[2018-11-28] MEDS: SINEMET 25-100 MG TAB NG SCH ×2 (08:48→16:16)
[2018-11-28] MEDS: PHENYTOIN 100 MG/2 ML VIAL (J1165) IV SCH ×2 (08:48→21:08)
[2018-11-28] MEDS: levETIRAcetam INJection 750 MG in D5W 100 ML IV SCH ×2 (09:32→21:08)
[2018-11-28 10:00] VITALS: BP 101/48
--- NOTE | 2018-11-28 11:09 | IPNPDOC ---
Date Seen The patient was seen on 11/28/18. Progress Note SUBJECTIVE: Patient is a 73-year-old female with history of PRES. She initially presented for change in mental status and respiratory failure, status post extubation, currently undergoing treatment for C. difficile colitis. Patient is seen morning laying comfortably in bed. He is somewhat lethargic and falling back asleep between questions and examination. She does state she is feeling well and denies any pain. She is able to tell me her name, but fell back asleep and was not alert enough to continue to answer orientation questions. NG tube has been removed. OBJECTIVE PHYSICAL EXAMINATION: VITAL SIGNS: Please see below. GENERAL: Awake. She does not appear to be in acute distress. She is lying in bed. Opening eyes spontaneously. She does not appear agitated HEENT: Atraumatic, normocephalic. Eyes are nonicteric. Trachea is midline. Nasogastric tube is in place CARDIOVASCULAR: Normal S1, S2. Regular rate and rhythm. No clicks rubs or murmurs. RESPIRATORY: Clear vesicular breath sounds bilaterally. Symmetric chest rise. No wheezes, rhonchi, or rales ABDOMINAL: Obese, soft, nondistended. EXTREMITIES: Trace edema in bilateral lower extremities. Bilateral upper extremities/hands appear slightly edematous. Full and equal pulses in bilateral upper and lower extremities NEUROLOGICAL: Pt is alert but not able to follow commands, unable to assess due to mental status function. She does move all 4 extremities spontaneously. PSYCHOLOGICAL: Unable to assess due to mental status function LABORATORY DATA, IMAGING STUDIES, MICROBIOLOGY: Please see below. DVT prophylaxis ordered?: Lovenox ASSESSMENT AND PLAN: This is a 73-year-old female with history of PRES . She was initially presented for change in mental status and respiratory failure, status post extubation, currently undergoing treatment for C. difficile colitis. PROBLEMS: 1. Acute on chronic metabolic encephalopathy - possibly 2/2 dementia, history of recent refractory seizures, history of prior hemorrhagic strokes - Given the history the etiology is not immediately clear. It certainly could be secondary to C. difficile given her recent hospitalizations and the fact that she is actively having C. difficile and was having diarrhea at home. There is also concerned she may have exhibited some seizure-like activity and given that she has a seizure disorder her antiepileptic management regimen has been titra anshul up by neurology. She did have some mucous plugging resulting in respiratory failure which has resolved. He stated mental status seems to be improving gradually. Patient was recently hospitalized in [place] 2. -Physical therapy, occupational therapy, and speech therapy have been ordered and plan to work with patient as her mental status improves and she is better able to follow commands. Patient should be receiving her hearing aide and dentures today from home, which should help with these. Considering the patient's altered mental status and slow improvement, she should not receive any benzodiazepines which may cause her to become further altered and subsequently slow her progression. Plan for today is to continue oral diet with honey thickened liquids and pured foods to see how she tolerates this, she will need to be spoon fed with assistance. She will continue to work with speech therapy on progressing diet. Continue work with PT and OT 2. Acute hypoxemic respiratory failure requiring intubation and mechanical ventilation -Patient has been extubated and doing well with a stable respiratory status. It was secondary to mucous plugging likely secondary to her decreased cognitive status -Patient has completed 7 days of Zosyn for suspected aspiration pneumonia. Zosyn has been discontinued 3. Oral intake NG tube has been removed and patient is currently on an oral diet with honey thickened liquids and pured foods. Patient requires spoon feeding with assista nce. Continue to work with speech therapy on progressing diet. 4. C. difficle colitis Patient completed full pending course of oral vancomycin 5. Anemia -Likely multifactorial, likely some element of dilution in addition to anemia of chronic disease. She is restricted received 2 units of PRBCs during this hospitalization is held onto them quite well H&H has been stable 6 Hypotension -Patient has remained normotensive and not requiring any medication at this time 7. Thrombocytopenia -Likely secondary to her acute infection does appear to be resolved at this time 8. History of Parkinsons -Continue home Sinemet 9. Stress Ulcer Prophylaxis -Patient no longer needs stress ulcer prophylaxis as she is no longer intubated. Discontinued famotidine. 10. DVT prophylaxis -Lovenox. She did have a duplex of the upper extremity that revealed a superficial venous thrombus however no evidence of any DVT. DISPOSITION: Inpatient pending improvement of mental status - Will adjust to ALC status today; pending placement - likely intermediate accountant nursing care if she fails to progress with PT VS, I&O, 24H, Fishbone Vital Signs/I&O Vital Signs Date Time Temp Pulse Resp B/P (MAP) Pulse Ox O2 Delivery O2 Flow Rate FiO2 11/28/18 10:00 98.6 97 20 101/48 (65) 95 Nasal Cannula 2.0 I&O- Last 24 Hours up to 6 AM 11/28/18 06:00 Intake Total 30 ml Balance 30 ml Laboratory Data 24H LABS Laboratory Tests 2 11/27/18 11:29: Bedside Glucose (Misc Panel) 133H 11/27/18 17:46: Bedside Glucose (Misc Panel) 79L 11/27/18 23:37: Bedside Glucose (Misc Panel) 94 11/28/18 05:48: Nucleated Red Blood Cells % (auto) 0.0, Anion Gap 6L, Glomerular Filtration Rate > 60.0, Calcium Level 8.8 11/28/18 06:06: Bedside Glucose (Misc Panel) 73L CBC/BMP Laboratory Tests 11/28/18 05:48 Microbiology Microbiology 11/22/18 Stool Occult Blood (YURIY) - Final, Complete 11/21/18 Urine Culture - Final, Complete Yeast Like Organism 11/19/18 Gram Stain - Final, Complete 11/19/18 Sputum Culture - Final, Complete 11/18/18 Gastrointestinal Tract Panel (PCR) - Final, Complete Clostridium Difficile A/B GME ATTESTATION GME ATTESTATION My faculty preceptor for this patient encounter was physically present during the encounter and was fully available. All aspects of the patient interview, examination, medical decision making process, and medical care plan development were reviewed and approved by the faculty preceptor. The faculty preceptor is aw are and concurs with the plan as stated in the body of this note and will attest to such by his/her cosignature. ATTENDING NOTE I, Cuba Patricia, have independently examined this patient and performed my own physical exam, as well as reviewed the documentation and edited where necessary. I have discussed in detail with the resident / student the findings and plan of treatment as documented by the resident / student and edited their note. I agree with their findings and treatment plan and have edited their documentation. I will continue to follow the patient during this hospital stay. YOBANY GIBSON PGY-1 Nov 28, 2018 11:09 CUBA PATRICIA MD Nov 28, 2018 15:28
[2018-11-28 14:00] VITALS: BP 124/49
[2018-11-28] MEDS ORDERED: diphenhydrAMINE 12.5MG/5ML ELIXIR UDC PO SCH (21:00)
[2018-11-28] MEDS: SINEMET 25-100 MG TAB PO SCH (21:07)
[2018-11-28] MEDS: ACETAMINOPHEN 325 MG/10.15 ML UDC NG PRN (21:08)
[2018-11-29] MEDS: ACETAMINOPHEN 325 MG/10.15 ML UDC NG PRN ×2 (01:04→09:03)
[2018-11-29 06:00] VITALS: BP 124/51
[2018-11-29] MEDS: HumaLOG INSULIN (NovoLOG) PER UNIT SC SCH ×5 (06:00→21:00)
[2018-11-29] MEDS: SODIUM CHLORIDE 0.9% INJ 10 ML SYR IV SCH (06:00)
[2018-11-29 06:36] LABS: HEMATOCRIT 31.8 % (36.0-47.0); HEMOGLOBIN 10.1 g/dl (12.0-15.5); MEAN CORPUSCULAR HEMOGLOBIN 29.8 pg (27.0-33.0); MEAN CORPUSCULAR HGB CONC 31.8 g/dl (32.0-36.5); MEAN CORPUSCULAR VOLUME 93.8 fl (80.0-96.0); PLATELET COUNT, AUTOMATED 413 10^3/uL (150-450); RED BLOOD COUNT 3.39 10^6/uL (4.00-5.40)
[2018-11-29 06:54] LABS: BLOOD UREA NITROGEN 7 MG/DL (7-18); CALCIUM LEVEL 8.9 MG/DL (8.8-10.2); CARBON DIOXIDE LEVEL 28 MEQ/L (21-32); CHLORIDE LEVEL 107 MEQ/L (98-107); CREATININE FOR GFR 0.65 MG/DL (0.55-1.30); GLOMERULAR FILTRATION RATE > 60.0 (>39); GLUCOSE, FASTING 81 MG/DL (70-100); POTASSIUM SERUM 4.2 MEQ/L (3.5-5.1); SODIUM LEVEL 140 MEQ/L (136-145)
--- NOTE | 2018-11-29 07:08 | REPVR ---
PROCEDURE INFORMATION: Exam: US Duplex Right Upper Extremity Veins, Limited Exam date and time: 11/29/2018 5:47 AM Clinical history: 73 years old, female; Injury or trauma; Injury history: Patient pulled out picc line; Initial encounter; Other injury to vessels; Right; Upper extremity, upper arm and shoulder level; Vessel not specified; Injury date: 11/29/18; Additional info: Picc pulled out by patient TECHNIQUE: Imaging protocol: Real-time Duplex ultrasound of the Right Upper Extremity with 2-D do scale, color Doppler flow and spectral waveform analysis with image documentation. Limited exam focused on the right upper extremity veins. COMPARISON: No relevant prior studies available. FINDINGS: Right deep veins: Unremarkable. Axillary and brachial veins are patent throughout without thrombus. Normal Doppler waveforms. Normal compressibility and/or augmentation response. Visualized internal jugular and subclavian veins are patent. Right superficial veins: Unremarkable. Visualized cephalic and basilic veins are patent without thrombus. Soft tissues: Unremarkable. IMPRESSION: No acute findings. No evidence of deep vein thrombosis. Electronically signed by: Gilbert Cervantes On 11/29/2018 07:08:01 AM
[2018-11-29] MEDS ORDERED: QUEtiapine FUMARATE 12.5 MG HALF-TAB PO SCH (09:00)
[2018-11-29] MEDS: ASPIRIN 325 MG TAB PO SCH (09:02)
[2018-11-29] MEDS: levETIRAcetam 250MG TABLET (KEPPRA) PO SCH ×2 (09:02→20:50)
[2018-11-29] MEDS: PHENYTOIN ER 100 MG CAP PO SCH ×2 (09:03→20:51)
[2018-11-29] MEDS: ENOXAPARIN 40 MG/0.4 ML SYRINGE (J1650) SC SCH (09:05)
[2018-11-29] MEDS: SINEMET 25-100 MG TAB PO SCH ×3 (09:05→20:51)
[2018-11-29] MEDS ORDERED: DEXTROSE 50% 50 ML SYRINGE IV PRN (11:00)
[2018-11-29] MEDS ORDERED: GLUCAGON FOR INJ 1 MG VIAL (J1610) SC PRN (11:00)
[2018-11-29] MEDS ORDERED: GLUCOSE 4 GM CHEW TABLET PO PRN (11:00)
[2018-11-29] MEDS ORDERED: QUEtiapine FUMARATE 25 MG TAB PO SCH (21:00)
[2018-11-29 22:00] VITALS: BP 128/51
[2018-11-30 06:00] VITALS: BP 124/71
[2018-11-30 06:57] LABS: HEMATOCRIT 33.2 % (36.0-47.0); HEMOGLOBIN 10.6 g/dl (12.0-15.5); MEAN CORPUSCULAR HEMOGLOBIN 29.9 pg (27.0-33.0); MEAN CORPUSCULAR HGB CONC 31.9 g/dl (32.0-36.5); MEAN CORPUSCULAR VOLUME 93.8 fl (80.0-96.0); PLATELET COUNT, AUTOMATED 459 10^3/uL (150-450); RED BLOOD COUNT 3.54 10^6/uL (4.00-5.40)
[2018-11-30 07:22] LABS: BLOOD UREA NITROGEN 6 MG/DL (7-18); CARBON DIOXIDE LEVEL 27 MEQ/L (21-32); CHLORIDE LEVEL 107 MEQ/L (98-107); CREATININE FOR GFR 0.68 MG/DL (0.55-1.30); GLOMERULAR FILTRATION RATE > 60.0 (>39); GLUCOSE, FASTING 82 MG/DL (70-100); POTASSIUM SERUM 3.8 MEQ/L (3.5-5.1); SODIUM LEVEL 141 MEQ/L (136-145)
[2018-11-30] MEDS: HumaLOG INSULIN (NovoLOG) PER UNIT SC SCH ×4 (07:30→21:00)
[2018-11-30] MEDS: levETIRAcetam 250MG TABLET (KEPPRA) PO SCH ×2 (08:54→21:02)
[2018-11-30] MEDS: SINEMET 25-100 MG TAB PO SCH ×3 (08:54→21:01)
[2018-11-30] MEDS: ASPIRIN 325 MG TAB PO SCH (08:54)
[2018-11-30] MEDS: ENOXAPARIN 40 MG/0.4 ML SYRINGE (J1650) SC SCH (08:55)
[2018-11-30] MEDS: PHENYTOIN ER 100 MG CAP PO SCH ×2 (08:55→21:02)
[2018-11-30] MEDS: ACETAMINOPHEN 325 MG/10.15 ML UDC NG PRN ×2 (09:06→17:11)
[2018-11-30 14:00] VITALS: BP 124/55
[2018-11-30] MEDS ORDERED: QUEtiapine FUMARATE 50 MG TAB PO SCH (21:00)
[2018-12-01] MEDS: ACETAMINOPHEN 325 MG/10.15 ML UDC NG PRN ×2 (03:36→20:08)
[2018-12-01 06:00] VITALS: BP 102/63
[2018-12-01 06:25] LABS: HEMATOCRIT 37.4 % (36.0-47.0); HEMOGLOBIN 11.8 g/dl (12.0-15.5); MEAN CORPUSCULAR HEMOGLOBIN 29.6 pg (27.0-33.0); MEAN CORPUSCULAR HGB CONC 31.6 g/dl (32.0-36.5); MEAN CORPUSCULAR VOLUME 93.7 fl (80.0-96.0); PLATELET COUNT, AUTOMATED 370 10^3/uL (150-450); RED BLOOD COUNT 3.99 10^6/uL (4.00-5.40); WHITE BLOOD COUNT 5.6 10^3/uL (4.0-10.0)
[2018-12-01 06:49] LABS: BLOOD UREA NITROGEN 7 MG/DL (7-18); CARBON DIOXIDE LEVEL 27 MEQ/L (21-32); CHLORIDE LEVEL 109 MEQ/L (98-107); CREATININE FOR GFR 0.73 MG/DL (0.55-1.30); GLOMERULAR FILTRATION RATE > 60.0 (>39); GLUCOSE, FASTING 81 MG/DL (70-100); POTASSIUM SERUM 3.9 MEQ/L (3.5-5.1); SODIUM LEVEL 144 MEQ/L (136-145)
[2018-12-01] MEDS: HumaLOG INSULIN (NovoLOG) PER UNIT SC SCH ×4 (07:30→21:00)
[2018-12-01] MEDS: ENOXAPARIN 40 MG/0.4 ML SYRINGE (J1650) SC SCH (09:05)
[2018-12-01] MEDS: PHENYTOIN ER 100 MG CAP PO SCH ×2 (09:05→20:08)
[2018-12-01] MEDS: levETIRAcetam 250MG TABLET (KEPPRA) PO SCH ×2 (09:05→20:08)
[2018-12-01] MEDS: ASPIRIN 325 MG TAB PO SCH (09:05)
[2018-12-01] MEDS: SINEMET 25-100 MG TAB PO SCH ×3 (09:05→20:07)
[2018-12-01] MEDS: QUEtiapine FUMARATE 100 MG TAB PO SCH (20:07)
[2018-12-01] MEDS: diphenhydrAMINE 50 MG CAP PO PRN (22:36)
[2018-12-02 05:17] VITALS: BP 117/68
[2018-12-02 06:28] LABS: HEMATOCRIT 36.4 % (36.0-47.0); HEMOGLOBIN 11.4 g/dl (12.0-15.5); MEAN CORPUSCULAR HEMOGLOBIN 29.3 pg (27.0-33.0); MEAN CORPUSCULAR HGB CONC 31.3 g/dl (32.0-36.5); MEAN CORPUSCULAR VOLUME 93.6 fl (80.0-96.0); PLATELET COUNT, AUTOMATED 405 10^3/uL (150-450); RED BLOOD COUNT 3.89 10^6/uL (4.00-5.40); WHITE BLOOD COUNT 5.1 10^3/uL (4.0-10.0)
[2018-12-02 06:43] LABS: BLOOD UREA NITROGEN 9 MG/DL (7-18); CALCIUM LEVEL 8.6 MG/DL (8.8-10.2); CARBON DIOXIDE LEVEL 26 MEQ/L (21-32); CHLORIDE LEVEL 109 MEQ/L (98-107); CREATININE FOR GFR 0.82 MG/DL (0.55-1.30); GLOMERULAR FILTRATION RATE > 60.0 (>39); GLUCOSE, FASTING 126 MG/DL (70-100); POTASSIUM SERUM 4.3 MEQ/L (3.5-5.1); SODIUM LEVEL 141 MEQ/L (136-145)
[2018-12-02] MEDS ORDERED: diphenhydrAMINE INJ 50MG/ML VIAL (J1200) IV PRN (06:45)
[2018-12-02] MEDS ORDERED: diphenhydrAMINE 25 MG CAP PO PRN (07:00)
[2018-12-02] MEDS: ASPIRIN 325 MG TAB PO SCH (08:09)
[2018-12-02] MEDS: PHENYTOIN ER 100 MG CAP PO SCH ×2 (08:09→20:34)
[2018-12-02] MEDS: ENOXAPARIN 40 MG/0.4 ML SYRINGE (J1650) SC SCH (08:09)
[2018-12-02] MEDS: ACETAMINOPHEN 325 MG/10.15 ML UDC NG PRN ×2 (08:10→20:33)
[2018-12-02] MEDS: levETIRAcetam 250MG TABLET (KEPPRA) PO SCH ×2 (08:10→20:33)
[2018-12-02] MEDS: SINEMET 25-100 MG TAB PO SCH ×3 (08:10→20:33)
[2018-12-02] MEDS: HumaLOG INSULIN (NovoLOG) PER UNIT SC SCH ×4 (08:11→21:00)
[2018-12-02 14:35] VITALS: BP 104/40
[2018-12-02] MEDS: QUEtiapine FUMARATE 100 MG TAB PO SCH (20:33)
[2018-12-02] MEDS: diphenhydrAMINE 50 MG CAP PO PRN (20:33)
[2018-12-03 06:00] VITALS: BP 110/56
[2018-12-03 06:49] LABS: HEMOGLOBIN 10.7 g/dl (12.0-15.5); MEAN CORPUSCULAR HEMOGLOBIN 29.8 pg (27.0-33.0); MEAN CORPUSCULAR HGB CONC 31.5 g/dl (32.0-36.5); MEAN CORPUSCULAR VOLUME 94.7 fl (80.0-96.0); PLATELET COUNT, AUTOMATED 380 10^3/uL (150-450); RED BLOOD COUNT 3.59 10^6/uL (4.00-5.40); WHITE BLOOD COUNT 5.2 10^3/uL (4.0-10.0)
[2018-12-03 07:20] LABS: BLOOD UREA NITROGEN 9 MG/DL (7-18); CALCIUM LEVEL 8.5 MG/DL (8.8-10.2); CARBON DIOXIDE LEVEL 27 MEQ/L (21-32); CHLORIDE LEVEL 106 MEQ/L (98-107); CREATININE FOR GFR 0.65 MG/DL (0.55-1.30); GLOMERULAR FILTRATION RATE > 60.0 (>39); GLUCOSE, FASTING 100 MG/DL (70-100); SODIUM LEVEL 140 MEQ/L (136-145)
[2018-12-03] MEDS: HumaLOG INSULIN (NovoLOG) PER UNIT SC SCH ×4 (07:30→20:41)
[2018-12-03] MEDS: ASPIRIN 325 MG TAB PO SCH (09:08)
[2018-12-03] MEDS: ENOXAPARIN 40 MG/0.4 ML SYRINGE (J1650) SC SCH (09:08)
[2018-12-03] MEDS: levETIRAcetam 250MG TABLET (KEPPRA) PO SCH ×2 (09:09→20:23)
[2018-12-03] MEDS: SINEMET 25-100 MG TAB PO SCH ×3 (09:09→20:24)
[2018-12-03] MEDS: PHENYTOIN ER 100 MG CAP PO SCH ×2 (09:09→20:24)
[2018-12-03] MEDS: CEFDINIR 300 MG CAP (OMNICEF) PO SCH (20:23)
[2018-12-03] MEDS: ACETAMINOPHEN 325 MG/10.15 ML UDC NG PRN (20:23)
[2018-12-03] MEDS: diphenhydrAMINE 50 MG CAP PO PRN (20:24)
[2018-12-03] MEDS: QUEtiapine FUMARATE 100 MG TAB PO SCH (20:24)
[2018-12-04 06:00] VITALS: BP 116/57
[2018-12-04 06:15] LABS: HEMATOCRIT 34.7 % (36.0-47.0); HEMOGLOBIN 10.9 g/dl (12.0-15.5); MEAN CORPUSCULAR HEMOGLOBIN 29.3 pg (27.0-33.0); MEAN CORPUSCULAR HGB CONC 31.4 g/dl (32.0-36.5); MEAN CORPUSCULAR VOLUME 93.3 fl (80.0-96.0); PLATELET COUNT, AUTOMATED 374 10^3/uL (150-450); RED BLOOD COUNT 3.72 10^6/uL (4.00-5.40); WHITE BLOOD COUNT 5.8 10^3/uL (4.0-10.0)
[2018-12-04 06:50] LABS: BLOOD UREA NITROGEN 10 MG/DL (7-18); CALCIUM LEVEL 8.9 MG/DL (8.8-10.2); CARBON DIOXIDE LEVEL 27 MEQ/L (21-32); CHLORIDE LEVEL 108 MEQ/L (98-107); CREATININE FOR GFR 0.68 MG/DL (0.55-1.30); GLOMERULAR FILTRATION RATE > 60.0 (>39); GLUCOSE, FASTING 97 MG/DL (70-100); POTASSIUM SERUM 4.1 MEQ/L (3.5-5.1); SODIUM LEVEL 141 MEQ/L (136-145)
[2018-12-04] MEDS: HumaLOG INSULIN (NovoLOG) PER UNIT SC SCH ×4 (07:30→20:35)
[2018-12-04] MEDS: SINEMET 25-100 MG TAB PO SCH ×3 (08:43→20:21)
[2018-12-04] MEDS: PHENYTOIN ER 100 MG CAP PO SCH ×2 (08:44→20:18)
[2018-12-04] MEDS: CEFDINIR 300 MG CAP (OMNICEF) PO SCH ×2 (08:44→20:19)
[2018-12-04] MEDS: ASPIRIN 325 MG TAB PO SCH (08:44)
[2018-12-04] MEDS: levETIRAcetam 250MG TABLET (KEPPRA) PO SCH ×2 (08:44→20:19)
[2018-12-04] MEDS: ENOXAPARIN 40 MG/0.4 ML SYRINGE (J1650) SC SCH (08:45)
[2018-12-04 20:10] VITALS: BP 117/46
[2018-12-04] MEDS: QUEtiapine FUMARATE 100 MG TAB PO SCH (20:20)
[2018-12-05] MEDS: ACETAMINOPHEN 325 MG/10.15 ML UDC NG PRN ×2 (02:46→11:19)
[2018-12-05 05:50] VITALS: BP 116/49
--- NOTE | 2018-12-05 10:33 | IPNPDOC ---
Date Seen The patient was seen on 12/05/18. Progress Note SUBJECTIVE: Patient is a 73-year-old female with history of PRESS. She initially presented for change in mental status and respiratory failure, status post extubation, currently undergoing treatment for C. difficile colitis. Patient is seen morning laying comfortably in bed.. She is much more alert and responsive than she has been previously. She is answering questions appropriately and appears to be oriented. She does have a sitter in her room currently, but the sitter reports that she has not tried to get out of bed or appeared confused this morning. She has no complaints of shortness of breath, nausea, vomiting, abdominal pain today. OBJECTIVE PHYSICAL EXAMINATION: VITAL SIGNS: Please see below. GENERAL: Awake. She does not appear to be in acute distress. She is lying in bed ., Calm and cooperative and pleasant. HEENT: Atraumatic, normocephalic. Eyes are nonicteric. Trachea is midline. Nasogastric tube is in place CARDIOVASCULAR: Normal S1, S2. Regular rate and rhythm. No clicks rubs or murmurs. RESPIRATORY: Clear vesicular breath sounds bilaterally. Symmetric chest rise. No wheezes, rhonchi, or rales ABDOMINAL: Obese, soft, nondistended. EXTREMITIES: Trace edema in bilateral lower extremities. Bilateral upper extremities/hands appear slightly edematous. Full and equal pulses in bilateral upper and lower extremities NEUROLOGICAL: Pt is alert but not able to follow commands, unable to assess due to mental status function. She does move all 4 extremities spontaneously. PSYCHOLOGICAL: Unable to assess due to mental status function LABORATORY DATA, IMAGING STUDIES, MICROBIOLOGY: Please see below. DVT prophylaxis ordered?: Lovenox ASSESSMENT AND PLAN: This is a 73-year-old female with history of PRES . She was initially presented for change in mental status and respiratory failure, status post extubation, currently undergoing treatment for C. difficile colitis. PROBLEMS: 1. Acute on chronic metabolic encephalopathy - possibly 2/2 dementia, history of recent refractory seizures, history of prior hemorrhagic strokes, recent history of UTI - The patient has been worked up for seizures and other organic causes for her confusion. All workup has been negative except for UA, concerning for UTI. She was treated empirically with oral Cefdinir. -Patient continues to work with speech, physical, occupational therapy daily Considering the patient's altered mental status and slow improvement, she should not receive any benzodiazepines which may cause her to become further altered and subsequently slow her progression. 2. Acute hypoxemic respiratory failure requiring intubation and mechanical ventilation -Patient has been extubated and doing well with a stable respiratory status. It was secondary to mucous plugging likely secondary to her decreased cognitive status -Patient has completed 7 days of Zosyn for suspected aspiration pneumonia. Zosyn has been discontinued 3. Oral intake Speech therapy evaluation recommendations: Continue pured solid, continue thin liquids via straw sips, assist patient for upright positioning, provide hand over hand assistance for straw sips and feet patient with spoon. 4. C. difficle colitis Patient completed full pending course of oral vancomycin. Diarrhea appears to be resolving 5. Anemia -Likely multifactorial, likely some element of dilution in addition to anemia of chronic disease. H&H has been stable 6 Hypotension -Patient has remained normotensive and not requiring any medication at this time 7. Thrombocytopenia -Likely secondary to her acute infection does appear to be resolved at this time 8. History of Parkinsons -Continue home Sinemet 9. Stress Ulcer Prophylaxis -Patient no longer needs stress ulcer prophylaxis as she is no longer intubated. Discontinued famotidine. 10. DVT prophylaxis -Lovenox. She did have a duplex of the upper extremity that revealed a superficial venous thrombus however no evidence of any DVT. DISPOSITION: Inpatient pending improvement of mental status -Continues as ALC status today; pending placement VS, I&O, 24H, [facility] Vital Signs/I&O Vital Signs Date Time Temp Pulse Resp B/P (MAP) Pulse Ox O2 Delivery O2 Flow Rate FiO2 12/05/18 05:50 98.1 75 18 116/49 (71) 95 Room Air I&O- Last 24 Hours up to 6 AM 12/05/18 06:00 Intake Total 990 ml Output Total 750 ml Balance 240 ml Laboratory Data 24H LABS Laboratory Tests 2 12/04/18 11:42: Bedside Glucose (Misc Panel) 103 12/04/18 16:37: Bedside Glucose (Misc Panel) 83 12/04/18 20:24: Bedside Glucose (Misc Panel) 102 12/05/18 05:53: Bedside Glucose (Misc Panel) 85 Microbiology Microbiology 12/02/18 Urine Culture, Received Pending GME ATTESTATION GME ATTESTATION I saw and evaluated the patient. I agree with the findings and plan of care as documented in the above note DASHAWN BREWSTER MD Dec 05, 2018 10:33 NORY HICKEY MD Dec 05, 2018 15:38
[2018-12-05] MEDS: HumaLOG INSULIN (NovoLOG) PER UNIT SC SCH ×4 (11:03→20:58)
[2018-12-05] MEDS: CEFDINIR 300 MG CAP (OMNICEF) PO SCH ×2 (11:16→20:55)
[2018-12-05] MEDS: SINEMET 25-100 MG TAB PO SCH ×3 (11:17→20:55)
[2018-12-05] MEDS: ASPIRIN 325 MG TAB PO SCH (11:17)
[2018-12-05] MEDS: levETIRAcetam 250MG TABLET (KEPPRA) PO SCH ×2 (11:17→20:55)
[2018-12-05] MEDS: ENOXAPARIN 40 MG/0.4 ML SYRINGE (J1650) SC SCH (11:18)
[2018-12-05] MEDS: PHENYTOIN ER 100 MG CAP PO SCH ×2 (11:20→20:55)
[2018-12-05] MEDS ORDERED: KEPP250T5 PO (15:26)
[2018-12-05] MEDS ORDERED: QUET1TAB8 PO (15:26)
[2018-12-05] MEDS ORDERED: CIPR500T3 PO (15:26)
[2018-12-05] MEDS ORDERED: DILA100C PO (15:26)
[2018-12-05] MEDS: QUEtiapine FUMARATE 100 MG TAB PO SCH (20:55)
[2018-12-06 06:00] VITALS: BP_SYST 113; BP_SYST 141; BP_DIAS 67; BP_DIAS 85
[2018-12-06] MEDS: HumaLOG INSULIN (NovoLOG) PER UNIT SC SCH (07:30)
[2018-12-06] MEDS: SINEMET 25-100 MG TAB PO SCH (09:32)
[2018-12-06] MEDS: PHENYTOIN ER 100 MG CAP PO SCH (09:32)
[2018-12-06] MEDS: ASPIRIN 325 MG TAB PO SCH (09:33)
[2018-12-06] MEDS: levETIRAcetam 250MG TABLET (KEPPRA) PO SCH (09:33)
[2018-12-06] MEDS: ENOXAPARIN 40 MG/0.4 ML SYRINGE (J1650) SC SCH (09:33)
[2018-12-06] MEDS: CEFDINIR 300 MG CAP (OMNICEF) PO SCH (09:33)
[2018-12-06] MEDS ORDERED: CEFD1CAP8 PO (17:12)
--- NOTE | 2018-12-06 17:51 | DS.PDOC ---
Discharge Summary General Date of Admission Nov 16, 2018 at 13:43 Date of Discharge 12/06/2018 Attending Physician: NORY HICKEY MD Discharge Summary PROCEDURES PERFORMED DURING STAY: None. ADMITTING DIAGNOSES: 1. Seizure activity 2. Posterior Reversible Encephalopathy Syndrome 3. Possible aspiration PNA DISCHARGE DIAGNOSES: 1. Acute delirium 2/2 PRES vs UTI COMPLICATIONS/CHIEF COMPLAINT: Seizure Scondary To Subtherapeutic Anticonvulsant. HISTORY OF PRESENT ILLNESS: Patient is a 73 year old female who presented to the [facility] Emergency department via EMS accompanied by her sister. The entirety of the history was ascertained from the patients sister as the patient was nonverbal. The patient had recently arrived in [place]. Previously she was in [place] with her son who is her health care proxy. The patients sister had stated that she was previously hospitalized in [place] for Posterior Reversible encephalopathy Syndrome. The patients sister is unsure of the details surrounding the patients original presentation when she was hospitalized in [place]. 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 The patient was started on Valproic acid while in [place] and completed rehab. The patient was then discharged on returned to [facility]. According to the patients sister the patient was doing well when she returned. She was able to ambulate with assistance due to her vision loss and she was able to speak coherently. On November 13 2018, the patient was taken to the ER where she was diagnosed with a UTI. She had received an abdominal/pelvis CT at the time which demonstrated pancolitis and a small enhancing mass in the upper pole of the left kidney concerning for renal cell neoplasm however, no evidence of metastatic disease. She was treated with Cipro and Flagyl and discharged. The patients sister stated that since that time the patient appeared to be doing well. The patients sister states yesterday at 10:30 she had spoken with the patient and she appeared to be doing well. At around 0330 hrs the patients sister stated that the patient had called her stating that she was "feeling odd" and stated that she "couldn't speak very well" The patients sister had stated that the patient was not slurring her speech. The sister had arrived to find the patient sitting up with "twitching of her body" and had stated that it looked like a seizure. The patient remained awake during this event and according to the sister was able to comprehend and follow commands. EMS was called and upon arriv al the patient started "twitching more violently". The patient was subsequently taken to [facility] ER. At the ER the patient was found to be nonresponsive and she was given 400mg Valproate IV. According to the ER provider the patient had shown improvement although was still non-verbal. The patient received a head CT which demonstrated no acute intracranial hemorrhage or acute ischemic infarction. There were large areas of hypoattenuation in the bilateral posterior cerebral hemispheres as well as edema consistent with PRES. Hospitalist service was subsequently contacted for further evaluation and management. On evaluation in the ER the patient remained nonverbal. She was arousable and followed commands. Her head was turned to the left with gaze to the left as well. She had hypertonic jerking motions of her left upper and lower extremity that was worse distally. Neurology was contacted for consultation and patient was given IV Ativan. A stat MRI was ordered in addition to CT angiography of the head and neck. HOSPITAL COURSE: The patient was admitted with questionable seizure activity, and was unresponsive for some period of time attributed to acute metabolic encephalopathy. She was resuscitated and NG tube was placed for feeding. She was given valproic acid for cessation of seizure activity, and switched to Keppra. 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 On hospital day 2, the patient was in acute hypoxic respiratory failure and was transferred to the ICU, where she was intubated. She was continued on her antiepileptic medication while sedated and once appropriate, she was weaned off ventilation and her mental status improved. Her mental status gradually improved over the rest of her hospital stay. She was found to have Clostridium difficile infection which was treated with oral Vancomycin and also found to have UTI treated with oral cefdinir. On hospital day 12, her mental status improved enough to remove her NG tube and she gradually improved thereaf ter, returning to what her family reported was her baseline mentation. She was evaluated by speech therapy, who recommended pured solids, thin liquids with straw sips, assisting patient for upright positioning, providing hand over hand assistance for straw sips and feeding patient with a spoon. DISCHARGE MEDICATIONS: Please see below. ALLERGIES: Please see below. PHYSICAL EXAMINATION ON DISCHARGE: VITAL SIGNS: Please see below. GENERAL: Awake. She does not appear to be in acute distress. Sitting at the bedside., Calm and cooperative and pleasant. HEENT: Atraumatic, normocephalic. Eyes are nonicteric. Trachea is midline. CARDIOVASCULAR: Normal S1, S2. Regular rate and rhythm. No clicks rubs or murmurs. RESPIRATORY: Clear breath sounds bilaterally. Symmetric chest rise. No wheezes, rhonchi, or rales ABDOMINAL: Obese, soft, nondistended., Normal bowel sounds, no masses EXTREMITIES: Trace edema in bilateral lower extremities. Full and equal pulses in bilateral upper and lower extremities NEUROLOGICAL: Patient is hard of hearing and blind. Otherwise, no focal deficits appreciated PSYCHOLOGICAL: Awake, alert and oriented 3 LABORATORY DATA: Please see below. IMAGING: REASON: Aspiration. COMPARISON: 05/20/2007, the latest prior. The technique utilized in obtaining the radiograph has magnified the cardiac silhouette and accentuated the interstitial markings. FINDINGS: The superior mediastinal structures are midline. The cardiac silhouette is unremarkable in size, shape, and position. The diaphragmatic surfaces of the lungs are regular, and the costophrenic angles are clear. The pulmonary matos are clear. The imaged osseous structures are intact. IMPRESSION: There is no acute cardiopulmonary disease. No significant change from the prior exam other than technique. Electronically Signed by Rajat Rondon DO 11/16/2018 09 PROCEDURE INFORMATION: Exam: CT Head Without Contrast Exam date and time: 11/16/2018 5:58 AM Clinical history: 73 years old, female; Other: Seizure; Additional info: Status epilep TECHNIQUE: Imaging protocol: Computed tomography of the head without contrast. Radiation optimization: All CT scans at this facility use at least one of these dose optimization techniques: automated exposure control; mA and/or kV adjustment per patient size (includes targeted exams where dose is matched to clinical indication); or iterative reconstruction. COMPARISON: No relevant prior studies available. FINDINGS: Brain: There are well-demarcated areas of parenchymal hypoattenuation involving the bilateral parietal and occipital lobes. No evidence of acute intracranial hemorrhage or acute ischemic infarction within constraints of axial only imaging technique. Mild parenchymal volume loss. Questionable small amount of encephalomalacia and gliosis in the more anterior aspect of the left frontal lobe, difficult to ascertain for certain given axial technique. Ventricles: No ventriculomegaly. Bones/joints: No acute fracture. Sinuses: Visualized sinuses are unremarkable. No fluid levels. Mastoid air cells: Visualized mastoid air cells are well aerated. Soft tissues: Unremarkable. IMPRESSION: 1. No acute intracranial hemorrhage or convincingly acute ischemic infarction. 2. Large areas of hypoattenuation in the bilateral posterior cerebral hemispheres is nonspecific and may be the sequelae of subacute to chronic infarction (arterial or venous) or trauma. Edema as can be seen with posterior reversible encephalopathic syndrome it is possible in the appropriate clinical setting. Consider brain MRI for further evaluation. Electronically signed by: Arnaud Tee On 11/16/2018 07:11:57 AM PROCEDURE INFORMATION: Exam: CT Angiography Head With Contrast Exam date and time: 11/16/2018 8:32 AM Clinical history: 73 years old, female; Pain; Headache; Additional info: Evaluate for large vessel occlusion TECHNIQUE: Imaging protocol: Computed tomography angiography of the head with intravenous contrast. 3D rendering: MIP and 3D reconstructed images were created and reviewed. Radiation optimization: All CT scans at this facility use at least one of these dose optimization techniques: automated exposure control; mA and/or kV adjustment per patient size (includes targeted exams where dose is matched to clinical indication); or iterative reconstruction. Contrast material: ISOVUE 370; Contrast volume: 75 ml; Contrast route: IV; COMPARISON: CT Head without contrast 11/16/2018 6:04 AM FINDINGS: There is no high-grade stenosis, occlusion, dissection, or other acute abnormality of the distal internal carotid arteries, basilar artery, anterior, middle, or posterior cerebral arteries. No evidence of high flow vascular malformation. 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 Mild intracranial atherosclerosis. IMPRESSION: No high-grade stenosis or occlusion of the major [place] vasculature. 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 Electronically signed by: Arnaud Tee On 11/16/2018 09:09:59 AM PROCEDURE INFORMATION: Exam: CT Angiography Neck With Contrast Exam date and time: 11/16/2018 8:32 AM Clinical history: 73 years old, female; Pain; Headache; Additional info: Possible large vessel occlusion TECHNIQUE: Imaging protocol: Computed tomography angiography of the neck with intravenous contrast. 3D rendering: MIP and 3D reconstructed images were created and reviewed. Radiation optimization: All CT scans at this facility use at least one of these dose optimization techniques: automated exposure control; mA and/or kV adjustment per patient size (includes targeted exams where dose is matched to clinical indication); or iterative reconstruction. Contrast material: ISOVUE 370; Contrast volume: 75 ml; Contrast route: IV; COMPARISON: No relevant prior studies available. FINDINGS: There is no high-grade stenosis, occlusion, dissection, aneurysm, or other acute abnormality of the cervical carotid or vertebral arteries. Moderate calcified and noncalcified atherosclerotic plaque along the aortic arch mild atherosclerosis at the carotid bifurcations, with mild, less than 50% narrowing. Upper lung centrilobular emphysema, and surgical changes in the right upper lung with nodular soft tissue again present measuring up to 1.8 cm in the suprahilar region. IMPRESSION: No high-grade stenosis or occlusion of the cervical carotid or vertebral arteries. Surgical changes in the right upper lobe with nodular soft tissue in the suprahilar region. PROGNOSIS: Fair ACTIVITY: As tolerated. DIET: As tolerated DISCHARGE PLAN: Marcos Damian DISPOSITION: 72 Xfer Other. DISCHARGE INSTRUCTIONS: 1. Please continue oral antibiotic Cefdinir for 4 more days ITEMS TO FOLLOWUP ON ON OUTPATIENT: 1. None DISCHARGE CONDITION: Stable. Vital Signs/I&Os Vital Signs Date Time Temp Pulse Resp B/P (MAP) Pulse Ox O2 Delivery O2 Flow Rate FiO2 12/06/18 06:00 96.4 74 20 113/85 (94) 96 Room Air I&O- Last 24 Hours up to 6 AM 12/06/18 06:00 Intake Total 930 ml Output Total 500 ml Balance 430 ml Laboratory Data Labs 24H Laboratory Tests 2 12/05/18 17:38: Bedside Glucose (Misc Panel) 104 12/05/18 20:57: Bedside Glucose (Misc Panel) 94 12/06/18 07:10: Bedside Glucose (Misc Panel) 89 FSBS Laboratory Tests Test 12/05/18 17:38 12/05/18 20:57 12/06/18 07:10 Range/Units Bedside Glucose (Misc Panel) 104 94 89 83-110 MG/DL Microbiology Microbiology 12/02/18 Urine Culture - Final, Complete Escherichia Coli Discharge Medications Scheduled Atorvastatin Calcium (Atorvastatin Calcium) 40 Mg Tablet, 40 MG PO QHS, (Reported) Brinzolamide/Brimonidine Tart (Simbrinza 1%-0.2% Eye Drops) 8 Ml Drops.susp, 1 DROP OS TID, (Reported) Carbidopa/Levodopa (Sinemet 25-100 mg Tablet) 1 Each Tablet, 2 TAB PO TID, (Reported) Cefdinir (Cefdinir) 300 Mg Capsule, 300 MG PO BID Duloxetine Hcl (Cymbalta) 60 Mg Capsule.dr, 60 MG PO DAILY, (Reported) Latanoprost (Xalatan) 0.005% 2.5ML Drops, 1 DROP OU QHS, (Reported) Levetiracetam (Keppra) 250 Mg Tablet, 750 MG PO BID Methyl Salicylate/Menthol (Salonpas Patch) 1 Each Adh..patch, 2 PATCH TOP DAILY, (Reported) APPLY TO AREA OF PAIN, REMOVE IN THE EVENING Netarsudil Mesylate (Rhopressa) 2.5 Ml Drops, 1 DROP OS DAILY, (Reported) Phenytoin Sodium Extended (Dilantin) 100 Mg Capsule, 200 MG PO BID Quetiapine Fumarate (Quetiapine Fumarate) 100 Mg Tablet, 100 MG PO QHS Sennosides (Senokot) 8.6 Mg Tablet, 17.2 MG PO QHS, (Reported) Umeclidinium Brm/Vilanterol Tr (Anoro Ellipta 62.5-25 Mcg INH) 1 Each Blst.w.dev, 1 PUFF PO DAILY, (Reported) Vitamin D (Vitamin D3) 1,000 Unit Tablet, 1,000 UNITS PO DAILY, (Reported) TAKE AFTER LUNCH Scheduled PRN Acetaminophen (Tylenol Extra Strength) 500 Mg Tablet, 1,000 MG PO TID PRN for PAIN, (Reported) Ondansetron (Ondansetron Odt) 4 Mg Tab.rapdis, 4 MG PO Q6H PRN for NAUSEA OR VOMITING, (Reported) Sennosides (Senokot) 8.6 Mg Tablet, 8.6 MG PO DAILY PRN for CONSTIPATION, (Reported) Allergies Coded Allergies: No Known Allergies (Unverified , 11/13/18) GME ATTESTATION GME ATTESTATION I saw and evaluated the patient. I agree with the findings and plan of care as documented in the documenters note. I spent 45 minutes coordinating this patient's discharge. DASHAWN BREWSTER MD Dec 06, 2018 17:51 NORY HICKEY MD Dec 07, 2018 10:54
== END 2018-12-06 11:29 | disposition other institution (70) | DRG 70 ==
LOC: M ED 05:13 → M ED INP 13:43 → M ICU 15:22 → M MS5PR 11-22 17:30
PROVIDERS: ADMIT Internal Medicine; ATTEND Internal Medicine
PROC: 5A1945Z Respiratory Ventilation, 24-96 Consecutive Hours (ICD-10-PCS; principal; 2018-11-17)
PROC: 02HV33Z Insertion of Infusion Device into Superior Vena Cava, Percutaneous Approach (ICD-10-PCS; 2018-11-18)
PROC: 30233N1 Transfusion of Nonautologous Red Blood Cells into Peripheral Vein, Percutaneous Approach (ICD-10-PCS; 2018-11-22)
DX: I67.83 Posterior reversible encephalopathy syndrome (principal); J96.01 Acute respiratory failure with hypoxia; G93.6 Cerebral edema; N39.0 Urinary tract infection, site not specified; E87.2 Acidosis; I24.8 Other forms of acute ischemic heart disease; J98.11 Atelectasis; A04.72 Enterocolitis due to Clostridium difficile, not specified as recurrent; J90 Pleural effusion, not elsewhere classified; R56.9 Unspecified convulsions; G93.41 Metabolic encephalopathy; Z79.899 Other long term (current) drug therapy; D69.6 Thrombocytopenia, unspecified; E83.42 Hypomagnesemia; E87.6 Hypokalemia; G20 Parkinson's disease; D63.8 Anemia in other chronic diseases classified elsewhere

== ENCOUNTER → 2019-07-07 | Outpatient (CLI) | payer MEDICARE, MEDICAID ==
[~2019-07-07] MED LIST changes: +ACET-897 PO; +ATOR40TA75 PO; +CEFD1CAP8 PO; +CHOL100029 PO; +CIPR500T3 PO; +DILA100C PO; +KEPP250T5 PO; +METR-265 PO; +QUET100T2 PO; +SALOPAD4 TOP; +SENO8.6T5 PO
[2019-07-07 11:21] LABS: BASO % 0.3 % (0.0-1.0); EOS # 0.1 10^3/uL (0.0-0.5); EOS % 1.4 % (0.0-3.0); HEMATOCRIT 37.4 % (36.0-47.0); HEMOGLOBIN 11.9 g/dl (12.0-15.5); LYMPH % 30.7 % (24.0-44.0); MEAN CORPUSCULAR HEMOGLOBIN 28.1 pg (27.0-33.0); MEAN CORPUSCULAR HGB CONC 31.8 g/dl (32.0-36.5); MEAN CORPUSCULAR VOLUME 88.4 fl (80.0-96.0); MONO # 0.7 10^3/uL (0.0-0.8); MONO % 11.1 % (0.0-5.0); NEUTROPHILS # 3.7 10^3/uL (1.5-8.5); PLATELET COUNT, AUTOMATED 132 10^3/uL (150-450); RED BLOOD COUNT 4.23 10^6/uL (4.00-5.40); WHITE BLOOD COUNT 6.6 10^3/uL (4.0-10.0)
[2019-07-07 11:54] LABS: APPEARANCE, URINE CLEAR (CLEAR); BACTERIA, URINE AUTO NEGATIVE (NEGATIVE); BILIRUBIN, URINE AUTO NEGATIVE (NEGATIVE); BLOOD, URINE BLOOD NEGATIVE (NEGATIVE); COLOR, URINE STRAW (YELLOW); GLUCOSE, URINE (UA) AUTO NEGATIVE (NEGATIVE); KETONE, URINE AUTO NEGATIVE (NEGATIVE); LEUKOCYTE ESTERASE, URINE AUTO TRACE (NEGATIVE); NITRITE, URINE AUTO NEGATIVE (NEGATIVE); PROTEIN, URINE AUTO NEGATIVE (NEGATIVE); RBC, URINE AUTO 0 /HPF (0-3); SPECIFIC GRAVITY URINE AUTO 1.008 (1.002-1.035); SQUAMOUS EPITHELIAL CELL UR AU 0 /HPF (0-6); UROBILINOGEN, URINE AUTO 0.2 mg/dL (0.0-2.0); WBC, URINE AUTO 2 /HPF (0-3)
[2019-07-07 12:43] LABS: ALBUMIN 2.9 GM/DL (3.2-5.2); BILIRUBIN,TOTAL 0.4 MG/DL (0.2-1.0); CALCIUM LEVEL 9.3 MG/DL (8.8-10.2); CHOLESTEROL RISK RATIO 2.955 (<5); CREATININE FOR GFR 1.04 MG/DL (0.55-1.30); FREE T4 0.8 NG/DL (0.76-1.46); GLOMERULAR FILTRATION RATE 55.5 (>39); POTASSIUM SERUM 4.7 MEQ/L (3.5-5.1); THYROID STIMULATING HORMONE 3.57 uIU/ML (0.358-3.740); TOTAL 25(OH) VITAMIN D 37.3 NG/ML (30.0-100.0); TOTAL PROTEIN 6.8 GM/DL (6.4-8.2)
[2019-07-07 13:25] LABS: HEMOGLOBIN A1c 6.4 %
== END ==
LOC: M LAB 10:01
PROVIDERS: ATTEND Physician Assistant
DX: I67.83 Posterior reversible encephalopathy syndrome (principal); G40.909 Epilepsy, unspecified, not intractable, without status epilepticus; H91.93 Unspecified hearing loss, bilateral; E11.9 Type 2 diabetes mellitus without complications; E66.3 Overweight; Z68.28 Body mass index [BMI] 28.0-28.9, adult; H54.7 Unspecified visual loss; Z79.899 Other long term (current) drug therapy

== ENCOUNTER → 2019-08-01 | Outpatient (CLI) | payer MEDICARE, MEDICAID ==
[2019-08-01 17:12] LABS: CALCIUM LEVEL 9.4 MG/DL (8.8-10.2); CREATININE FOR GFR 1.07 MG/DL (0.55-1.30); GLOMERULAR FILTRATION RATE 53.7 (>39); POTASSIUM SERUM 4.9 MEQ/L (3.5-5.1)
== END ==
LOC: M WUC 13:20
PROVIDERS: ATTEND Nurse Practitioner Family
DX: N28.89 Other specified disorders of kidney and ureter (principal)

== ENCOUNTER → 2019-08-07 | Outpatient (CLI) | payer MEDICARE, MEDICAID ==
--- NOTE | 2019-08-07 15:26 | REP ---
Clinical: Renal mass. Technique: Axial precontrast, contrast enhanced, and delayed phase images of the abdomen using 100 ml Isovue 370 intravenous contrast material with coronal and sagittal re-formations. Comparison: 11/13/2018 Findings: Evaluation of the kidneys demonstrates a 1.3 cm enhancing lesion along the upper pole lateral cortex of the left kidney (images 42-44) which is concerning for possible small renal cell carcinoma and unchanged in appearance as compared to 11/13/2018. No associated perinephric stranding or adenopathy noted. Further evaluation of the bilateral kidneys demonstrate small bilateral simple benign cysts measuring up to 1.1 cm of the right kidney and 1.4 cm of the left kidney. No perinephric stranding or hydronephrosis or nephrolithiasis noted. Liver, spleen, pancreas, and bilateral adrenal glands are normal. Evidence of prior cholecystectomy. Visualized portions of the enteric system are unremarkable. No ascites. Abdominal aorta without aneurysm. Musculoskeletal structures demonstrate degenerative changes. Impression: 1. 1.3 cm enhancing lesion along the lateral cortex of the left kidney unchanged in appearance from prior examination but suspicious for small renal cell carcinoma. 2. Few bilateral simple stable renal cysts noted. Electronically Signed by Juanjo Aparicio MD 08/07/2019 03:17 P
== END ==
LOC: M RAD 14:17
PROVIDERS: ATTEND Nurse Practitioner Family
DX: N28.89 Other specified disorders of kidney and ureter (principal); N28.1 Cyst of kidney, acquired

== ENCOUNTER → 2019-10-28 | Outpatient (REF) | payer MEDICARE, MEDICAID ==
[2019-10-28 13:43] LABS: CREATININE, URINE 87.1 MG/DL; MALB URINE SIEMENS 15.3 MG/L; MAU/CREAT RATIO 17.5 MCG/MG (0.0-30.0)
== END ==
LOC: M LAB REF 11:58
PROVIDERS: ATTEND Physician Assistant
DX: E11.9 Type 2 diabetes mellitus without complications (principal)

== ENCOUNTER → 2019-10-31 | Outpatient (CLI) | payer MEDICARE, MEDICAID ==
[2019-10-31 17:13] LABS: ALBUMIN 2.9 GM/DL (3.2-5.2); ALT/SGPT < 6 U/L (12-78); BILIRUBIN,TOTAL 0.4 MG/DL (0.2-1.0); BLOOD UREA NITROGEN 31 MG/DL (7-18); CALCIUM LEVEL 9.2 MG/DL (8.8-10.2); CARBON DIOXIDE LEVEL 29 MEQ/L (21-32); CHLORIDE LEVEL 107 MEQ/L (98-107); CREATININE FOR GFR 0.99 MG/DL (0.55-1.30); GLOMERULAR FILTRATION RATE 58.7 (>39); GLUCOSE, FASTING 84 MG/DL (70-100); POTASSIUM SERUM 5.3 MEQ/L (3.5-5.1); SODIUM LEVEL 140 MEQ/L (136-145); TOTAL PROTEIN 6.9 GM/DL (6.4-8.2)
== END ==
LOC: M WUC 12:28
PROVIDERS: ATTEND Physician Assistant
DX: E11.9 Type 2 diabetes mellitus without complications (principal)

== ENCOUNTER → 2020-01-07 | Outpatient (CLI) | payer MEDICARE, MEDICAID ==
[2020-01-07 16:36] LABS: CALCIUM LEVEL 8.6 MG/DL (8.8-10.2); CREATININE FOR GFR 1.04 MG/DL (0.55-1.30); GLOMERULAR FILTRATION RATE 55.5 (>39); POTASSIUM SERUM 4.7 MEQ/L (3.5-5.1)
[2020-01-07 18:32] LABS: HEMOGLOBIN A1c 6.2 %
== END ==
LOC: M WUC 13:40
PROVIDERS: ATTEND Physician Assistant
DX: E11.9 Type 2 diabetes mellitus without complications (principal)

== ENCOUNTER → 2020-02-13 | Outpatient (CLI) | payer MEDICARE, MEDICAID ==
--- NOTE | 2020-02-13 15:30 | REP ---
INDICATION: KIDNEY MASS COMPARISON: CT dated 08/07/2019 TECHNIQUE: Real time do scale ultrasound examination using curved array transducer. FINDINGS: The bilateral kidneys are normal in contour, size, echogenicity, and reniform shape. No hydronephrosis, nephrolithiasis, cystic or renal mass lesion appreciated. Right kidney measures 9.9 x 5.0 x 3.7 cm. Left kidney measures 11.3 x 5.1 x 5.5 cm. The bladder is collapsed. IMPRESSION: No obvious left renal mass lesion or cystic lesion detected by ultrasound. In re-evaluating the recent CT dated 08/07/2019, the examination is limited due to beam hardening artifact from the patient's arms at her side as opposed to above her head. Consider repeat CT of the abdomen using renal mass protocol or MRI if necessary. <Electronically signed by Juanjo Aparicio > 02/13/20 1526
== END ==
LOC: M RAD 14:23
PROVIDERS: ATTEND Nurse Practitioner Family
DX: N28.89 Other specified disorders of kidney and ureter (principal)

== ENCOUNTER → 2020-02-20 | Outpatient (CLI) | payer MEDICARE, MEDICAID ==
[2020-02-20 16:11] LABS: CALCIUM LEVEL 9.5 MG/DL (8.8-10.2); CREATININE FOR GFR 1.13 MG/DL (0.55-1.30); GLOMERULAR FILTRATION RATE 50.4 (>39); POTASSIUM SERUM 5.1 MEQ/L (3.5-5.1)
== END ==
LOC: M LAB 14:45
PROVIDERS: ATTEND Nurse Practitioner Family
DX: N28.89 Other specified disorders of kidney and ureter (principal)

== ENCOUNTER → 2020-02-20 | Outpatient (CLI) | payer MEDICARE, MEDICAID | LOC: M WUC 13:51 | PROVIDERS: ATTEND Nurse Practitioner Family | DX: Z53.9 Procedure and treatment not carried out, unspecified reason (principal); N28.89 Other specified disorders of kidney and ureter ==

== ENCOUNTER → 2020-02-24 | Outpatient (CLI) | payer MEDICARE, MEDICAID ==
[~2020-02-24] MED LIST changes: +ISOVUE-370 76% 100ML VIAL As Ordered ONE
--- NOTE | 2020-02-24 16:11 | REP ---
INDICATION: KIDNEY MASS COMPARISON: 08/07/2019. TECHNIQUE: CT Scan of the abdomen was performed with intravenous administration of 100 cc of Isovue 370, without oral contrast. Sagittal and coronal reconstruction images are performed. FINDINGS: Lung bases: Mild fibrotic changes. Liver: Normal Gallbladder: Prior cholecystectomy. Spleen: Normal. Adrenals: Normal. Pancreas: Normal. Kidneys: A 1 cm hypodense nodule in the posterior mid right kidney 1 cm in diameter is unchanged and may represent a small cyst. A 1 cm nodule in the upper pole of the left kidney is hypodense and unchanged. There is 1.5 cm cyst in the lateral mid left kidney unchanged. No other cyst in the posterior lower pole of the left kidney is unchanged. An enhancing 1.2 cm nodule in the left upper pole is unchanged. Small and large bowel: Unremarkable. Free fluid: None. Abdominal aorta: No aneurysm or dissection. Adenopathy: None. There is a small right-sided anterior abdominal hernia containing noninflamed fat. Osseous structures: There are degenerative changes of the spine without compression deformity. IMPRESSION: Stable enhancing nodule upper pole left kidney, 1.2 cm in diameter. Other hypodense nodules bilaterally are stable. Continued follow-up recommended. <Electronically signed by Hadley Mueller > 02/24/20 [id number]
== END ==
LOC: M RAD 13:31
PROVIDERS: ATTEND Nurse Practitioner Family
DX: N28.89 Other specified disorders of kidney and ureter (principal)
CPT/HCPCS: 74170; Q9967

== ENCOUNTER → 2020-04-08 | Outpatient (REF) | payer MEDICARE, MEDICAID ==
[~2020-04-08] MED LIST changes: -ISOVUE-370 76% 100ML VIAL As Ordered ONE
[2020-04-08 17:37] LABS: HEMATOCRIT 37.8 % (36.0-47.0); HEMOGLOBIN 11.7 g/dl (12.0-15.5); MEAN CORPUSCULAR VOLUME 100.3 fl (80.0-96.0); PLATELET COUNT, AUTOMATED 121 10^3/uL (150-450); RED BLOOD COUNT 3.77 10^6/uL (4.00-5.40); WHITE BLOOD COUNT 6.4 10^3/uL (4.0-10.0)
[2020-04-08 17:52] LABS: HEMOGLOBIN A1c 6.1 %
[2020-04-08 18:06] LABS: BILIRUBIN,TOTAL 0.4 MG/DL (0.2-1.0); CALCIUM LEVEL 8.8 MG/DL (8.8-10.2); CHOLESTEROL RISK RATIO 2.338 (<5); CREATININE FOR GFR 1.23 MG/DL (0.55-1.30); GLOMERULAR FILTRATION RATE 45.7 (>39); TOTAL PROTEIN 7.3 GM/DL (6.4-8.2)
== END ==
LOC: M LAB REF 16:27
PROVIDERS: ATTEND Physician Assistant
DX: E11.9 Type 2 diabetes mellitus without complications (principal)

== ENCOUNTER → 2020-04-27 | Outpatient (CLI) | payer MEDICARE, MEDICAID ==
[2020-04-27 16:37] LABS: BASO % 0.5 % (0.0-1.0); EOS # 0.1 10^3/uL (0.0-0.5); EOS % 2.2 % (0.0-3.0); HEMATOCRIT 36.2 % (36.0-47.0); HEMOGLOBIN 11.6 g/dl (12.0-15.5); LYMPH # 1.5 10^3/uL (1.5-5.0); LYMPH % 24.3 % (24.0-44.0); MEAN CORPUSCULAR HEMOGLOBIN 30.7 pg (27.0-33.0); MEAN CORPUSCULAR VOLUME 95.8 fl (80.0-96.0); MONO # 0.8 10^3/uL (0.0-0.8); MONO % 13.1 % (2.0-8.0); NEUTROPHILS # 3.8 10^3/uL (1.5-8.5); NEUTROPHILS % 59.3 % (36.0-66.0); PLATELET COUNT, AUTOMATED 115 10^3/uL (150-450); RED BLOOD COUNT 3.78 10^6/uL (4.00-5.40); WHITE BLOOD COUNT 6.3 10^3/uL (4.0-10.0)
[2020-04-27 17:12] LABS: ERYTHROCYTE SEDIMENTATION RATE 34 mm/hr (0-30)
== END ==
LOC: M WUC 14:54
PROVIDERS: ATTEND Pediatrics
DX: R41.82 Altered mental status, unspecified (principal)

== ENCOUNTER 2020-07-20 19:25 | Emergency (ER) | payer MEDICARE, OTHER ==
[~2020-07-20] VITALS: Ht 167.6 cm; Wt 90.9 kg
[~2020-07-20 19:25] MED LIST changes: +CARB-89 PO; +METH1ADH5 TOP; -SALOPAD4 TOP; -SINE25TA5 PO
[2020-07-20] MEDS ORDERED: DIVA500T9 PO (20:31)
[2020-07-20] MEDS ORDERED: ASPI81CH33 PO (20:31)
[2020-07-20] MEDS ORDERED: MELA5CAP2 PO (20:31)
[2020-07-20] MEDS ORDERED: MYRB50TA PO (20:31)
--- NOTE | 2020-07-20 22:52 | REPVR ---
PROCEDURE INFORMATION: Exam: CT Head Without Contrast Exam date and time: 07/20/2020 10:07 PM Age: 75 years old Clinical indication: Altered mental status/memory loss TECHNIQUE: Imaging protocol: Computed tomography of the head without contrast. Radiation optimization: All CT scans at this facility use at least one of these dose optimization techniques: automated exposure control; mA and/or kV adjustment per patient size (includes targeted exams where dose is matched to clinical indication); or iterative reconstruction. 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 Moderate severe chronic white matter disease and cerebral volume loss. Cerebral ventricles: No ventriculomegaly. Paranasal sinuses: Visualized sinuses are unremarkable. No fluid levels. Mastoid air cells: Visualized mastoid air cells are well aerated. Bones/joints: Unremarkable. No acute fracture. Soft tissues: Unremarkable. IMPRESSION: 1. No acute intracranial abnormality. 2. 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 Electronically signed by: Marty Gruber On 07/20/2020 22:52:05 PM
--- NOTE | 2020-07-20 22:52 | REPVR ---
PROCEDURE INFORMATION: Exam: XR Chest Exam date and time: 07/20/2020 10:07 PM Age: 75 years old Clinical indication: Other: AMS; Additional info: Altered mental status TECHNIQUE: Imaging protocol: XR of the chest. Views: 1 view. COMPARISON: No relevant prior studies available. FINDINGS: Lungs: Unremarkable. No consolidation. Pleural spaces: Unremarkable. No pleural effusion. No pneumothorax. Heart/Mediastinum: Unremarkable. No cardiomegaly. Vasculature: Mild aortic atherosclerosis. Bones/joints: Unremarkable. Organs: Cholecystectomy clips in the right upper quadrant. IMPRESSION: No acute findings. Electronically signed by: Marty Gruber On 07/20/2020 22:52:31 PM
[2020-07-20 23:43] LABS: BASO # 0.1 10^3/uL (0.0-0.2); BASO % 0.6 % (0.0-1.0); EOS # 0.1 10^3/uL (0.0-0.5); EOS % 1.4 % (0.0-3.0); HEMATOCRIT 33.5 % (36.0-47.0); HEMOGLOBIN 10.5 g/dl (12.0-15.5); LYMPH # 2.6 10^3/uL (1.5-5.0); LYMPH % 29.3 % (24.0-44.0); MEAN CORPUSCULAR HEMOGLOBIN 29.5 pg (27.0-33.0); MEAN CORPUSCULAR HGB CONC 31.3 g/dl (32.0-36.5); MEAN CORPUSCULAR VOLUME 94.1 fl (80.0-96.0); MONO % 21.7 % (2.0-8.0); NEUTROPHILS # 4.2 10^3/uL (1.5-8.5); NEUTROPHILS % 46.1 % (36.0-66.0); PLATELET COUNT, AUTOMATED 134 10^3/uL (150-450); RED BLOOD COUNT 3.56 10^6/uL (4.00-5.40)
[2020-07-20 23:53] LABS: AMPHETAMINES LEVEL URINE NEGATIVE (NEGATIVE); BARBITURATES URINE NEGATIVE (NEGATIVE); BENZODIAZEPINES URINE NEGATIVE (NEGATIVE); CANNABINOIDS URINE NEGATIVE (NEGATIVE); COCAINE METABOLITE URINE NEGATIVE (NEGATIVE); METHADONE URINE NEGATIVE (NEGATIVE); OPIATES URINE NEGATIVE (NEGATIVE); PHENCYCLIDINE URINE NEGATIVE (NEGATIVE)
[2020-07-21 00:05] LABS: ACETAMINOPHEN LEVEL < 2.0 UG/ML (10.0-30.0); ALBUMIN 2.4 GM/DL (3.2-5.2); ALT/SGPT < 6 U/L (12-78); BILIRUBIN,DIRECT < 0.1 MG/DL (0.0-0.2); BILIRUBIN,TOTAL 0.3 MG/DL (0.2-1.0); BLOOD UREA NITROGEN 22 MG/DL (7-18); CALCIUM LEVEL 8.6 MG/DL (8.8-10.2); CARBON DIOXIDE LEVEL 27 MEQ/L (21-32); CHLORIDE LEVEL 107 MEQ/L (98-107); CK-MB VALUE MASS 9.8 NG/ML (<3.6); CPK CREATINE PHOSPHOKINASE 201 U/L (26-192); CREATININE FOR GFR 0.83 MG/DL (0.55-1.30); ETHYL ALCOHOL (ETHANOL) < 0.003 % (0.000-0.010); GLOMERULAR FILTRATION RATE > 60.0 (>39); GLUCOSE, FASTING 88 MG/DL (70-100); MB/CK RELATIVE INDEX 4.88 (< OR =4); POTASSIUM SERUM 4.8 MEQ/L (3.5-5.1); SALICYLATE LEVEL < 1.7 MG/DL (5.0-30.0); SODIUM LEVEL 141 MEQ/L (136-145); TOTAL PROTEIN 6.3 GM/DL (6.4-8.2); TROPONIN I < 0.02 NG/ML (< 0.10); VALPROIC ACID (DEPAKOTE) 86.6 UG/ML (50.0-100.0)
[2020-07-21 01:00] VITALS: BP 169/71
--- NOTE | 2020-07-21 08:15 | ECGEPIP ---
[facility] - ED Test Date: 2020-07-20 Pat Name: MAIKEL ZURITA Department: Room: - Gender: Female [employer]: GREGORY : 1945 Requested By: JOANNE Mendenhall Order Number: [id number] Reading MD: Donovan Branch Measurements Intervals [place] Rate: 82 P: 58 WV: 152 QRS: -58 QRSD: 60 T: 47 QT: 368 QTc: 429 Interpretive Statements Normal sinus rhythm Left axis deviation Low voltage QRS POOR R WAVE PROGRESSION Inferior infarct , age undetermined SIMILAR TO 11/19/18 Electronically Signed on 07-21-2020 8:14:36 EDT by Donovan Branch
== END 2020-07-21 02:15 | disposition home or self-care (01) ==
LOC: M ED 19:25
DX: I67.83 Posterior reversible encephalopathy syndrome (principal); L89.159 Pressure ulcer of sacral region, unspecified stage; I63.89 Other cerebral infarction; Z79.899 Other long term (current) drug therapy

== ENCOUNTER → 2020-08-25 | Outpatient (CLI) | payer MEDICARE, OTHER ==
[~2020-08-25] MED LIST changes: +ASPI81CH33 PO; +DIVA500T9 PO; +MELA5CAP2 PO; -METH1ADH5 TOP; +METH1ADH6 TOP; +MYRB50TA PO
--- NOTE | 2020-08-25 15:32 | REP ---
INDICATION: KIDNEY MASS. COMPARISON: 02/13/2020. TECHNIQUE: Real-time sonographic evaluation of the kidneys is performed. FINDINGS: The study is extremely limited due to patient body habitus. Patient could not be transferred to a stretcher and the study is performed in wheelchair. The left kidney could not be visualized. The right kidney is visualized and measures 9.1 x 3.6 x 3.8 cm. There is no hydronephrosis or gross mass. In the posterior inferior right bladder there is an echogenic structure along the inner wall measuring 5.8 x 5.5 x 2.8 cm. This could represent a mass, area of echogenic debris or blood clot. IMPRESSION: Extremely limited exam due to patient body habitus. Patient could not transferred to a stretcher and the study is done in a wheelchair. The left kidney could not be visualized. The right kidney is unremarkable. An echogenic area in the right posterior bladder measures 5.8 x 5.5 x 2.8 cm. This could represent a bladder wall mass, focal echogenic debris or blood clot. <Electronically signed by Hadley Mueller > 08/25/20 1529
== END ==
LOC: M RAD 14:10
PROVIDERS: ATTEND Nurse Practitioner Women's Health
DX: N28.89 Other specified disorders of kidney and ureter (principal); N32.89 Other specified disorders of bladder

== ENCOUNTER 2020-09-02 18:08 | Inpatient (IN) | payer MEDICARE, OTHER ==
[~2020-09-02] VITALS: Ht 162.6 cm; Wt 84.6 kg
[2020-09-02 18:45] LABS: BASO # 0.1 10^3/uL (0.0-0.2); BASO % 0.7 % (0.0-1.0); EOS % 0.1 % (0.0-3.0); HEMATOCRIT 33.2 % (36.0-47.0); HEMOGLOBIN 10.4 g/dl (12.0-15.5); LYMPH % 20.6 % (24.0-44.0); MEAN CORPUSCULAR HEMOGLOBIN 30.1 pg (27.0-33.0); MEAN CORPUSCULAR HGB CONC 31.3 g/dl (32.0-36.5); MONO # 1.7 10^3/uL (0.0-0.8); MONO % 16.8 % (2.0-8.0); NEUTROPHILS # 5.8 10^3/uL (1.5-8.5); NEUTROPHILS % 58.5 % (36.0-66.0); PLATELET COUNT, AUTOMATED 162 10^3/uL (150-450); RED BLOOD COUNT 3.46 10^6/uL (4.00-5.40)
[2020-09-02 19:18] LABS: WHITE BLOOD COUNT 9.9 10^3/uL (4.0-10.0)
[2020-09-02] MEDS ORDERED: OLAN2.5T25 PO (19:24)
[2020-09-02] MEDS ORDERED: CITA10TA5 PO (19:24)
[2020-09-02 19:30] LABS: ALBUMIN 1.8 GM/DL (3.2-5.2); ALT/SGPT < 6 U/L (12-78); BILIRUBIN,DIRECT < 0.1 MG/DL (0.0-0.2); BILIRUBIN,TOTAL 0.5 MG/DL (0.2-1.0); BLOOD UREA NITROGEN 34 MG/DL (7-18); CALCIUM LEVEL 8.6 MG/DL (8.8-10.2); CARBON DIOXIDE LEVEL 30 MEQ/L (21-32); CHLORIDE LEVEL 106 MEQ/L (98-107); CREATININE FOR GFR 1.23 MG/DL (0.55-1.30); GLOMERULAR FILTRATION RATE 45.6 (>39); GLUCOSE, FASTING 164 MG/DL (70-100); POTASSIUM SERUM 4.9 MEQ/L (3.5-5.1); SODIUM LEVEL 141 MEQ/L (136-145); TOTAL PROTEIN 6.5 GM/DL (6.4-8.2)
--- NOTE | 2020-09-02 19:59 | REPVR ---
PROCEDURE INFORMATION: Exam: CT Head Without Contrast Exam date and time: 09/02/2020 7:17 PM Age: 75 years old Clinical indication: Other: Brain mass, sz TECHNIQUE: Imaging protocol: Computed tomography of the head without contrast. Radiation optimization: All CT scans at this facility use at least one of these dose optimization techniques: automated exposure control; mA and/or kV adjustment per patient size (includes targeted exams where dose is matched to clinical indication); or iterative reconstruction. COMPARISON: CT Head without contrast 07/20/2020 9:50 PM FINDINGS: Brain: The brain demonstrates marked generalized volume loss, advanced for age. Multiple old transcortical infarcts, as before. There is an old left cerebellar infarct, as before. Cerebral ventricles: The ventricles are enlarged in keeping with volume loss. Paranasal sinuses: Visualized sinuses are unremarkable. No fluid levels. Mastoid air cells: Visualized mastoid air cells are well aerated. Bones/joints: No acute calvarial fracture seen. Soft tissues: Unremarkable. IMPRESSION: No acute intracranial abnormality seen. Considerable areas of cerebral encephalomalacia, as before. Electronically signed by: Yelena Jama On 09/02/2020 19:58:48 PM
[2020-09-02 20:22] LABS: VALPROIC ACID (DEPAKOTE) 88.3 UG/ML (50.0-100.0)
[2020-09-02] MEDS ORDERED: DIVA500T94 PO (20:37)
[2020-09-02] MEDS ORDERED: ASPI81TA26 PO (20:37)
[2020-09-02] MEDS ORDERED: HOME MED LIST COMPLETE! XX SCH (20:40)
[2020-09-02 22:18] LABS: BASO # 0.1 10^3/uL (0.0-0.2); BASO % 0.7 % (0.0-1.0); EOS % 0.2 % (0.0-3.0); HEMATOCRIT 32.5 % (36.0-47.0); LYMPH # 1.9 10^3/uL (1.5-5.0); LYMPH % 19.1 % (24.0-44.0); MEAN CORPUSCULAR HEMOGLOBIN 29.4 pg (27.0-33.0); MEAN CORPUSCULAR HGB CONC 30.8 g/dl (32.0-36.5); MEAN CORPUSCULAR VOLUME 95.6 fl (80.0-96.0); MONO # 1.7 10^3/uL (0.0-0.8); MONO % 17.1 % (2.0-8.0); NEUTROPHILS % 60.8 % (36.0-66.0); PLATELET COUNT, AUTOMATED 173 10^3/uL (150-450)
[2020-09-02 22:36] LABS: HEMOGLOBIN A1c 6.4 %
[2020-09-02 22:41] LABS: WHITE BLOOD COUNT 9.8 10^3/uL (4.0-10.0)
[2020-09-02 22:54] LABS: ALBUMIN 1.8 GM/DL (3.2-5.2); ALT/SGPT < 6 U/L (12-78); BILIRUBIN,TOTAL 0.4 MG/DL (0.2-1.0); BLOOD UREA NITROGEN 35 MG/DL (7-18); CALCIUM LEVEL 8.6 MG/DL (8.8-10.2); CARBON DIOXIDE LEVEL 33 MEQ/L (21-32); CHLORIDE LEVEL 107 MEQ/L (98-107); CREATININE FOR GFR 1.11 MG/DL (0.55-1.30); GLOMERULAR FILTRATION RATE 51.3 (>39); GLUCOSE, FASTING 133 MG/DL (70-100); SODIUM LEVEL 144 MEQ/L (136-145); TOTAL PROTEIN 6.3 GM/DL (6.4-8.2)
--- NOTE | 2020-09-02 22:59 | REPVR ---
PROCEDURE INFORMATION: Exam: XR Chest Exam date and time: 09/02/2020 9:48 PM Age: 75 years old Clinical indication: Other: Hypoxia, rll diminished TECHNIQUE: Imaging protocol: XR of the chest. Views: 1 view. COMPARISON: 1. CR PORTABLE CHEST X-RAY 2020-07-20 21:52 2. PA PORTABLE CHEST X-RAY 2018-11-26 01:52 3. PA PORTABLE CHEST X-RAY 2018-11-21 06:45 4. PA PORTABLE CHEST X-RAY 2018-11-20 06:52 FINDINGS: Lungs: Dependent subsegmental pulmonary atelectasis. Pleural spaces: Unremarkable. No pleural effusion. No pneumothorax. Heart/Mediastinum: Unremarkable. No cardiomegaly. Bones/joints: Unremarkable. Organs: Cholecystectomy. IMPRESSION: Dependent subsegmental pulmonary atelectasis. Electronically signed by: Marty Gruber On 09/02/2020 22:58:30 PM
[2020-09-02] MEDS ORDERED: OLANZapine INTRAMUSCULAR 10MG VIAL IM PRN (23:20)
[2020-09-03] VITALS (11 sets, daily range): BP systolic 105–133; BP diastolic 39–56; O2SAT 92–100
[2020-09-03] MEDS ORDERED: VALPROATE SOD INJ 1,000 MG in D5W 50 ML IV SCH ×2
--- NOTE | 2020-09-03 00:36 | HPEPDOC ---
General Date of Admission Sep 02, 2020 at 21:29 Date of Service: Sep 02, 2020 Primary Care Physician: A Attending Physician: YANELIS JULES MD Chief Complaint The patient is a 75-year-old female admitted with a reason for visit of Acute Kidney Inj,Dehydration,Sacral Decubitus Ulce. Source: Family (SISTER, FIELD TAX AUDITOR AT BEDSIDE) Exam Limitations: Physical impairment, Dementia, Hard of hearing Timing/Duration: Day(s) Associated Symptoms: Unobtainable History of Present Illness Carmenza Lloyd is a 75-year-old female with history of PRES, Parkinson's dementia, brain lesion with postsurgical changes encephalomalacia who presents with poor po and lethargy x2 days. Patient's prosthetics technician, sister, at bedside and helps with medical history and HPI. She reports that the patient has had a progressive decline since June in general however past 2 days with her not eating and drinking much at all have made things more difficult. Patient has a known coccyx pressure injury and was seen at wound care on the of this month; Notes detail wound has been getting bigger. Patient's sister admits to having hard time providing care. Patient nonverbal at baseline and mostly sleeping during exam but in no acute distress. She did have labile SPO2 and improvement with nasal cannula 2 L to SPO2 92% no history of use of oxygen at bedtime but she does have a history of smoking. Of note, CT head nonacute. Home Medications Scheduled Aspirin (Aspirin EC) 81 Mg Tablet.dr, 81 MG PO DAILY, (Reported) Atorvastatin Calcium (Atorvastatin Calcium) 40 Mg Tablet, 40 MG PO QHS, (Reported) Carbidopa/Levodopa (Sinemet 25-100 mg Tablet) 1 Each Tablet, 2 TAB PO QID, (Reported) 3 HOURS BETWEEN EACH DOSE PER FAMILY Citalopram Hydrobromide (Citalopram HBr) 10 Mg Tablet, 15 MG PO QHS, (Reported) Divalproex Sodium (Divalproex Sodium) 500 Mg Tablet.dr, 1,000 MG PO BID, (Reported) Latanoprost (Xalatan) 0.005% 2.5ML Drops, 1 DROP OU QHS, (Reported) Melatonin (Melatonin) 5 Mg Capsule, 5 MG PO QHS, (Reported) Mirabegron (Myrbetriq) 50 Mg Tab.er.24h, 50 MG PO DAILY, (Reported) Olanzapine (Olanzapine) 2.5 Mg Tablet, 2.5 MG PO BID, (Reported) Allergies Coded Allergies: No Known Drug Allergies (Verified Allergy, Unknown, 07/20/20) Past Medical History Medical History Parkinson's, dementia, lesion of kidney in November, ?lesion of the brain, press syndrome, CVA which left patient nonverbal, visual and hearing impairment requiring glasses and hearing aids Surgical History Cholecystectomy Family History Significant Family History: No pertinent family hx SON-DIABETES Social History * Smoker: former Smoker (QUIT 5 YEARS AGO) Alcohol: Denies Drugs: denies Recent Travel/Sick Contacts: Denies: Recent travel, Recent sick contacts Patient lives with her sister who is her prosthetics technician. Patient does have a living son who is next of kin/her power of corporate associate attorney/decision-maker A-FIB/CHADSVASC A-FIB History Current/History of A-Fib/PAF?: No Current PO Anticoag Therapy: No Review of Systems Other systems Unable to be obtained given patient condition. Physical Examination General Exam: Positive: No Acute Distress Eye Exam: Positive: PERRLA, EOMI (Eyes track light); Negative: Conjunctiva & lids normal (Some minor discharge noted on eyelids; conjunctive a without irritation) ENT Exam: Positive: Atraumatic; Negative: Mucous membr. moist/pink (Dry mucous membranes) Neck Exam: Positive: Supple; Negative: JVD, thyromegaly Chest Exam: Positive: Diminished (Diminished bilateral lower lobes) Heart Exam: Positive: Rate Normal, Regular Rhythm, Normal S1, Normal S2; Negative: Murmurs, Rubs Telemetry: Positive: No significant arrhythmia Abdomen Exam: Positive: BS Hypoactive, Soft; Negative: Tenderness Extremity Exam: Positive: Normal pulses; Negative: Tenderness Skin Exam: Positive: Breakdown (Sacral wound), Other skin issue (Notable for left heel wound and also beginning right heel wound) Neuro Exam: Positive: Sensation Intact, Other (Patient opens eyes to localize pain; notable tremor of hands) Psych Exam: Negative: Mental status NL, Oriented x 3 (Patient lethargic, nonverbal) Vital Signs Vital Signs Date Time Temp Pulse Resp B/P (MAP) Pulse Ox O2 Delivery O2 Flow Rate FiO2 09/02/20 22:46 90 18 148/59 (88) Nasal Cannula 2.5 09/02/20 22:45 100 09/02/20 18:17 99.5 Laboratory Data Labs 24H Laboratory Tests 2 09/02/20 18:30: Immature Granulocyte % (Auto) 3.3H, Neutrophils (%) (Auto) 58.5, Lymphocytes (%) (Auto) 20.6L, Monocytes (%) (Auto) 16.8H, Eosinophils (%) (Auto) 0.1, Basophils (%) (Auto) 0.7, Neutrophils # (Auto) 5.8, Lymphocytes # (Auto) 2.0, Monocytes # (Auto) 1.7H, Eosinophils # (Auto) 0.0, Basophils # (Auto) 0.1, Nucleated Red Blood Cells % (auto) 0.0, POC Troponin I (Misc) 0.01, Anion Gap 5L, Glomerular Filtration Rate 45.6, Calcium Level 8.6L, Total Bilirubin 0.5, Direct Bilirubin < 0.1, Aspartate Amino Transf (AST/SGOT) 28, Alanine Aminotransferase (ALT/SGPT) < 6L, Alkaline Phosphatase 53, Total Protein 6.5, Albumin 1.8L, Albumin/Globulin Ratio 0.4L, Thyroid Stimulating Hormone (TSH) 3.020, Valproic Acid (Depakene) Level 88.3 09/02/20 18:37: Bedside Glucose (Misc Panel) 158H 09/02/20 22:05: Immature Granulocyte % (Auto) 2.1, Neutrophils (%) (Auto) 60.8, Lymphocytes (%) (Auto) 19.1L, Monocytes (%) (Auto) 17.1H, Eosinophils (%) (Auto) 0.2, Basophils (%) (Auto) 0.7, Neutrophils # (Auto) 6.0, Lymphocytes # (Auto) 1.9, Monocytes # (Auto) 1.7H, Eosinophils # (Auto) 0.0, Basophils # (Auto) 0.1, Nucleated Red Blood Cells % (auto) 0.2H, Anion Gap 4L, Glomerular Filtration Rate 51.3, Calcium Level 8.6L, Total Bilirubin 0.4, Aspartate Amino Transf (AST/SGOT) 16, Alanine Aminotransferase (ALT/SGPT) < 6L, Alkaline Phosphatase 53, Total Protein 6.3L, Albumin 1.8L, Albumin/Globulin Ratio 0.4L, Thyroid Stimulating Hormone (T SH) 2.540, Estimated Mean Plasma Glucose 137H, Hemoglobin A1c 6.4, Lactic Acid Level 1.5, Magnesium Level 2.0 CBC/BMP Laboratory Tests 09/02/20 18:30 09/02/20 22:05 Microbiology Microbiology 09/02/20 Blood Culture, Received Pending 09/02/20 Respiratory Virus Panel (PCR) ([facility]) - Final, Complete RAD Interpretation STUDY: CXR Rad Actions: Report Reviewed (Bilateral atelectasis) Assessment/Plan 1. Encephalopathy in nonverbal patient with dementia, PRES, seizure history and Parkinson's: Evidenced by lethargy and failure to thrive. -CT head nonacute but shows multiple old infarcts and cerebral encephalomalacia. -No overt signs of seizure activity although patient does have a resting tremor. No known recent last seizure per prosthetics technician but she did describe and episode where patient seemed to be shaking for about 15 seconds 2 weeks ago. Patient sees neurology in town. Patient was able to swallow her seizure medication earlier today. Therapeutic valproate levels. -Plan to monitor patient, seizure precautions. PO seizure med to IV. Treat as below a.m. labs, check UA. Consider neurology consult pending course. 2. Dehydration in frail elder: Patient with poor intake past 2 days per prosthetics technician; dry mucous membranes. -Plan to monitor patient, I's and O's. -Hydration with consideration for any overload signs symptoms. -Patient at present aspiration risk. NPO. Appreciate MONUMENTAL STONEMASON consult and pt may need PPN for interim. -Anticipate given patient's failure to thrive she may require PEG tube placement that is something to be established with family. Sister is prosthetics technician but patient's son is next of kin and power of corporate associate attorney. Kyle Lloyd (son) phone number [phone]. Consider surgical consult pending familial discussion. 3. COPD without acute exacerbation: No wheeze/rhonchi appreciated. Patient nonlabored breathing Monitor patient, respiratory status. Patient saturation 85-88% during exam however labile given earlobe probe. Responded well with 2 L nasal cannula to 92%. Patient does have a history of CABRERA and CPAP use but none recently per prosthetics technician. Chest x-ray without acute infiltrate and no leukocytosis. 88% may likely be patient's baseline with COPD. Sister is uncertain. -Plan for ABG on room air to determine oxygenation demand as this could be contributing to encephalopathy if she is retaining CO2. -Oxygen and continuous pulse ox monitoring. -As needed breathing treatment 4. Coccyx wound and pressure injury to bilateral heels: In deconditioned, failure to thrive bedbound patient: Monitor patient, wound care to keep clean. Turn patient every 2 hours to prevent further breakdown. Bilateral boot heel protectors. Appreciate WOCN recommendations. Patient has seen wound care outpatient-last on August 31 and note reports significant enlargement of coccyx wound. 5. Anemia, hgb 9, baseline 10: Likely MARKUS in frail elder coupled with minor blood loss with wounds. Monitor patient, a.m. labs. CODE STATUS: Assumed full code presently. Given patient last wound care order with palliative approach and advanced age of Parkinson's dementia coupled with patient sustained nonverbal response with PRES history- poor prognosis overall with failure to thrive. Would anticipate patient needs to opt for palliative approach. Did not reach out to son for goal of care discussion during admission; will need to be completed in AM. Kyle Lloyd (son) phone num damaris [phone] Dispo: Appreciate case management for assistance with placement Plan / VTE VTE Prophylaxis Ordered?: Yes Plan / Urinary Catheter Urinary Catheter: Straight Cath ERICK GOINS NP Sep 02, 2020 23:30
[2020-09-03 00:49] LABS: ABG BASE EXCESS 2.3 (-2.0-2.0); ABG HCO3 26.5 MEQ/L (22.0-26.0); ABG O2 SATURATION 98.4 % (95.0-99.0); ABG PARTIAL PRESSURE CO2 39.4 mmHg (35.0-45.0); ABG PARTIAL PRESSURE O2 113.3 mmHg (75.0-100.0); ABG STANDARD HCO3 26.5 MEQ/L (22.0-26.0); ABG TOTAL CO2 27.7 MEQ/L (23.0-31.0); ABG pH (ARTERIAL) 7.445 UNITS (7.350-7.450)
[2020-09-03] MEDS: D5W/0.45% SODIUM CHLORIDE 1,000 ML IV SCH ×2 (02:06→15:53)
--- NOTE | 2020-09-03 04:31 | ECGEPIP ---
[facility] - ED Test Date: 2020-09-02 Pat Name: MAIKEL ZURITA Department: Room: - Gender: Female Document Design Specialist: STEFAN : 1945 Requested By: Kathleen Koenig Order Number: [id number] Reading MD: Donovan Branch Measurements Intervals [place] Rate: 89 P: 49 AL: 128 QRS: -43 QRSD: 60 T: 22 QT: 332 QTc: 403 Interpretive Statements Normal sinus rhythm Left axis deviation Pulmonary disease pattern Inferior infarct , age undetermined POOR R WAVE PROGRESSION SIMILAR TO 07/20/20 Electronically Signed on 09-03-2020 4:31:20 EDT by Donovan Branch
[2020-09-03] MEDS: HEPARIN SOD (PORCINE) 5000UNITS/ML 1ML VIAL/SYRINGE SC SCH ×3 (05:16→22:15)
[2020-09-03] MEDS: LATANOPROST 0.005% OPHTH SOLN 2.5 ML OU SCH ×2 (05:16→22:15)
[2020-09-03 05:56] LABS: BASO # 0.1 10^3/uL (0.0-0.2); BASO % 0.5 % (0.0-1.0); EOS % 0.2 % (0.0-3.0); HEMATOCRIT 28.9 % (36.0-47.0); LYMPH # 2.2 10^3/uL (1.5-5.0); LYMPH % 23.3 % (24.0-44.0); MEAN CORPUSCULAR HEMOGLOBIN 29.4 pg (27.0-33.0); MEAN CORPUSCULAR HGB CONC 31.1 g/dl (32.0-36.5); MEAN CORPUSCULAR VOLUME 94.4 fl (80.0-96.0); MONO # 1.6 10^3/uL (0.0-0.8); MONO % 17.3 % (2.0-8.0); NEUTROPHILS # 5.2 10^3/uL (1.5-8.5); PLATELET COUNT, AUTOMATED 158 10^3/uL (150-450); RED BLOOD COUNT 3.06 10^6/uL (4.00-5.40)
[2020-09-03 05:57] LABS: WHITE BLOOD COUNT 9.3 10^3/uL (4.0-10.0)
[2020-09-03 06:22] LABS: CALCIUM LEVEL 8.3 MG/DL (8.8-10.2); GLOMERULAR FILTRATION RATE 57.9 (>39); POTASSIUM SERUM 4.1 MEQ/L (3.5-5.1)
[2020-09-03] MEDS ORDERED: IPRATROPIUM 0.5MG/ALBUTEROL 2.5MG INH SOL UD 3ML (DUONEB) NEB PRN (06:40)
[2020-09-03] MEDS ORDERED: PILL CUTTER 1 EACH XX PRN (07:10)
[2020-09-03] MEDS ORDERED: ASPIRIN 81MG ENTERIC TABLET PO SCH (09:00)
[2020-09-03] MEDS: SINEMET 25-100 MG TAB PO SCH ×4 (10:00→18:03)
--- NOTE | 2020-09-03 11:06 | IPNPDOC ---
Text Note Date of Service The patient was seen on 09/03/20. NOTE Subjective: Pt was seen at bedside this morning and was sleeping and not arousable to light stimulus. She is non-verbal at baseline, and her sister who is the primary historian was not yet present for the day. Pt has overall been very lethargic. Unable to assess ROS. Objective: Gen: Pt was asleep and not aroused by light stimulus. Psych: unable to assess. HEENT: no cervical lymphadenopathy, no JVD, no thyromegaly. RESP: Mildly diminished breath sounds in lower matos b/l. CVS: RRR, no murmur, gallop, rubs. ABD: soft, nondistended, normoactive bowel sounds. Ext: no distal edema. Skin: ulcers on b/l heals covered with pressure relieving casts. Stage 3-4 decubitus ulcer over sacral area. Imaging: CT Head without contrast (09/02) Reported as- No acute intracranial abnormality seen. Considerable areas of cerebral encephalomalacia, as before. CHEST X-RAY (09/02) Reported as- Dependent subsegmental pulmonary atelectasis. Assessment: Pt is a 75yo F w PMHx of PRES, Parkinson's dementia, CVA leading to nonverbal state, encephalomalacia, and COPD. Patient presented yesterday with 2 day Hx of no PO intake and lethargy. Pt has 2 month Hx decreased PO intake and progressively worsening lethargy as well. On initial evaluation, labs showed anemia and electrolyte abnormalities. Pt was admitted for management of lab abnormalities and nutrition maintenance. Plan: 1. Dehydration and Decreased Oral Intake We are managing pt on IV fluids. Family is considering PEG tube placement for a intermodal owner operator truck driver solution to decreased PO intake. Discussed with family that this will not change her prognosis or decrease her risk of aspiration. Speech/swallow eval order is placed, unable to assess pt this morning due to lethargy. 2. COPD Pt was sating 91% on 3L O2 by nasal cannula. We will continue w Albuterol/Ipratroprium Neb for sx management. 3. Decubitus Ulcers on Sacrum and b/l heels. We will consider consulting Dr. Holloway for evaluation of sacral area ulcer. Pressure relieving casts have been applied to b/l ankles. 4. Seizure risk 2/2 PRES, Parkinson's dementia We will continue w Valproate for seizure prophylaxis. She is currently NPO, hold home Carbidopa/Levodopa and Citalopram IM Olanzapine BID PRN for agitation. 5. Hx CVA and dyslipidemia hold home atorvastatin and Aspirin 81mg while npo 6. Anemia Decreased Hgb may be d/t ulcers/cutaneous breakdown. We will continue to monitor H+H. 7. DVT Prophylaxis We are giving Heparin along w TEDs and sequentials. Pt is DNR/DNI per son (proxy), will be sending the paperwork Disposition: We will discuss plan with sister and son, who is healthcare proxy, concerning PEG tube placement. We will continue to monitor labs and for signs of clinical improvement. VS,Fishbone, I+O VS, Fishbone, I+O Laboratory Tests 09/02/20 18:30 09/02/20 22:05 09/03/20 05:35 Vital Signs Date Time Temp Pulse Resp B/P (MAP) Pulse Ox O2 Delivery O2 Flow Rate FiO2 09/03/20 06:00 98.2 88 18 133/55 (81) 91 Nasal Cannula 3.0 I&O- Last 24 Hours up to 6 AM 09/03/20 05:59 Intake Total 0 ml Balance 0 ml GME ATTESTATION GME ATTESTATION My faculty preceptor for this patient encounter was physically present during the encounter and was fully available. All aspects of the patient interview, examination, medical decision making process, and medical care plan development were reviewed and approved by the faculty preceptor. The faculty preceptor is aware and concurs with the plan as stated in the body of this note and will attest to such by his/her cosignature. ATTENDING NOTE I, Cuba Harrell, have independently examined this patient and performed my own physical exam, as well as reviewed the documentation and edited where necessary. I have discussed in detail with the resident / student the findings and plan of treatment as documented by the resident / student and edited their note. I agree with their findings and treatment plan and have edited their documentation. I will continue to follow the patient during this hospital stay. BRITTNEY ROSAS OMS-3 Sep 03, 2020 11:06 CUBA HARRELL MD Sep 03, 2020 14:04 YOBANY GIBSON D.O. Sep 03, 2020 15:27
[2020-09-03] MEDS: VALPROATE SOD INJ 1,000 MG in D5W 50 ML IV SCH (16:00)
--- NOTE | 2020-09-03 18:16 | REP ---
INDICATION: Hypoxia. COMPARISON: Portable chest, 09/02/2020. TECHNIQUE: AP portable chest, sitting. FINDINGS: There has been interval development of airspace disease in the left lung base consistent with atelectasis or pneumonia. The right lung is clear. There is calcific vascular disease of the thoracic aorta. There is no evidence of congestive heart failure. IMPRESSION: Interval development of atelectasis or pneumonia in the left lung base. <Electronically signed by Sergio Storey > 09/03/20 [id number]
[2020-09-03 18:23] LABS: ABG BASE EXCESS 2.2 (-2.0-2.0); ABG HCO3 26.7 MEQ/L (22.0-26.0); ABG O2 SATURATION 95.1 % (95.0-99.0); ABG PARTIAL PRESSURE CO2 41.6 mmHg (35.0-45.0); ABG PARTIAL PRESSURE O2 74.5 mmHg (75.0-100.0); ABG STANDARD HCO3 26.4 MEQ/L (22.0-26.0); ABG pH (ARTERIAL) 7.426 UNITS (7.350-7.450)
[2020-09-03] MEDS ORDERED: VANCOMYCIN HCL 1,000 MG in IV FLUID PLACE HOLDER 1 EA IV ONE (18:35)
--- NOTE | 2020-09-03 18:45 | IPNPDOC ---
Text Note Date of Service The patient was seen on 09/03/20. NOTE Subjective: Patient was reevaluated this afternoon due to hypoxia. It was noted that the patient was desaturating on room air and requiring a nonrebreather to maintain oxygen saturations above 90%. The patient remains lethargic and responsive only to painful stimuli. Objective: Generally the patient appears lethargic. Lung sounds diminished on the left. Assessment and plan: Chest x-ray reveals new left lower lobe pneumonia compared to yesterday morning. ABG reveals hypoxia. Further work-up including CBC, BMP, lactic acid, procalcitonin, magnesium level, blood cultures, sputum culture. We will start her on broad spectrum antibiotic coverage with vanco and zosyn. patient will be transferred to PCU for closer monitoring. Any changes overnight, please call the patients sister (Myesha [phone]) and the the patients son/HCP (Kyle [phone]) VS,Fishbone, I+O VS, Marke, I+O Laboratory Tests 09/02/20 22:05 09/03/20 05:35 Vital Signs Date Time Temp Pulse Resp B/P (MAP) Pulse Ox O2 Delivery O2 Flow Rate FiO2 09/03/20 14:00 97.3 80 20 124/53 (76) 92 Room Air 09/03/20 06:00 3.0 I&O- Last 24 Hours up to 6 AM 09/03/20 06:00 Intake Total 0 ml Balance 0 ml GME ATTESTATION GME ATTESTATION My faculty preceptor for this patient encounter was physically present during the encounter and was fully available. All aspects of the patient interview, examination, medical decision making process, and medical care plan development were reviewed and approved by the faculty preceptor. The faculty preceptor is aware and concurs with the plan as stated in the body of this note and will attest to such by his/her cosignature. ATTENDING NOTE I, Cuba Patricia, have independently examined this patient and performed my own physical exam, as well as reviewed the documentation and edited where necessary. I have discussed in detail with the resident / student the findings and plan of treatment as documented by the resident / student and edited their note. I agree with their findings and treatment plan and have edited their documentation. I will continue to follow the patient during this hospital stay. YOBANY GIBSON D.O. Sep 03, 2020 18:45 CUBA PATRICIA MD Sep 04, 2020 13:51
[2020-09-03] MEDS ORDERED: VANCOMYCIN HCL 1,000 MG, VIAL MATE ADAPTER 1 EACH in NS 250 ML IV SCH ×2 (20:00→22:00)
[2020-09-03] MEDS: PIPERACILLIN/TAZOBACTAM SOD 4.5 GM in D5W MINI-BAG PLUS 50 ML IV SCH (20:34)
[2020-09-03] MEDS ORDERED: VANCOMYCIN HCL 750 MG, VIAL MATE ADAPTER 1 EACH in NS 250 ML IV ONE (21:00)
[2020-09-03] MEDS ORDERED: CitaloPRAM (CeleXA) 10 MG TABLET PO SCH (21:00)
[2020-09-03] MEDS ORDERED: ATORVASTATIN 20 MG TAB PO SCH (21:00)
[2020-09-04] VITALS (28 sets, daily range): BP systolic 116–147; BP diastolic 56–68; O2SAT 83–98
[2020-09-04] MEDS: PIPERACILLIN/TAZOBACTAM SOD 4.5 GM in D5W MINI-BAG PLUS 50 ML IV SCH ×4 (01:24→20:05)
[2020-09-04] MEDS: VALPROATE SOD INJ 1,000 MG in D5W 50 ML IV SCH ×2 (05:07→17:38)
[2020-09-04] MEDS: HEPARIN SOD (PORCINE) 5000UNITS/ML 1ML VIAL/SYRINGE SC SCH ×3 (05:07→21:07)
[2020-09-04 06:04] LABS: BASO % 0.2 % (0.0-1.0); EOS % 0.1 % (0.0-3.0); HEMATOCRIT 31.8 % (36.0-47.0); HEMOGLOBIN 9.9 g/dl (12.0-15.5); LYMPH # 2.4 10^3/uL (1.5-5.0); LYMPH % 16.3 % (24.0-44.0); MEAN CORPUSCULAR HEMOGLOBIN 29.6 pg (27.0-33.0); MEAN CORPUSCULAR HGB CONC 31.1 g/dl (32.0-36.5); MEAN CORPUSCULAR VOLUME 95.2 fl (80.0-96.0); MONO # 1.9 10^3/uL (0.0-0.8); MONO % 12.8 % (2.0-8.0); NEUTROPHILS # 10.1 10^3/uL (1.5-8.5); NEUTROPHILS % 69.2 % (36.0-66.0); PLATELET COUNT, AUTOMATED 158 10^3/uL (150-450); RED BLOOD COUNT 3.34 10^6/uL (4.00-5.40)
[2020-09-04 06:05] LABS: WHITE BLOOD COUNT 14.6 10^3/uL (4.0-10.0)
[2020-09-04 06:18] LABS: CALCIUM LEVEL 8.4 MG/DL (8.8-10.2); CREATININE FOR GFR 1.02 MG/DL (0.55-1.30); GLOMERULAR FILTRATION RATE 56.6 (>39); MAGNESIUM LEVEL 1.8 MG/DL (1.8-2.4)
[2020-09-04 06:51] LABS: ABG BASE EXCESS 1.2 (-2.0-2.0); ABG HCO3 25.8 MEQ/L (22.0-26.0); ABG O2 SATURATION 91.7 % (95.0-99.0); ABG PARTIAL PRESSURE CO2 41.1 mmHg (35.0-45.0); ABG PARTIAL PRESSURE O2 65.6 mmHg (75.0-100.0); ABG STANDARD HCO3 25.4 MEQ/L (22.0-26.0); ABG TOTAL CO2 27.1 MEQ/L (23.0-31.0); ABG pH (ARTERIAL) 7.416 UNITS (7.350-7.450)
[2020-09-04] MEDS: D5W/0.45% SODIUM CHLORIDE 1,000 ML IV SCH ×2 (07:00→16:08)
--- NOTE | 2020-09-04 09:50 | ECGEPIP ---
[facility] Test Date: 2020-09-03 Pat Name: MAIKEL ZURITA Department: Room: [place] [address] Gender: Female Tonger: arsenio : 1945 Requested By: ABIMAEL PATRICIA Order Number: [id number] Reading MD: Michel Fong Measurements Intervals [place] Rate: 88 P: 39 AR: 128 QRS: -37 QRSD: 58 T: 39 QT: 334 QTc: 404 Interpretive Statements Normal sinus rhythm Left axis deviation Low voltage QRS Possible inferior infarct , age undetermined vs left anterior hemiblock Compared to prior tracings in the system. No remarkable changes Electronically Signed on 09-04-2020 9:50:28 EDT by Michel Fong
[2020-09-04] MEDS ORDERED: LIDOCAINE 1% MDV 20ML VIAL As Ordered ONE (10:33)
[2020-09-04] MEDS ORDERED: LIDOCAINE 1% MDV 20ML VIAL SC ONE (11:10)
--- NOTE | 2020-09-04 11:20 | REP ---
INDICATION: TLC placement. COMPARISON: Portable chest, 09/03/2020 TECHNIQUE: Sitting AP portable chest examination was performed. FINDINGS: There is continued airspace disease in the left lung base consistent with atelectasis or pneumonia. The right lung is clear. There is no congestive heart failure. There has been interval placement of a left subclavian deep line with the tip in the right brachiocephalic vein. IMPRESSION: Incidental Findings: Left subclavian deep line tip in the right brachiocephalic vein. The critical information above was relayed directly by me by telephone to the PCU on 09/04/2020 at 11:14 am with readback verification. <Electronically signed by Sergio Storey > 09/04/20 [id number]
[2020-09-04] MEDS: VANCOMYCIN HCL 1,000 MG, VIAL MATE ADAPTER 1 EACH in NS 250 ML IV SCH (14:13)
--- NOTE | 2020-09-04 15:00 | IPNPDOC ---
Text Note Date of Service The patient was seen on 09/04/20. NOTE SUBJECTIVE: Patient was seen and examined at bedside this morning. She is nonverbal at baseline. Patient continues to appear lethargic. She withdraws to painful stimuli. Family is not currently at bedside. Nurse reports overnight patient lost IV access. Nurse states she was able to get 1 small peripheral IV in the patient's right hand. However, nurse is concerned that we may lose this access point as well. OBJECTIVE: VITAL SIGNS: See below GENERAL: Appears lethargic and is nonresponsive to verbal stimuli, responds by withdrawing to painful stimuli, patient is in no acute distress HEENT: Normocephalic, atraumatic, moist mucous membranes. NECK: Supple, trachea midline CARDIOVASCULAR: Regular rate and rhythm, normal S1 and S2 RESPIRATORY: Lung sounds diminished bilaterally. No wheezing rhonchi or rales appreciated ABDOMEN: Obese, soft, nondistended, bowel sounds present EXTREMITIES: No edema. NEUROLOGIC: Unable to assess due to lethargy ASSESSMENT/PLAN: 75-year-old female with past medical history of Parkinson's dementia, multiple CVAs now nonverbal, PRES syndrome, encephalomalacia, and COPD who presented with declining mental status, lethargy, and poor oral intake found to be dehydrated and unable to swallow, admitted for further evaluation and management, now developed new left lower lobe pneumonia #Altered mental status / Acute metabolic encephalopathy Likely secondary to progression of chronic neurologic diseases as discussed below, less likely 2/2 infectious etiology or medications Sedating home medications held including melatonin, Myrbetriq May also be related to acute infection, treatment as discussed below #Acute hypoxic respiratory failure secondary to left lower lobe pneumonia Patient became hypoxic in the evening on 09/03/2020. Chest x-ray revealed new pneumonia compared to the day prior Possibly secondary to aspiration, patient is n.p.o. IV antibiotic broad coverage with vancomycin and Zosyn day #2 Sputum culture pending. Blood cultures pending. Currently requiring oxygen via Venturi mask at 8 L FiO2 35%, continue to titrate down as tolerated to maintain saturations greater than 90% #Dehydration with poor oral intake Patient is currently n.p.o. due to lethargy. Speech therapy unable to evaluate patient Will need to address nutrition with family. Per discussion 09/03/2020 would like to hold off on feeding tube right now #Poor peripheral venous access Dr. Mcneill consulted today to place central line Left subclavian line was placed with the tip crossing above the SVC to the right side We will continue to use subclavian line as a peripheral access, may consider switching to a midline or PICC line when IR is available on Sunday #Chronic anemia H&H stable, monitor CBC daily #Multiple neurologic disorders including seizure disorder, PRES, Parkinson's dementia, prior CVAs Likely contributes greatly to the patient's neurologic status Continue seizure prophylaxis with IV valproic acid As the patient is n.p.o. she is not able to take most of her medications including carbidopa levodopa, citalopram, atorvastatin, and aspirin Patient uses olanzapine at home, currently available as needed IM for agitation #Pressure ulcer on the coccyx and heels Supportive care, pressure relieving casts to bilateral ankles Coccyx ulceration may have some infection, consider debridement, antibiotics as above Wound care consult placed #Hx of COPD Not on any home inhalers DVT prophylaxis: - c/w Subcutaneous heparin CODE STATUS: - DNR/DNI Prognosis: - Poor Disposition: - Pending clinical improvement, family is interested only in local placement and would prefer to have the patient return home with Myesha the patient's sister if local placement is unavailable VS,Fishbone, I+O VS, Fishbone, I+O Laboratory Tests 09/04/20 05:46 Vital Signs Date Time Temp Pulse Resp B/P (MAP) Pulse Ox O2 Delivery O2 Flow Rate FiO2 09/04/20 09:02 89 Venturi Mask 8.0 31 09/04/20 08:00 99.1 88 24 116/56 (76) I&O- Last 24 Hours up to 6 AM 09/04/20 06:00 Intake Total 370 ml Balance 370 ml GME ATTESTATION GME ATTESTATION My faculty preceptor for this patient encounter was physically present during the encounter and was fully available. All aspects of the patient interview, examination, medical decision making process, and medical care plan development were reviewed and approved by the faculty preceptor. The faculty preceptor is aware and concurs with the plan as stated in the body of this note and will attest to such by his/her cosignature. ATTENDING NOTE I, Cuba Patricia, have independently examined this patient and performed my own physical exam, as well as reviewed the documentation and edited where necessary. I have discussed in detail with the resident / student the findings and plan of treatment as documented by the resident / student and edited their note. I agree with their findings and treatment plan and have edited their documentation. I will continue to follow the patient during this hospital stay. YOBANY GIBSON D.O. Sep 04, 2020 15:00 CUBA PATRICIA MD Sep 04, 2020 15:12
[2020-09-04] MEDS: LATANOPROST 0.005% OPHTH SOLN 2.5 ML OU SCH (21:07)
[2020-09-05] VITALS (13 sets, daily range): BP systolic 107–141; BP diastolic 50–60; O2SAT 94–96
[2020-09-05] MEDS: PIPERACILLIN/TAZOBACTAM SOD 4.5 GM in D5W MINI-BAG PLUS 50 ML IV SCH ×4 (02:09→20:15)
[2020-09-05] MEDS: D5W/0.45% SODIUM CHLORIDE 1,000 ML IV SCH ×2 (02:09→15:27)
[2020-09-05] MEDS: VALPROATE SOD INJ 1,000 MG in D5W 50 ML IV SCH ×2 (05:14→17:41)
[2020-09-05] MEDS: HEPARIN SOD (PORCINE) 5000UNITS/ML 1ML VIAL/SYRINGE SC SCH ×3 (05:14→22:45)
[2020-09-05 06:55] LABS: BASO % 0.2 % (0.0-1.0); EOS # 0.1 10^3/uL (0.0-0.5); EOS % 1.1 % (0.0-3.0); HEMOGLOBIN 8.2 g/dl (12.0-15.5); LYMPH # 1.7 10^3/uL (1.5-5.0); MEAN CORPUSCULAR HEMOGLOBIN 29.4 pg (27.0-33.0); MEAN CORPUSCULAR HGB CONC 30.4 g/dl (32.0-36.5); MEAN CORPUSCULAR VOLUME 96.8 fl (80.0-96.0); MONO % 11.7 % (2.0-8.0); NEUTROPHILS # 5.6 10^3/uL (1.5-8.5); NEUTROPHILS % 65.7 % (36.0-66.0); PLATELET COUNT, AUTOMATED 122 10^3/uL (150-450); RED BLOOD COUNT 2.79 10^6/uL (4.00-5.40); WHITE BLOOD COUNT 8.5 10^3/uL (4.0-10.0)
[2020-09-05 07:21] LABS: BLOOD UREA NITROGEN 23 MG/DL (7-18); CALCIUM LEVEL 8.1 MG/DL (8.8-10.2); CARBON DIOXIDE LEVEL 29 MEQ/L (21-32); CHLORIDE LEVEL 110 MEQ/L (98-107); CREATININE FOR GFR 0.78 MG/DL (0.55-1.30); GLOMERULAR FILTRATION RATE > 60.0 (>39); GLUCOSE, FASTING 122 MG/DL (70-100); POTASSIUM SERUM 3.3 MEQ/L (3.5-5.1); SODIUM LEVEL 143 MEQ/L (136-145)
[2020-09-05] MEDS: KCL 10MEQ/100ML SWI (KRUN) 10 MEQ in IV 1 EA IV SCH ×3 (08:56→11:19)
--- NOTE | 2020-09-05 09:46 | IPNPDOC ---
Text Note Date of Service The patient was seen on 09/05/20. NOTE Subjective: Patient is a 75-year-old female with a PMHx of Parkinson's dementia, Multiple CVAs (Nonverbal), PRES syndrome, Encephalomalacia, and COPD who presented to the emergency room after family had noted decreased oral intake that has been progressive over the last few weeks. At home patient is bedbound and nonverbal. Sister notes that she was able to feed her before, however, has gotten to the point where she has no longer taking part and sleeping frequently. Patient was admitted to the hospital service for further evaluation and treatment. Patient was seen and examined at the bedside. Currently patient remains nonverbal.. She does not appear to be in any acute distress. Objective: Vitals (See below) General: Lying in bed, does not appear to be in any acute distress, non-verbal HEENT: NC, AT CVS: +S1S2 Lungs: Fair air entry b/l, -w/r/r Abdomen: Soft, ND, NT Extremities: - Edema, - Calf tenderness Assessment and plan: Altered mental status / Acute metabolic encephalopathy - possibly 2/2 progression of dementia, less likely 2/2 infectious etiology or medications - Currently has not taken any home medications; nor has she received any antipsychotics inpatient - See below Acute hypoxic respiratory failure - likely 2/2 left lower lobe pneumonia - possibly 2/2 aspiration and unability to clear secretions - Clinically remains unchanged - Supplemental oxygen requirement remains relatively stable over last 24 hours - Leukocytosis improved - PCT mildly elevated - Blood cultures 09/03: 1 of 2 positive - Gram positive cocci in clusters - Blood cultures 09/05: Pending - Sputum cultures - pending - c/w Vancomycin and Zosyn (Day #3) Poor oral intake - c/w Speech therapy when more awake - Patient's family considering feeding tube; however may proceed with WAITER/WAITRESS HEAD Dehydration - likely 2/2 Poor oral intake - Cr continues to improve - c/w IV fluid hydration; will reduce rate s/p Lactic acidosis Hypokalemia - Will supplement Poor peripheral venous access - s/p L subclavian vein line placement (cannot be used as central line as it crosses midline) - May consider switching to a midline or PICC line when IR is available on Sunday Chronic anemia - Hg has trended down; however will reduce IV fluids - No evidence of bleeding Multiple neurologic disorders; Seizure disorder, PRES, Parkinson's dementia, Prior CVAs - Likely contributes greatly to the patient's neurologic status - c/w Valproic acid IV - Multiple medications on hold (re: Dysphagia): Carbidopa / Levodopa, Citalopram, Atorvastatin, Aspirin, Olanzapine Pressure ulcer on the coccyx and heels - c/w wound care and positioning - c/w antibiotics as state above COPD - No evidence of exacerbation - Currently not on any inhalers at home DVT prophylaxis - c/w Heparin SQ Code status: - DNR / DNI Prognosis: - Poor Disposition: - Pending clinical improvement - Goals of care discussion are ongoing - considering WAITER/WAITRESS HEAD vs placement locally if PEG is considered VS,Fishbone, I+O VS, Fishbone, I+O Laboratory Tests 09/05/20 06:38 Vital Signs Date Time Temp Pulse Resp B/P (MAP) Pulse Ox O2 Delivery O2 Flow Rate FiO2 09/05/20 08:00 97.3 73 22 111/51 (71) 95 Venturi Mask 8.0 34 I&O- Last 24 Hours up to 6 AM 09/05/20 06:00 Intake Total 1980 ml Output Total 0 ml Balance 1980 ml ABIMAEL PATRICIA MD Sep 05, 2020 09:46
[2020-09-05] MEDS: VANCOMYCIN HCL 1,000 MG, VIAL MATE ADAPTER 1 EACH in NS 250 ML IV SCH (14:57)
[2020-09-05] MEDS: LATANOPROST 0.005% OPHTH SOLN 2.5 ML OU SCH (20:15)
[2020-09-06] VITALS: BP 132/61
[2020-09-06] MEDS ORDERED: VANCOMYCIN HCL 1,000 MG, VIAL MATE ADAPTER 1 EACH in NS 250 ML IV SCH ×3
[2020-09-06] MEDS: PIPERACILLIN/TAZOBACTAM SOD 4.5 GM in D5W MINI-BAG PLUS 50 ML IV SCH ×2 (02:36→08:53)
[2020-09-06 04:00] VITALS: BP 127/88
[2020-09-06] MEDS: VALPROATE SOD INJ 1,000 MG in D5W 50 ML IV SCH (05:07)
[2020-09-06] MEDS: D5W/0.45% SODIUM CHLORIDE 1,000 ML IV SCH (05:08)
[2020-09-06] MEDS: HEPARIN SOD (PORCINE) 5000UNITS/ML 1ML VIAL/SYRINGE SC SCH (05:08)
[2020-09-06 07:54] VITALS: BP 116/56
[2020-09-06 08:14] LABS: BASO % 0.5 % (0.0-1.0); EOS # 0.1 10^3/uL (0.0-0.5); EOS % 1.9 % (0.0-3.0); HEMATOCRIT 25.2 % (36.0-47.0); HEMOGLOBIN 7.7 g/dl (12.0-15.5); LYMPH # 1.4 10^3/uL (1.5-5.0); MEAN CORPUSCULAR HEMOGLOBIN 29.2 pg (27.0-33.0); MEAN CORPUSCULAR HGB CONC 30.6 g/dl (32.0-36.5); MEAN CORPUSCULAR VOLUME 95.5 fl (80.0-96.0); MONO # 0.7 10^3/uL (0.0-0.8); MONO % 11.7 % (2.0-8.0); NEUTROPHILS # 3.8 10^3/uL (1.5-8.5); PLATELET COUNT, AUTOMATED 108 10^3/uL (150-450); RED BLOOD COUNT 2.64 10^6/uL (4.00-5.40); WHITE BLOOD COUNT 6.3 10^3/uL (4.0-10.0)
--- NOTE | 2020-09-06 08:49 | RO ---
OPERATIVE NOTE DATE OF OPERATION: 09/04/2020 PREOPERATIVE DIAGNOSIS: Pneumonia, need for vascular access, need for antibiotics. POSTOPERATIVE DIAGNOSIS: Pneumonia, need for vascular access, need for antibiotics. PROCEDURE: Insertion of left subclavian central line. SURGEON: Santana Mcneill MD MOLD BLOWER: ANESTHESIA: DESCRIPTION OF PROCEDURE: The patient was prepped and draped in usual sterile fashion. Permission had already been obtained from the family by Dr. Harrell. The infraclavicular fossa on the left was infiltrated with 1% Lidocaine. The vein was found on the third pass more medially. Wire was placed. Incision was made over the wire and tract dilated. A central line triple lumen catheter was then advanced. It did not aspirate well. Therefore, I pulled it back a little bit until it did aspirate. It was then aspirated and flushed without difficulty. As it was more out than usual it was secured to the chest wall with 3-0 silk suture around the catheter itself. Chest x-ray revealed the catheter to be crossing the midline to the right subclavian vein. However, as this was only needed for vascular access and antibiotics I did not elect to reposition it. The patient tolerated the procedure well.
[2020-09-06 09:10] LABS: BLOOD UREA NITROGEN 18 MG/DL (7-18); CALCIUM LEVEL 7.9 MG/DL (8.8-10.2); CARBON DIOXIDE LEVEL 28 MEQ/L (21-32); CHLORIDE LEVEL 109 MEQ/L (98-107); CREATININE FOR GFR 0.56 MG/DL (0.55-1.30); GLOMERULAR FILTRATION RATE > 60.0 (>39); GLUCOSE, FASTING 91 MG/DL (70-100); POTASSIUM SERUM 3.4 MEQ/L (3.5-5.1); SODIUM LEVEL 144 MEQ/L (136-145)
[2020-09-06] MEDS ORDERED: KCL 10MEQ/100ML SWI (KRUN) 10 MEQ in IV 1 EA IV SCH (10:20)
[2020-09-06] MEDS: METOPROLOL 5 MG/5 ML VIAL IV SCH ×3 (10:55→11:05)
[2020-09-06] MEDS ORDERED: ATROPINE SULFATE 1% OP SOLN 2 ML BTL SL PRN ×2 (11:05)
[2020-09-06] MEDS ORDERED: BISACODYL 10 MG SUPP PR PRN ×2 (11:05)
[2020-09-06] MEDS ORDERED: SCOPOLAMINE 1MG TRANSDERMAL PATCH TOP PRN (11:05)
[2020-09-06] MEDS ORDERED: MORPHINE 2 MG/ML 1ML VIAL (J2270) IV PRN (11:05)
[2020-09-06] MEDS ORDERED: ONDANSETRON 4MG/2ML VIAL IV PRN ×2 (11:05)
[2020-09-06] MEDS ORDERED: ACETAMINOPHEN 650 MG SUPP PR PRN ×2 (11:05)
[2020-09-06] MEDS ORDERED: HYOSCYAMINE SULFATE 0.125 MG SUBL TABLET PO PRN ×2 (11:05)
[2020-09-06] MEDS ORDERED: LORazepam 2 MG/ML VIAL IV PRN (11:05)
[2020-09-06] MEDS: MORPHINE 2 MG/ML 1ML VIAL (J2270) IV PRN ×3 (11:33→22:31)
[2020-09-07] MEDS: MORPHINE 2 MG/ML 1ML VIAL (J2270) IV PRN ×6 (01:08→18:29)
[2020-09-07] MEDS: SCOPOLAMINE 1MG TRANSDERMAL PATCH TOP PRN (06:27)
[2020-09-07] MEDS: LORazepam 2 MG/ML VIAL IV PRN ×2 (11:47→14:25)
[2020-09-08] MEDS ORDERED: MORPHINE 10MG/0.5ML ORAL CONCENTRATE SOLUTION U/D SL PRN (02:35)
[2020-09-08] MEDS ORDERED: LORazepam 2 MG TAB PO PRN (02:35)
[2020-09-08] MEDS: MORPHINE 2 MG/ML 1ML VIAL (J2270) IV PRN ×3 (09:35→20:09)
[2020-09-08] MEDS: SODIUM CHLORIDE 0.9% INJ 10 ML SYR IV PRN ×2 (09:44→10:52)
[2020-09-08] MEDS ORDERED: LORazepam 2 MG/ML VIAL As Ordered ONE (10:41)
[2020-09-08] MEDS: LORazepam 2 MG/ML VIAL IV PRN ×3 (10:49→22:19)
[2020-09-08] MEDS: SODIUM CHLORIDE 0.9% INJ 10 ML SYR IV SCH ×2 (13:49→22:19)
[2020-09-09] MEDS: MORPHINE 2 MG/ML 1ML VIAL (J2270) IV PRN ×5 (04:19→23:02)
[2020-09-09] MEDS: SODIUM CHLORIDE 0.9% INJ 10 ML SYR IV PRN ×3 (04:19→16:46)
[2020-09-09] MEDS: SODIUM CHLORIDE 0.9% INJ 10 ML SYR IV SCH ×3 (06:23→20:19)
[2020-09-09] MEDS ORDERED: LORazepam 2 MG/ML VIAL As Ordered ONE (16:41)
[2020-09-09] MEDS: SCOPOLAMINE 1MG TRANSDERMAL PATCH TOP PRN (16:46)
[2020-09-09] MEDS: LORazepam 2 MG/ML VIAL IV PRN (16:46)
[2020-09-10] MEDS: MORPHINE 2 MG/ML 1ML VIAL (J2270) IV PRN ×8 (01:30→20:44)
[2020-09-10] MEDS: SODIUM CHLORIDE 0.9% INJ 10 ML SYR IV SCH ×3 (04:00→20:44)
[2020-09-10] MEDS: SODIUM CHLORIDE 0.9% INJ 10 ML SYR IV PRN ×4 (09:08→18:10)
[2020-09-10] MEDS: LORazepam 2 MG/ML VIAL IV PRN ×2 (09:23→23:14)
[2020-09-11] MEDS: MORPHINE 2 MG/ML 1ML VIAL (J2270) IV PRN ×6 (03:15→23:00)
[2020-09-11] MEDS: SODIUM CHLORIDE 0.9% INJ 10 ML SYR IV PRN ×5 (03:16→18:49)
[2020-09-11] MEDS: SODIUM CHLORIDE 0.9% INJ 10 ML SYR IV SCH ×3 (05:41→22:03)
[2020-09-11] MEDS ORDERED: LORazepam 2 MG/ML VIAL As Ordered ONE (18:46)
[2020-09-11] MEDS: LORazepam 2 MG/ML VIAL IV PRN ×2 (18:49→23:00)
[2020-09-12] MEDS: MORPHINE 2 MG/ML 1ML VIAL (J2270) IV PRN ×3 (01:06→21:53)
[2020-09-12] MEDS: SODIUM CHLORIDE 0.9% INJ 10 ML SYR IV PRN (01:06)
[2020-09-12] MEDS: SODIUM CHLORIDE 0.9% INJ 10 ML SYR IV SCH ×3 (05:13→21:54)
[2020-09-12] MEDS ORDERED: LORazepam 2 MG/ML VIAL As Ordered ONE (12:54)
[2020-09-12] MEDS: LORazepam 2 MG/ML VIAL IV PRN (12:59)
[2020-09-13] MEDS: SODIUM CHLORIDE 0.9% INJ 10 ML SYR IV PRN (01:20)
[2020-09-13] MEDS: MORPHINE 2 MG/ML 1ML VIAL (J2270) IV PRN (01:20)
[2020-09-13] MEDS: LORazepam 2 MG/ML VIAL IV PRN (03:34)
--- NOTE | 2020-09-13 11:07 | DS.PDOC ---
Discharge Summary General Date of Admission Sep 02, 2020 at 21:29 Date of Discharge 09/13/2020 Attending Physician: ODETTE SALVADOR MD Discharge Summary PROCEDURES PERFORMED DURING STAY: L subclavian TLC ADMITTING DIAGNOSES: CAP DIVYA Dehydration UTI Sacral decubitus ulcerations DISCHARGE DIAGNOSES: Cardiac arrest 2/2 2/2 respiratory arrest i/s/o hypoxemic respiratory failure with ongoing PNA and sepsis 2/2 CAP, bacteremia and UTI CAP DIVYA Dehydration E.coli UTI Sacral decubitus ulcerations Parkinson's disease Dementia History of press syndrome CVA which left patient nonverbal, visual and hearing impairment requiring glasses and hearing aids Functional quadraplegia requiring assistance with ADLs Staph hominis and staph capitis bacteremia Acute hypoxemic respiratory failure Malnutrition Chronic anemia Hypokalemia COPD COMPLICATIONS/CHIEF COMPLAINT: Acute Kidney Inj,Dehydration,Sacral Decubitus Ulce. HISTORY OF PRESENT ILLNESS: 75-year-old W with a history of PRES, Parkinson's dementia, known brain lesion with postsurgical changes and encephalomalacia, functional quadriplegia requiring assistance with ADLs, Sacral decubitus ulcerations who presented with poor po and lethargy x2 days. Patient's pelts skinner, sister, who was at bedside reported that the patient had a progressive decline since June in general however preceding 2 days with her not eating and drinking much at all made things more difficult. Patient had a known coccyx pressure injury and was seen at wound care on the 08/31; Notes detail wound had been getting bigger. Patient's sister admitted to having a hard time providing care. Patient was nonverbal at baseline and mostly sleeping and during the initial exam was in no acute distress. She did have labile SPO2 and improvement with nasal cannula 2 L to SP O2 92% no history of use of oxygen at bedtime but she does have a history of smoking. HOSPITAL COURSE: On evaluation , she was mildly hypoxemic, UA was positive and she was started on antibiotics for PNA, UTI and placed on supplemental oxygen. She had a L subclavian TLC palced by Dr. Mcneill as the team had difficulty gaining access and given her poor nutritional status, there was much discussion about potential PEG placement but ultimately she was made [facility]. After de-escalating her care, BCx eventually resulted Staph hominis as wella s staph capitis while UCx per way grew E.coli. She on 09/13 at 3.56AM likely 2/2 respiratory arrest i/s/o hypoxemic respiratory failure with ongoing PNA and sepsis 2/2 CAP, bacteremia and UTI. DISCHARGE MEDICATIONS: Please see below. ALLERGIES: Please see below. PHYSICAL EXAMINATION ON DISCHARGE: LABORATORY DATA: Please see below. IMAGING: CT HEAD: Brain: The brain demonstrates marked generalized volume loss, advanced for age. Multiple old transcortical infarcts, as before. There is an old left cerebellar infarct, as before. Cerebral ventricles: The ventricles are enlarged in keeping with volume loss. Paranasal sinuses: Visualized sinuses are unremarkable. No fluid levels. Mastoid air cells: Visualized mastoid air cells are well aerated. Bones/joints: No acute calvarial fracture seen. Soft tissues: Unremarkable. IMPRESSION: No acute intracranial abnormality seen. 09/02 CXR: Lungs: Dependent subsegmental pulmonary atelectasis. Pleural spaces: Unremarkable. No pleural effusion. No pneumothorax. Heart/Mediastinum: Unremarkable. No cardiomegaly. Bones/joints: Unremarkable. Organs: Cholecystectomy. IMPRESSION: Dependent subsegmental pulmonary atelectasis. 09/03 CXR: There has been interval development of airspace disease in the left lung base consistent with atelectasis or pneumonia. The right lung is clear. There is calcific vascular disease of the thoracic aorta. There is no evidence of congestive heart failure. IMPRESSION: Interval development of atelectasis or pneumonia in the left lung base. 09/04 CXR: There is continued airspace disease in the left lung base consistent with atelectasis or pneumonia. The right lung is clear. There is no congestive heart failure. There has been interval placement of a left subclavian deep line with the tip in the right brachiocephalic vein. IMPRESSION: Incidental Findings: Left subclavian deep line tip in the right brachiocephalic vein. The critical information above was relayed directly by me by telephone to the PCU on 09/04/2020 at 11:14 am with readback verification. PROGNOSIS: ACTIVITY: DIET: DISCHARGE PLAN: DISPOSITION: 20 . DISCHARGE INSTRUCTIONS: ITEMS TO FOLLOWUP ON ON OUTPATIENT: DISCHARGE CONDITION: TIME SPENT ON DISCHARGE: 33 minutes. Vital Signs/I&Os Vital Signs Date Time Temp Pulse Resp B/P (MAP) Pulse Ox O2 Delivery O2 Flow Rate FiO2 8/9/21 01:49 18 09/13/20 01:36 3.0 09/12/20 21:30 Nasal Cannula 09/10/20 09:00 50 I&O- Last 24 Hours up to 6 AM 09/13/20 06:00 Intake Total 0 ml Output Total 250 ml Balance -250 ml Microbiology Microbiology 09/05/20 Urine Culture - Final, Complete Escherichia Coli Escherichia Coli#2 09/05/20 Blood Culture - Final, Complete Staphylococcus Hominis Ssp Marga 09/05/20 Blood Culture - Final, Complete NO GROWTH AFTER 5 DAYS 09/03/20 Blood Culture - Final, Complete Staphylococcus Capitis 09/03/20 Blood Culture - Final, Complete NO GROWTH AFTER 5 DAYS Discharge Medications Scheduled Aspirin (Aspirin EC) 81 Mg Tablet.dr, 81 MG PO DAILY, (Reported) Atorvastatin Calcium (Atorvastatin Calcium) 40 Mg Tablet, 40 MG PO QHS, (Reported) Carbidopa/Levodopa (Sinemet 25-100 mg Tablet) 1 Each Tablet, 2 TAB PO QID, (Reported) 3 HOURS BETWEEN EACH DOSE PER FAMILY Citalopram Hydrobromide (Citalopram HBr) 10 Mg Tablet, 15 MG PO QHS, (Reported) Divalproex Sodium (Divalproex Sodium) 500 Mg Tablet.dr, 1,000 MG PO BID, (Reported) Latanoprost (Xalatan) 0.005% 2.5ML Drops, 1 DROP OU QHS, (Reported) Melatonin (Melatonin) 5 Mg Capsule, 5 MG PO QHS, (Reported) Mirabegron (Myrbetriq) 50 Mg Tab.er.24h, 50 MG PO DAILY, (Reported) Olanzapine (Olanzapine) 2.5 Mg Tablet, 2.5 MG PO BID, (Reported) Allergies Coded Allergies: No Known Drug Allergies (Verified Allergy, Unknown, 07/20/20) ODETTE SALVADOR MD Sep 13, 2020 11:07
== END 2020-09-13 05:53 | disposition expired | DRG 70 ==
LOC: M ED 18:08 → M ED INP 21:29 → EEVIPCON 21:29 → ENRESERVTM 23:47 → ENRESERVDT 23:47 → M MS5PR 09-03 01:29 → M PCU 09-03 18:57 → M MSPAV 09-07 09:15
PROVIDERS: ADMIT Family Medicine; ATTEND Internal Medicine
DX: G93.40 Encephalopathy, unspecified (principal); J18.9 Pneumonia, unspecified organism; J96.01 Acute respiratory failure with hypoxia; R53.2 Functional quadriplegia; L89.624 Pressure ulcer of left heel, stage 4; L89.154 Pressure ulcer of sacral region, stage 4; A41.1 Sepsis due to other specified staphylococcus; E87.2 Acidosis; N39.0 Urinary tract infection, site not specified; E46 Unspecified protein-calorie malnutrition; E86.0 Dehydration; J44.9 Chronic obstructive pulmonary disease, unspecified; G93.41 Metabolic encephalopathy; B96.29 Other Escherichia coli [E. coli] as the cause of diseases classified elsewhere; G20 Parkinson's disease; D64.9 Anemia, unspecified; E87.6 Hypokalemia